=== PATIENT | male | born 1965 | race Caucasian/White ===

== ENCOUNTER → 2018-06-20 09:50 | Outpatient (CLI) | payer OTHER, SELFPAY ==
[2018-06-20 14:49] LABS: Absolute Lymphocyte Count 2.46 X10^3/ul (0.83-4.51); Absolute Neutrophil Count 6.2 X10^3/uL (2.0-7.7); Basophil# 0.04 X10^3/uL; Basophil% 0.4 % (0-1); Eosinophil# 0.34 X10^3/uL; Eosinophils% 3.5 % (0-5); Hematocrit 46.6 % (40-54); Hemoglobin 15.5 g/dl (13.0-16.5); Lymphocyte # 2.46 X10^3/ul (4.0); Lymphocyte % 25.2 % (19-41); Mean Corp Hgb Conc 33.3 g/gl (32-36); Mean Corpuscular Hgb 27.8 pg (27.0-32.0); Mean Corpuscular Volume 83.5 fL (80-94); Mean Platelet Vol. 9.6 fl (6.2-12.0); Monocyte# 0.58 X10^3/uL; Monocyte% 5.9 % (0-10); Neutrophil # 6.22 X10^3/uL (2.7-7.7); Neutrophil % 63.6 % (47-70); POSITIVE COUNT NO; POSITIVE DIFFERENTIAL NO; POSITIVE MORPHOLOGY NO; Platelet Count 194 K/mm3 (150-450); RBC Distribution Width CV 12.6 % (11.6-14.6); RBC Distribution Width SD 38.1 fl (35.1-43.9); Red Blood Count 5.58 M/mm3 (4.6-6.2); White Blood Count 9.8 K/mm3 (4.4-11.0)
[2018-06-20 15:31] LABS: ALB/GLOB Ratio 1.2 RATIO (0.9-2.4); AST(SGOT) 37 U/L (15-37); Alanine Aminotransfer ALT/SGPT 62 U/L (16-61); Albumin, Serum 4.3 g/dL (3.2-5.0); Alkaline Phosphatase 88 U/L (45-117); Anion Gap 8 (5-15); BUN 18 mg/dL (7-18); BUN/Creat Ratio 19.4 RATIO (10-20); Chloride 101 mmol/L (98-107); Cholesterol 140 mg/dL (200); Creatinine, Serum 0.93 mg/dL (0.70-1.30); EST Glomerular Filtration Rate 90 mL/min (>60); Est Glom Filt Rate - Afr Amer 109 mL/min (>60); Globulin 3.7 g/dL (2.2-4.2); Glucose 253 mg/dL (74-106); High Density Lipoprotein 31 mg/dL; Potassium 4.7 mmol/L (3.5-5.1); Sodium Level 135 mmol/L (136-145); Triglycerides 477 mg/dL
== END ==
PROVIDERS: Referring Provider Nurse Practitioner; Visit Provider Nurse Practitioner
DX: E78.5 Hyperlipidemia, unspecified (principal); Z12.5 Encounter for screening for malignant neoplasm of prostate
CPT/HCPCS: 80053; 80061; 84153; 85025; G0103

== ENCOUNTER → 2018-10-03 17:49 | Outpatient (REF) | payer OTHER, SELFPAY ==
[2018-09-28 13:38] VITALS: BMI 32.5
[2018-10-03 18:19] LABS: Cholesterol 89 mg/dL (200); High Density Lipoprotein 37 mg/dL; Triglycerides 118 mg/dL; Very Low Density Lipoprotein 24 mg/dL (5-40)
== END ==
LOC: LAB 17:49
PROVIDERS: Visit Provider Nurse Practitioner
DX: E11.65 Type 2 diabetes mellitus with hyperglycemia (principal)
CPT/HCPCS: 80061

== ENCOUNTER → 2019-01-09 | Outpatient (CLI) | payer OTHER, SELFPAY ==
[2019-01-09 12:39] VITALS: BMI 32.5
[2019-01-09 19:51] LABS: Cholesterol 117 mg/dL (200); High Density Lipoprotein 45 mg/dL; Triglycerides 169 mg/dL; Very Low Density Lipoprotein 34 mg/dL (5-40)
== END | disposition home or self-care (01) ==
PROVIDERS: Referring Provider Nurse Practitioner; Visit Provider Nurse Practitioner
DX: E78.5 Hyperlipidemia, unspecified (principal)
CPT/HCPCS: 80061

== ENCOUNTER → 2019-06-26 16:17 | Outpatient (CLI) | payer OTHER, SELFPAY ==
[2019-06-26 11:03] VITALS: BMI 32.6
[2019-06-26 16:35] LABS: Absolute Lymphocyte Count 2.54 X10^3/uL (0.83-4.51); Absolute Neutrophil Count 6.7 X10^3/uL (2.0-7.7); Basophil# 0.08 X10^3/uL; Basophil% 0.8 % (0-1); Eosinophil# 0.33 X10^3/uL; Eosinophils% 3.1 % (0-5); Hematocrit 49.4 % (40-54); Hemoglobin 16.5 g/dL (13.0-16.5); Lymphocyte # 2.54 X10^3/ul (4.0); Lymphocyte % 24.2 % (19-41); Mean Corp Hgb Conc 33.4 g/dL (32-36); Mean Corpuscular Hgb 28.4 pg (27.0-32.0); Mean Platelet Vol. 9.7 fl (6.2-12.0); Monocyte# 0.67 X10^3/uL; Monocyte% 6.4 % (0-10); NRBC Flagged by Analyzer 0 % (0-5); Neutrophil % 63.8 % (47-70); Platelet Count 230 K/mm3 (150-450); RBC Distribution Width CV 12.6 % (11.6-14.6); RBC Distribution Width SD 38.5 fl (35.1-43.9); Red Blood Count 5.81 M/mm3 (4.6-6.2); White Blood Count 10.5 K/mm3 (4.4-11.0)
[2019-06-26 17:01] LABS: ALB/GLOB Ratio 1.5 RATIO (0.9-2.4); AST(SGOT) 43 U/L (15-37); Alanine Aminotransfer ALT/SGPT 76 U/L (16-61); Albumin, Serum 4.5 g/dL (3.2-5.0); Alkaline Phosphatase 78 U/L (45-117); Anion Gap 8 (5-15); BUN 20 mg/dL (7-18); BUN/Creat Ratio 21.8 RATIO (10-20); Calcium,Total 9.1 mg/dL (8.5-10.1); Chloride 105 mmol/L (98-107); Cholesterol 99 mg/dL (200); Creatinine, Serum 0.92 mg/dL (0.70-1.30); EST Glomerular Filtration Rate 91 mL/min (>60); Est Glom Filt Rate - Afr Amer 110 mL/min (>60); Globulin 3.1 g/dL (2.2-4.2); Glucose 173 mg/dL (74-106); High Density Lipoprotein 35 mg/dL; Magnesium 2.1 mg/dL (1.6-2.6); PSA,Total - Annual Screen 0.45 ng/mL (0.00-4.00); Potassium 4.7 mmol/L (3.5-5.1); Protein, Total 7.6 g/dL (6.4-8.2); Sodium Level 137 mmol/L (136-145); Triglycerides 221 mg/dL; Very Low Density Lipoprotein 44 mg/dL (5-40)
== END ==
PROVIDERS: Visit Provider Nurse Practitioner
DX: I10 Essential (primary) hypertension (principal); R35.0 Frequency of micturition; R25.2 Cramp and spasm; E11.65 Type 2 diabetes mellitus with hyperglycemia
CPT/HCPCS: 80053; 80061; 83735; 84153; 85025; G0103

== ENCOUNTER → 2020-07-03 | Outpatient (CLI) | payer OTHER, SELFPAY ==
[2020-07-03 14:52] VITALS: BMI 31.1
[2020-07-03 22:47] LABS: Absolute Lymphocyte Count 2.34 X10^3/uL (0.83-4.51); Absolute Neutrophil Count 6.8 X10^3/uL (2.0-7.7); Basophil% 0.9 % (0-1); Eosinophils% 4.6 % (0-5); Hematocrit 50.5 % (40-54); Hemoglobin 16.7 g/dL (13.0-16.5); Lymphocyte # 2.34 X10^3/ul (4.0); Lymphocyte % 21.7 % (19-41); Mean Corp Hgb Conc 33.1 g/dL (32-36); Mean Corpuscular Hgb 27.6 pg (27.0-32.0); Mean Corpuscular Volume 83.3 fL (80-94); Mean Platelet Vol. 10.2 fl (6.2-12.0); Monocyte# 0.81 X10^3/uL; Monocyte% 7.5 % (0-10); NRBC Flagged by Analyzer 0 % (0-5); Neutrophil # 6.83 X10^3/uL (2.7-7.7); Neutrophil % 63.6 % (47-70); Platelet Count 225 K/mm3 (150-450); RBC Distribution Width CV 12.5 % (11.6-14.6); RBC Distribution Width SD 37.7 fl (35.1-43.9); Red Blood Count 6.06 M/mm3 (4.6-6.2); White Blood Count 10.8 K/mm3 (4.4-11.0)
[2020-07-03 23:07] LABS: ALB/GLOB Ratio 1.2 RATIO (0.9-2.4); AST(SGOT) 33 U/L (15-37); Alanine Aminotransfer ALT/SGPT 64 U/L (16-61); Albumin, Serum 4.5 g/dL (3.2-5.0); Alkaline Phosphatase 105 U/L (45-117); Anion Gap 9 (5-15); BUN 19 mg/dL (7-18); Calcium,Total 9.7 mg/dL (8.5-10.1); Chloride 101 mmol/L (98-107); Cholesterol 131 mg/dL (200); Creatinine, Serum 0.95 mg/dL (0.70-1.30); EST Glomerular Filtration Rate 87 mL/min (>60); Est Glom Filt Rate - Afr Amer 105 mL/min (>60); Globulin 3.8 g/dL (2.2-4.2); Glucose 156 mg/dL (74-106); High Density Lipoprotein 38 mg/dL; PSA,Total - Annual Screen 0.56 ng/mL (0.00-4.00); Potassium 4.8 mmol/L (3.5-5.1); Protein, Total 8.3 g/dL (6.4-8.2); Sodium Level 136 mmol/L (136-145); Triglycerides 302 mg/dL; Very Low Density Lipoprotein 60 mg/dL (5-40)
[2020-07-03 23:15] LABS: Hemoglobin A1c 11.1 % (3.8-5.6)
== END | disposition home or self-care (01) ==
PROVIDERS: Referring Provider Nurse Practitioner; Visit Provider Nurse Practitioner
DX: I10 Essential (primary) hypertension (principal); E78.5 Hyperlipidemia, unspecified; R35.0 Frequency of micturition; E11.65 Type 2 diabetes mellitus with hyperglycemia
CPT/HCPCS: 80053; 80061; 83036; 84153; 85025; G0103

== ENCOUNTER → 2021-06-22 | Outpatient (CLI) | payer OTHER, SELFPAY ==
[2021-06-22 21:32] LABS: Absolute Lymphocyte Count 1.69 X10^3/uL (0.83-4.51); Absolute Neutrophil Count 11.5 X10^3/uL (2.0-7.7); Basophil# 0.12 X10^3/uL; Basophil% 0.8 % (0-1); Eosinophil# 0.17 X10^3/uL; Eosinophils% 1.2 % (0-5); Hematocrit 48.1 % (40-54); Hemoglobin 16.1 g/dL (13.0-16.5); Lymphocyte # 1.69 X10^3/ul (0.83-4.51); Lymphocyte % 11.5 % (19-41); Mean Corp Hgb Conc 33.5 g/dL (32-36); Mean Corpuscular Hgb 28.2 pg (27.0-32.0); Mean Corpuscular Volume 84.2 fL (80-94); Mean Platelet Vol. 9.9 fl (6.2-12.0); Monocyte# 0.84 X10^3/uL; Monocyte% 5.7 % (0-10); NRBC Flagged by Analyzer 0 % (0-5); Neutrophil # 11.52 X10^3/uL (2.7-7.7); Neutrophil % 78.6 % (47-70); Platelet Count 232 K/mm3 (150-450); Red Blood Count 5.71 M/mm3 (4.6-6.2); White Blood Count 14.7 K/mm3 (4.4-11.0)
[2021-06-22 21:45] LABS: ALB/GLOB Ratio 1.3 RATIO (0.9-2.4); AST(SGOT) 42 U/L (15-37); Alanine Aminotransfer ALT/SGPT 80 U/L (16-61); Albumin, Serum 4.5 g/dL (3.2-5.0); Alkaline Phosphatase 88 U/L (45-117); Anion Gap 10 (5-15); BUN 26 mg/dL (7-18); BUN/Creat Ratio 22.4 RATIO (10-20); Calcium,Total 9.7 mg/dL (8.5-10.1); Chloride 101 mmol/L (98-107); Cholesterol 126 mg/dL (200); Creatinine, Serum 1.16 mg/dL (0.70-1.30); EST Glomerular Filtration Rate 69 mL/min (>60); Est Glom Filt Rate - Afr Amer 83 mL/min (>60); Globulin 3.5 g/dL (2.2-4.2); Glucose 259 mg/dL (74-106); High Density Lipoprotein 39 mg/dL; Potassium 4.3 mmol/L (3.5-5.1); Sodium Level 134 mmol/L (136-145); Triglycerides 294 mg/dL; Very Low Density Lipoprotein 59 mg/dL (5-40)
[2021-06-22 21:53] LABS: Hemoglobin A1c 10.6 % (3.8-5.6)
== END | disposition home or self-care (01) ==
PROVIDERS: Referring Provider Nurse Practitioner; Visit Provider Nurse Practitioner
DX: E11.65 Type 2 diabetes mellitus with hyperglycemia (principal); I10 Essential (primary) hypertension; E78.5 Hyperlipidemia, unspecified
CPT/HCPCS: 80053; 80061; 83036; 85025

== ENCOUNTER → 2022-01-07 | Outpatient (CLI) | payer OTHER, SELFPAY ==
[2022-01-07 23:37] LABS: ALB/GLOB Ratio 1.1 RATIO (0.9-2.4); AST(SGOT) 28 U/L (15-37); Alanine Aminotransfer ALT/SGPT 57 U/L (16-61); Albumin, Serum 3.7 g/dL (3.2-5.0); Alkaline Phosphatase 90 U/L (45-117); Anion Gap 7 (5-15); BUN 23 mg/dL (7-18); BUN/Creat Ratio 21.7 RATIO (10-20); Calcium,Total 8.7 mg/dL (8.5-10.1); Chloride 104 mmol/L (98-107); Creatinine, Serum 1.06 mg/dL (0.70-1.30); EST Glomerular Filtration Rate 76 mL/min (>60); Est Glom Filt Rate - Afr Amer 92 mL/min (>60); Globulin 3.4 g/dL (2.2-4.2); Glucose 363 mg/dL (74-106); Protein, Total 7.1 g/dL (6.4-8.2); Sodium Level 136 mmol/L (136-145)
[2022-01-07 23:47] LABS: Hemoglobin A1c 11.5 % (3.8-5.6)
== END | disposition home or self-care (01) ==
PROVIDERS: Visit Provider Nurse Practitioner
DX: E11.65 Type 2 diabetes mellitus with hyperglycemia (principal); E08.621 Diabetes mellitus due to underlying condition with foot ulcer; L97.519 Non-pressure chronic ulcer of other part of right foot with unspecified severity
CPT/HCPCS: 80053; 83036

== ENCOUNTER → 2022-01-10 | Outpatient (CLI) | payer OTHER, SELFPAY ==
[2022-01-10 21:18] LABS: Lyme Ab Screen Interpretation REF LAB
[2022-01-12 20:40] LABS: Lyme Scn Total Ab w/Rflx Negative (Negative)
== END | disposition home or self-care (01) ==
PROVIDERS: Visit Provider Nurse Practitioner
DX: L03.115 Cellulitis of right lower limb (principal); E08.621 Diabetes mellitus due to underlying condition with foot ulcer; L97.519 Non-pressure chronic ulcer of other part of right foot with unspecified severity
CPT/HCPCS: 86618; 87070; 87077; 87186; 87205

== ENCOUNTER → 2022-06-27 | Outpatient (CLI) | payer OTHER, SELFPAY ==
[2022-06-27 21:36] LABS: Absolute Lymphocyte Count 1.56 X10^3/uL (0.83-4.51); Absolute Neutrophil Count 3.5 X10^3/uL (2.0-7.7); Basophil# 0.05 X10^3/uL; Basophil% 0.8 % (0-1); Eosinophil# 0.23 X10^3/uL; Eosinophils% 3.8 % (0-5); Hematocrit 46.2 % (40-54); Hemoglobin 15.7 g/dL (13.0-16.5); Lymphocyte # 1.56 X10^3/ul (0.83-4.51); Lymphocyte % 25.6 % (19-41); Mean Corpuscular Hgb 28.3 pg (27.0-32.0); Mean Corpuscular Volume 83.2 fL (80-94); Mean Platelet Vol. 9.9 fl (6.2-12.0); Monocyte# 0.63 X10^3/uL; Monocyte% 10.3 % (0-10); NRBC Flagged by Analyzer 0 % (0-5); Neutrophil # 3.51 X10^3/uL (2.7-7.7); Neutrophil % 57.5 % (47-70); Platelet Count 203 K/mm3 (150-450); RBC Distribution Width CV 12.8 % (11.6-14.6); Red Blood Count 5.55 M/mm3 (4.6-6.2); White Blood Count 6.1 K/mm3 (4.4-11.0)
[2022-06-27 22:02] LABS: ALB/GLOB Ratio 1.2 RATIO (0.9-2.4); AST(SGOT) 39 U/L (15-37); Alanine Aminotransfer ALT/SGPT 91 U/L (16-61); Albumin, Serum 4.2 g/dL (3.2-5.0); Alkaline Phosphatase 92 U/L (45-117); Anion Gap 5 (5-15); BUN 17 mg/dL (7-18); BUN/Creat Ratio 19.4 RATIO (10-20); Calcium,Total 9.7 mg/dL (8.5-10.1); Chloride 100 mmol/L (98-107); Cholesterol 121 mg/dL (200); Creatinine, Serum 0.88 mg/dL (0.70-1.30); EST Glomerular Filtration Rate 95 mL/min (>60); Est Glom Filt Rate - Afr Amer 115 mL/min (>60); Globulin 3.6 g/dL (2.2-4.2); Glucose 316 mg/dL (74-106); High Density Lipoprotein 39 mg/dL; PSA,Total - Annual Screen 0.43 ng/mL (0.00-4.00); Potassium 4.3 mmol/L (3.5-5.1); Protein, Total 7.8 g/dL (6.4-8.2); Sodium Level 133 mmol/L (136-145); Triglycerides 365 mg/dL; Very Low Density Lipoprotein 73 mg/dL (5-40)
[2022-06-27 22:11] LABS: Hemoglobin A1c 11.8 % (3.8-5.6)
== END | disposition home or self-care (01) ==
PROVIDERS: Visit Provider Nurse Practitioner
DX: I10 Essential (primary) hypertension (principal); E11.65 Type 2 diabetes mellitus with hyperglycemia; R94.8 Abnormal results of function studies of other organs and systems
CPT/HCPCS: 80053; 80061; 83036; 84153; 85025; G0103

== ENCOUNTER → 2023-07-23 | Outpatient (CLI) | payer OTHER, SELFPAY ==
[2023-07-23 23:18] LABS: Absolute Lymphocyte Count 2.71 X10^3/uL (0.83-4.51); Absolute Neutrophil Count 5.9 X10^3/uL (2.0-7.7); Basophil# 0.08 X10^3/uL; Basophil% 0.8 % (0-1); Eosinophil# 0.37 X10^3/uL; Eosinophils% 3.8 % (0-5); Hematocrit 50.2 % (40-54); Hemoglobin 16.9 g/dL (13.0-16.5); Lymphocyte # 2.71 X10^3/ul (0.83-4.51); Lymphocyte % 27.5 % (19-41); Mean Corp Hgb Conc 33.7 g/dL (32-36); Mean Corpuscular Hgb 28.5 pg (27.0-32.0); Mean Corpuscular Volume 84.5 fL (80-94); Mean Platelet Vol. 9.9 fl (6.2-12.0); Monocyte# 0.71 X10^3/uL; Monocyte% 7.2 % (0-10); NRBC Flagged by Analyzer 0 % (0-5); Neutrophil # 5.85 X10^3/uL (2.7-7.7); Neutrophil % 59.3 % (47-70); Platelet Count 245 K/mm3 (150-450); RBC Distribution Width CV 12.4 % (11.6-14.6); RBC Distribution Width SD 37.4 fl (35.1-43.9); Red Blood Count 5.94 M/mm3 (4.6-6.2); White Blood Count 9.9 K/mm3 (4.4-11.0)
[2023-07-23 23:40] LABS: ALB/GLOB Ratio 1.3 RATIO (0.9-2.4); AST(SGOT) 37 U/L (15-37); Alanine Aminotransfer ALT/SGPT 82 U/L (16-61); Albumin, Serum 4.5 g/dL (3.2-5.0); Alkaline Phosphatase 90 U/L (45-117); Anion Gap 7 (5-15); BUN 14 mg/dL (7-18); BUN/Creat Ratio 18.9 RATIO (10-20); Calcium,Total 9.9 mg/dL (8.5-10.1); Chloride 107 mmol/L (98-107); Cholesterol 130 mg/dL (200); Creatinine, Serum 0.74 mg/dL (0.70-1.30); EST Glomerular Filtration Rate 115 mL/min (>60); Est Glom Filt Rate - Afr Amer 139 mL/min (>60); Globulin 3.5 g/dL (2.2-4.2); Glucose 180 mg/dL (74-106); High Density Lipoprotein 46 mg/dL; Potassium 3.9 mmol/L (3.5-5.1); Sodium Level 137 mmol/L (136-145); Triglycerides 224 mg/dL; Very Low Density Lipoprotein 45 mg/dL (5-40)
== END | disposition home or self-care (01) ==
PROVIDERS: PCP Nurse Practitioner; Visit Provider Nurse Practitioner
DX: E78.5 Hyperlipidemia, unspecified (principal); E11.65 Type 2 diabetes mellitus with hyperglycemia; I10 Essential (primary) hypertension
CPT/HCPCS: 80053; 80061; 84153; 85025; G0103

== ENCOUNTER → 2024-07-27 | Outpatient (CLI) | payer BC, SELFPAY ==
[2024-07-27 22:35] LABS: Absolute Lymphocyte Count 2.78 X10^3/uL (0.83-4.51); Eosinophil# 0.26 X10^3/uL; Eosinophils% 2.6 % (0-5); Hemoglobin 15.5 g/dL (13.0-16.5); Lymphocyte # 2.78 X10^3/ul (0.83-4.51); Lymphocyte % 27.7 % (19-41); Mean Corp Hgb Conc 33.7 g/dL (32-36); Mean Corpuscular Hgb 28.2 pg (27.0-32.0); Mean Corpuscular Volume 83.8 fL (80-94); Mean Platelet Vol. 10.3 fl (6.2-12.0); Monocyte# 0.77 X10^3/uL; Monocyte% 7.7 % (0-10); NRBC Flagged by Analyzer 0 % (0-5); Neutrophil # 5.96 X10^3/uL (2.7-7.7); Neutrophil % 59.2 % (47-70); Platelet Count 238 K/mm3 (150-450); RBC Distribution Width CV 12.3 % (11.6-14.6); RBC Distribution Width SD 37.3 fl (35.1-43.9); Red Blood Count 5.49 M/mm3 (4.6-6.2); White Blood Count 10.1 K/mm3 (4.4-11.0)
[2024-07-27 22:49] LABS: ALB/GLOB Ratio 1.2 RATIO (0.9-2.4); AST(SGOT) 23 U/L (15-37); Alanine Aminotransfer ALT/SGPT 40 U/L (16-61); Albumin, Serum 4.1 g/dL (3.2-5.0); Alkaline Phosphatase 84 U/L (45-117); Anion Gap 8 (5-15); BUN 23 mg/dL (7-18); BUN/Creat Ratio 31.8 RATIO (10-20); Calcium,Total 9.6 mg/dL (8.5-10.1); Chloride 102 mmol/L (98-107); Cholesterol 129 mg/dL (200); Creatinine, Serum 0.72 mg/dL (0.70-1.30); EST Glomerular Filtration Rate 117 mL/min (>60); Est Glom Filt Rate - Afr Amer 142 mL/min (>60); Globulin 3.4 g/dL (2.2-4.2); Glucose 195 mg/dL (74-106); High Density Lipoprotein 37 mg/dL; Magnesium 2.1 mg/dL (1.6-2.6); PSA,Total - Annual Screen 0.36 ng/mL (0.00-4.00); Potassium 4.3 mmol/L (3.5-5.1); Protein, Total 7.5 g/dL (6.4-8.2); Sodium Level 137 mmol/L (136-145); Triglycerides 461 mg/dL
[2024-07-27 23:37] LABS: Hemoglobin A1c 12.7 % (3.8-5.6)
== END | disposition home or self-care (01) ==
PROVIDERS: PCP Nurse Practitioner; Visit Provider Nurse Practitioner
DX: E11.65 Type 2 diabetes mellitus with hyperglycemia (principal); I10 Essential (primary) hypertension; E78.5 Hyperlipidemia, unspecified; F41.9 Anxiety disorder, unspecified; N40.0 Benign prostatic hyperplasia without lower urinary tract symptoms

== ENCOUNTER → 2025-05-24 | Outpatient (CLI) | payer BC, SELFPAY ==
[2025-05-24 22:37] LABS: Hematocrit 46.2 % (40-54); Hemoglobin 15.8 g/dL (13.0-16.5); Immature Granulocytes Count 0.180 X10^3/uL (0.0-0.0); Mean Corp Hgb Conc 34.2 g/dL (32-36); Mean Corpuscular Volume 83.7 fL (80-94); Mean Platelet Vol. 10.1 fl (6.2-12.0); NRBC Flagged by Analyzer 0 % (0-5); Platelet Count 281 K/mm3 (150-450); RBC Distribution Width CV 12.1 % (11.6-14.6); RBC Distribution Width SD 36.6 fl (35.1-43.9); Red Blood Count 5.52 M/mm3 (4.6-6.2); White Blood Count 10.4 K/mm3 (4.4-11.0)
[2025-05-24 23:01] LABS: AST(SGOT) 44 U/L (<=37); Alanine Aminotransfer ALT/SGPT 84 U/L (<=46); Albumin, Serum 4.7 g/dL (3.4-4.8); Alkaline Phosphatase 84 U/L (40-129); Anion Gap 14 (5-15); BUN 29 mg/dL (4-19); BUN/Creat Ratio 29.8 RATIO (10-20); Calcium,Total 9.9 mg/dL (7.6-11.0); Carbon Dioxide 23.5 mmol/L (21.0-32.0); Chloride 97 mmol/L (98-108); Cholesterol 115 mg/dL (<=200); Globulin 2.8 g/dL (2.2-4.2); Glucose 243 mg/dL (70-99); Low Density Lipoprotein Calc. 47 mg/dL; PSA,Total- Diagnostic 0.33 ng/mL (0.00-4.00); Potassium 4.0 mmol/L (3.3-5.1); Triglycerides 169 mg/dL; Troponin T High Sensitivity 23 ng/L (<=22); Very Low Density Lipoprotein 34 mg/dL (5-40); cholesterol:hdl ratio screen 2.89
[2025-05-26 07:08] LABS: CRP, High Sensitivity < 0.15 mg/L (0.00-3.00)
== END | disposition home or self-care (01) ==
LOC: LABSPEC 22:18
PROVIDERS: PCP Nurse Practitioner; Visit Provider Nurse Practitioner
DX: I25.10 Atherosclerotic heart disease of native coronary artery without angina pectoris (principal); E11.65 Type 2 diabetes mellitus with hyperglycemia; I10 Essential (primary) hypertension; R53.1 Weakness
CPT/HCPCS: 80053; 80061; 84153; 84484; 85025; 86141

== ENCOUNTER 2025-05-25 09:17 | Emergency (ER) | payer BC, SELFPAY ==
[2025-05-25 09:18] VITALS: BP 138/86; PULSE 78; RESP 16; TEMP 37.2; O2SAT 98; BMI 24.0
--- NOTE | 2025-05-25 10:04 | EKG12_ITS ---
Test Reason : Blood Pressure : */* mmHG Vent. Rate : 84 BPM Atrial Rate : 84 BPM P-R Int : 184 ms QRS Dur : 116 ms QT Int : 388 ms P-R-T Axes : 58 78 69 degrees QTcB Int : 458 ms Normal sinus rhythm Normal ECG Confirmed by СВЕТЛАНА MCNAMARA, CAMDEN ([id number]), offline editor VIVIANA HOBBS ([id number]) on 05/30/2025 8:23:23 AM Referred By: Confirmed By: CAMDEN SOTOMAYOR MD
--- NOTE | 2025-05-25 10:09 | ED.VIS.CHEST ---
HPI History of Present Illness Chief Complaint: Chest Pain Narrative Narrative: Patient is a 60-year-old male with a past medical history hypertension, hyperlipidemia, diverticulitis, type 2 diabetes, anxiety who presents to the emergency department with a chief complaint of abnormal blood work obtained in the outpatient setting. Patient states that he had routine blood work obtained in the outpatient setting and notes that the blood work was sent here as usual and notes that his physician got a call this morning notified that his troponin was abnormal therefore he was sent here. Patient states that he has not had any chest pain no shortness of breath and has no complaints at this point in time. Patient did note that he is a active individual on a regular basis and states that he is not developed chest pain or shortness of breath with exertion notes that he has not had a stress test. [facility] Medical History CVD (cardiovascular disease) Anxiety Diabetes type 2, uncontrolled thumb laceration on table saw tendon cut 2007 varicosities bad L hip Hypertension Hyperlipidemia Internal bleeding hemorrhoids colonoscopy by Dr Dale 2009 Diverticulitis High triglycerides Home Medications Medication Instructions Recorded Last Taken Type lancets (Accu-Chek Fastclix Lancet #100 ea 07/23/23 Unknown Rx Drum) rosuvastatin 20 mg tablet (Crestor) 20 mg PO DAILY #90 tabs 07/27/24 Unknown Rx lancing device with lancets kit #1 ea 08/09/24 Unknown Rx (Accu-Chek FastClix Lancing Device kit) blood sugar diagnostic (Accu-Chek #100 ea 05/24/25 Unknown Rx SmartView Test Strips) empagliflozin 25 mg-metformin ER 1 tab PO DAILY #30 ea 05/24/25 Unknown Rx 1,000 mg tablet,extended release 24hr (Synjardy XR) ezetimibe 10 mg tablet 10 mg PO DAILY #90 tabs 05/24/25 Unknown Rx semaglutide 1 mg/dose (4 mg/3 mL) 1 mg (0.75 mL) subcut QWEEK 30 05/24/25 Unknown Rx subcutaneous pen injector (Ozempic) days #3.75 mL sertraline 50 mg tablet 50 mg PO QDAY #90 tabs 05/24/25 Unknown Rx Allergy/AdvReac Type Severity Reaction Status Date / Time amoxicillin (From Augmentin) Allergy Severe Swelling Verified 05/25/25 09:18 clavulanic acid (From Allergy Severe Swelling Verified 05/25/25 09:18 Augmentin) atorvastatin (From Lipitor) AdvReac Intermediate did not Verified 05/25/25 09:18 work Family History Other CVA (cerebral vascular accident) Diabetes Diverticulitis Heart disease Surgical History History of left hip replacement History of tonsillectomy Social History Smoking Status: Never smoker second hand exposure: No alcohol intake: current substance use type: does not use ROS ROS ED ROS Narrative Constitutional: Denies any fevers, chills, headaches Eyes: Denies change in vision double vision blurry vision Cardiovascular: Denies chest pain or palpitations Respiratory: Denies coughing wheezing shortness of breath Abdomen: Denies abdominal pain nausea vomit diarrhea : Denies urinary symptoms Neurological: Denies any numbness, weakness, tingling Musculoskeletal: Denies back pain Skin: Denies any rashes or lesions EXAM Physical Exam Narrative Exam Narrative: General: Patient is lying in bed rest comfortably did not appear to be in acute distress Head: Atraumatic, normocephalic Eyes: PERRL bilaterally, EOMI bilateral, no conjunctival injection noted Neck: Soft, supple, trachea midline Cardiovascular: Regular rate and rhythm Respiratory: Clear to auscultation bilaterally Abdomen: No tenderness to palpation Extremities: +5/5 strength noted in the bilateral lower extremities Neurological: Patient follow commands knew that he was at [facility] years 2024 Skin: Warm, dry, intact no rashes or lesions noted Const Vital Signs: 05/25/25 09:18 05/25/25 10:04 05/25/25 10:17 Temperature 98.9 F Temperature Source Oral Pulse Rate 78 87 Respiratory Rate 16 12 Blood Pressure 138/86 H 111/78 Blood Pressure Mean 103 89 Pulse Ox 98 97 Oxygen Delivery Method Room Air Room Air Room Air MDM MDM MDM Narrative Medical decision making narrative: Patient is a 60-year-old male who presents to the emergency department with a chief complaint of abnormal elevated troponins in the outpatient setting. On the differential diagnose includes but not limited to ACS, pneumonia. Once workup is obtained reviewed he will be reevaluated. Patient's CBC was reviewed and showed a white blood count of 10, hemoglobin 15.9, platelet count of 228. Patient sodium is 135, potassium normal 4.3, creatinine normal at 0.68. Patient glucose elevated 202 anion gap normal at 15. Patient troponin was 21 EKG reviewed showed sinus rhythm rate of 84 bpm with VA interval 184. Patient chest x-ray reviewed above 7 by radiology showed minimal increased markings at the bases suggestive of mild linear atelectasis. On reevaluation the patient he is feeling well and would like to go home at this point time. I did advise him since he has not had a stress test yet he should obtain 1 in the outpatient setting. He is advised to follow-up with In the out patient setting and return with worsening symptoms or other concerns. Once again the patient had no chest pain 1 these labs were drawn. Lab Data Labs: Laboratory Results - last 24 hr 05/25/25 09:40 WBC 10.0 RBC 5.52 Hgb 15.9 Hct 47.2 MCV 85.5 MCH 28.8 MCHC 33.7 RDW Std Deviation 38.2 RDW Coeff of Misty 12.3 Plt Count 228 MPV 9.5 Immature Gran % (Auto) 1.700 H Neut % (Auto) 59.2 Lymph % (Auto) 28.2 Giles % (Auto) 6.9 Eos % (Auto) 2.9 Baso % (Auto) 1.1 H Absolute Neuts (auto) 5.9 Absolute Lymphs (auto) 2.82 Nucleated RBC % 0 Sodium 135 Potassium 4.3 Chloride 101 Carbon Dioxide 20.2 L Anion Gap 15 BUN 21 H Creatinine 0.68 L Estim Creat Clear Calc 121.50 Est GFR (MDRD) Non-Af 106 BUN/Creatinine Ratio 30.6 H Glucose 202 H Calcium 9.7 Troponin T High Sens 21 D Radiography Diagnostic Testing: Clinical Impression(s) from Imaging Studies Chest X-Ray 05/25/25 10:15 IMPRESSION: Minimal increased markings at the lung bases suggestive of mild linear atelectasis. Reading Location: [place] [id number] Discharge Plan Triage Chief Complaint: Chest Pain ED Provider: Hemal Tucker Dx/Rx/DC Orders Clinical Impression: Hypertension, Diabetes type 2, uncontrolled, Encounter for medical screening examination Prescriptions: No Action (DME) lancets [Accu-Chek Fastclix Lancet Drum] Misc See Rx Instructions .ROUTE .MEDSUPPLY Qty: 100 12RF Rx Instructions: test sugar 2-3 x a day as needed rosuvastatin [Crestor] 20 mg tablet 20 mg PO DAILY Qty: 90 3RF (DME) lancing device with lancets [Accu-Chek FastClix Lancing Dev] Kit See Dose Instructions .ROUTE .MEDSUPPLY Qty: 1 12RF Rx Instructions: As directed Synjardy XR 25-1,000 mg tablet, IR - ER, biphasic 24hr 1 tab PO DAILY Qty: 30 12RF (DME) Accu-Chek SmartView Test Strip Strip See Dose Instructions .ROUTE .MEDSUPPLY Qty: 100 12RF Rx Instructions: bid testing and prn ezetimibe 10 mg tablet 10 mg PO DAILY Qty: 90 3RF Ozempic 1 mg/dose (4 mg/3 mL) pen injector 1 mg subcut QWEEK 30 Days Qty: 3.75 5RF sertraline 50 mg tablet 50 mg PO QDAY Qty: 90 3RF Primary Care Provider: Berenice Pittman NP Referrals: Berenice Pittman NP, [facility] [Primary Care Provider, Family Practice] Activity Restrictions/Additional Instructions: The test that was abnormal on your blood work yesterday is normal today your EKG was normal your chest x-ray is normal. Follow-up with your doctor in the outpatient setting and return with worsening symptoms or any other concerns Print Language: Azeri Disposition Disposition: Home, Self Care
--- NOTE | 2025-05-25 10:15 | RAD_ITS ---
PROCEDURE: CHEST 1 VIEW (PORTABLE) 05/25/2025 REASON FOR EXAM: CHEST PAIN TECHNIQUE: Frontal view of the chest. COMPARISON: None FINDINGS: Hardware: EKG electrodes are seen. Heart: The heart size is normal. Lungs: Minimal increased markings at the lung bases suggestive of atelectasis. Bones: The bones are unremarkable. RAD/Chest 1 View (Portable) IMPRESSION: Minimal increased markings at the lung bases suggestive of mild linear atelecta sis. [facility]
[2025-05-25 10:17] VITALS: BP 111/78; PULSE 87; RESP 12; O2SAT 97
[2025-05-25 10:17] LABS: Hematocrit 47.2 % (40-54); Hemoglobin 15.9 g/dL (13.0-16.5); Immature Granulocytes Count 0.170 X10^3/uL (0.0-0.0); Mean Corp Hgb Conc 33.7 g/dL (32-36); Mean Corpuscular Volume 85.5 fL (80-94); Mean Platelet Vol. 9.5 fl (6.2-12.0); NRBC Flagged by Analyzer 0 % (0-5); Platelet Count 228 K/mm3 (150-450); RBC Distribution Width CV 12.3 % (11.6-14.6); RBC Distribution Width SD 38.2 fl (35.1-43.9); Red Blood Count 5.52 M/mm3 (4.6-6.2); White Blood Count 10.0 K/mm3 (4.4-11.0)
[2025-05-25 10:36] LABS: Troponin T High Sensitivity 21 ng/L (<=22)
[2025-05-25 10:38] LABS: Anion Gap 15 (5-15); BUN 21 mg/dL (4-19); BUN/Creat Ratio 30.6 RATIO (10-20); Calcium,Total 9.7 mg/dL (7.6-11.0); Carbon Dioxide 20.2 mmol/L (21.0-32.0); Chloride 101 mmol/L (98-108); Estimated Creatinine Clearance 121.50 ml/min (50-250); Glucose 202 mg/dL (70-99); Potassium 4.3 mmol/L (3.3-5.1)
[2025-05-25 11:54] VITALS: BP 104/80; PULSE 105; RESP 18; TEMP 36.7; O2SAT 98
== END 2025-05-25 11:57 | disposition home or self-care (01) ==
PROVIDERS: Emergency Provider Emergency Medicine; PCP Nurse Practitioner; Visit Provider Emergency Medicine
DX: R07.9 Chest pain, unspecified (principal); E11.9 Type 2 diabetes mellitus without complications; I10 Essential (primary) hypertension; Z13.9 Encounter for screening, unspecified; F41.9 Anxiety disorder, unspecified; E78.5 Hyperlipidemia, unspecified; Z79.899 Other long term (current) drug therapy; Z79.84 Long term (current) use of oral hypoglycemic drugs; Z79.85 Long-term (current) use of injectable non-insulin antidiabetic drugs; Z96.642 Presence of left artificial hip joint
CPT/HCPCS: 71045; 80048; 84484; 85025; 93005; 99284; A4216

== ENCOUNTER → 2025-06-30 | Outpatient (CLI) | payer BC, SELFPAY ==
--- OUTSIDE RECORDS SUMMARY | 2025-06-30 21:20 | XMS RPT_ITS | CCD ---
Author Organization [facility] Care Team Providers Care Finish Mender Name Role Phone Zain POPPED [employer]N OVEN ATTENDANT, Berenice Attending Unavailable Zain POPPED [employer] OVEN ATTENDANT, Berenice Primary Care Unavailable Zain TANG, Berenice Attending Unavailable Zain POPPED [employer] OV[employer] ATTENDANT, Berenice Primary Care Unavailable Hemal Tucker Attending Unavailable Zain POPPED [employer]EN ATTENDANT, Berenice Primary Care Unavailable Allergies Allergy Classification Reported Allergen(s) Allergy Type Date of Onset Reaction(s) Facility (4 sources) Amoxicillin Drug Allergy 06-19-2018 Swelling [facility] (4 sources) atorvastatin Drug Allergy 06-19-2018 did not work [facility] (4 sources) Clavulanate Drug Allergy 06-19-2018 [facility] (1 source) Amoxicillin Drug Allergy 05-25-2025 [facility] (1 source) atorvastatin Drug Allergy 05-25-2025 [facility] (1 source) Clavulanate Drug Allergy 05-25-2025 [facility] Medications Current Medications Medication Drug Class(es) Dates Sig (Normalized) Sig (Original) 24 hr empagliflozin 25 mg / metFORMIN hydrochloride 1000 mg extended release oral tablet (14 sources) Biguanide, Sodium-Glucose Cotransporter 2 Inhibitor Start: 02-29-2020 End: 07-23-2023 take 1 tablet by mouth once daily Empagliflozin-Metf ormin (Synjardy Xr) 25-1,000 mg tablet, IR - ER, biphasic 24hr Active 1 TABLET PO DAILY July 23, 2023 7:50pm ezetimibe 10 mg oral tablet (20 sources) Dietary Cholesterol Absorption Inhibitor Start: 06-19-2018 End: 07-23-2023 take 10 mg by mouth once daily Ezetimibe Active 10 MG PO DAILY July 23, 2023 7:51pm rosuvastatin calcium 20 mg oral tablet (20 sources) HMG-CoA Reductase Inhibitor Start: 06-19-2018 End: 07-23-2023 take 1 tablet by mouth once daily Rosuvastatin (Crestor) 20 mg tablet Active 20 MG PO DAILY July 23, 2023 7:51pm sertraline 50 mg oral tablet (13 sources) Serotonin Reuptake Inhibitor Start: 02-09-2021 End: 07-23-2023 take 50 mg by mouth once daily Sertraline Active 50 MG PO daily July 23, 2023 7:51pm Completed/Discontinued Medications Medication Drug Class(es) Dates Sig (Normalized) Sig (Original) azithromycin 250 mg oral tablet (2 sources) Macrolide Antimicrobial Start: 04-25-2022 End: 04-30-2022 Azithromycin Discontinued 250 MG PO daily 6 April 24, 2022 11:00pm April 29, 2022 11:03pm 2 po qd for 1 day then 1 po qd for 4 days with food or after eating 24 hr canagliflozin 150 mg / metFORMIN hydrochloride 1000 mg extended release oral tablet (12 sources) Biguanide, Sodium-Glucose Cotransporter 2 Inhibitor Start: 06-26-2019 End: 02-29-2020 take 150-1000 mg by mouth every twenty-four hours Canagliflozin-Metf ormin (Invokamet Xr) 150-1,000 mg tablet, IR - ER, biphasic 24hr Discontinued 2 TABLET PO DAILY 60 June 26, 2019 11:14am February 29, 2020 11:57am Start: 06-19-2018 End: 06-26-2019 take 2 tablets by mouth once daily canagliflozin 150 mg-metformin ER 1,000 mg tablet,extend release 24 hr Discontinued 2 TABLET PO DAILY 60 June 27, 2018 10:11am June 26, 2019 11:14am cephalexin 500 mg oral capsule (4 sources) Cephalosporin Antibacterial Start: 02-09-2021 End: 02-19-2021 take 500 mg by mouth twice daily Cephalexin Discontinued 500 MG PO TWICE A DAY 02 05February 08, 2021 11:00pm February 18, 2021 11:01pm clindamycin 300 mg oral capsule (3 sources) Lincosamide Antibacterial Start: 01-15-2022 End: 06-27-2022 take 300 mg by mouth three times daily Clindamycin Hcl Discontinued 300 MG PO THREE TIMES A DAY January 14, 2022 11:00pm Homar 15th, 2022 6:03pm 0.5 ml dulaglutide 3 mg/ml auto-injector (4 sources) GLP-1 Receptor Agonist Start: 07-11-2018 End: 08-03-2018 Dulaglutide (Trulicity) 1.5 mg/0.5 mL pen injector Discontinued 1.5 MG SC EVERY WEEK 2 July 11, 2018 12:00am August 03, 2018 2:43pm 0.85 ml exenatide 2.35 mg/ml auto-injector (20 sources) GLP-1 Receptor Agonist Start: 08-03-2018 End: 06-26-2023 Exenatide Microspheres (Bydureon Bcise) 2 mg/0.85 mL auto-injector Discontinued 2 MG SC Q7D 3.4 August 03, 2018 4:48pm June 26, 2019 11:14am Start: 07-11-2018 End: 07-14-2018 Exenatide Microspheres (Bydu reon Bcise) 2 mg/0.85 mL auto-injector Discontinued 2 MG SC Q7D 3.4 July 11, 2018 10:09am July 14, 2018 12:48pm fluconazole 100 mg oral tablet (4 sources) Azole Antifungal Start: 01-07-2022 End: 04-25-2022 take 100 mg by mouth once daily Fluconazole Discontinued 100 MG PO daily January 06, 2022 11:00pm April 25, 2022 6:11pm lisinopril 10 mg oral tablet (16 sources) Angiotensin Converting Enzyme Inhibitor Start: 06-19-2018 End: 04-25-2022 take 10 mg by mouth once daily Lisinopril Discontinued 10 MG PO DAILY July 03, 2020 3:05pm April 25, 2022 6:08pm On Hold: Ordered metroNIDAZOLE 250 mg oral tablet (3 sources) Nitroimidazole Antimicrobial Start: 01-11-2022 End: 01-21-2022 take 250 mg by mouth three times daily Metronidazole Discontinued 250 MG PO THREE TIMES A DAY 12 05January 10, 2022 11:00pm January 20, 2022 11:03pm sulfamethoxazole 800 mg / trimethoprim 160 mg oral tablet (5 sources) Dihydrofolate Reductase Inhibitor Antibacterial, Sulfonamide Antimicrobial Start: 02-19-2023 End: 03-01-2023 take 1 tablet by mouth twice daily Sulfamethoxazole-T rimethoprim Discontinued 1 TABLET PO TWICE A DAY 02 05February 18, 2023 11:00pm February 28, 2023 11:10pm Start: 2022 End: 01-20-2022 take 1 tablet by mouth twice daily Sulfamethoxazole-Trimethoprim Discontinu ed 1 TABLET PO TWICE A DAY 02 05January 09, 2022 11:00pm January 19, 2022 11:03pm Problems Active Problems Problem Classification Problem Date Documented Date Episodic/Chronic Anxiety disorders (4 sources) Anxiety; Translations: [Anxiety disorder, unspecified] 05-11-2021 Chronic Anxiety disorders (4 sources) Difficulty controlling anger; Translations: [Irritability and anger] 02-09-2021 Episodic Chronic obstructive pulmonary disease and bronchiectasis (2 sources) Bronchitis; Translations: [Bronchitis, not specified as acute or chronic] 04-25-2022 Episodic Complications of surgical procedures or medical care (1 source) Injection site infection; Translations: [Infection following other infusion, transfusion and therapeutic injection, initial encounter] 02-19-2023 Episodic Coronary atherosclerosis and other heart disease (1 source) Atherosclerotic heart disease of [place] coronary artery without angina pectoris; Translations: [Atherosclerotic heart disease of [place] coronary artery without angina pectoris] Onset: 05-25-2025 Chronic Diabetes mellitus with complications (9 sources) Type II diabetes mellitus uncontrolled; Translations: [Uncontrolled type 2 diabetes mellitus] Onset: 08-18-2024 06-26-2019 Chronic Disorders of lipid metabolism (4 sources) Hyperlipidemia; Translations: [Hyperlipidemia, unspecified] 06-27-2018 Chronic Essential hypertension (4 sources) Hypertensive disorder; Translations: [Essential (primary) hypertension] 06-26-2019 Chronic Other nervous system disorders (4 sources) Peripheral nerve disease ; Translations: [Polyneuropathy, unspecified] 01-07-2022 Chronic Other skin disorders (4 sources) Ingrowing nail of toe of left foot; Translations: [Ingrowing nail] 02-09-2021 Episodic Other upper respiratory infections (2 sources) Sinusitis; Translations: [Chronic sinusitis, unspecified] 04-25-2022 Chronic Otitis media and related conditions (2 sources) Acute right otitis media; Translations: [Otitis media, unspecified, right ear] 04-25-2022 Episodic Skin and subcutaneous tissue infections (5 sources) Cellulitis of lower leg; Translations: [Cellulitis of right lower limb] 2022 Episodic Past or Other Problems Problem Classification Problem Date Documented Da te Episodic/Chronic Unclassified (2 sources) bad L hip 02-11-2022 Unclassified (2 sources) colonoscopy by Dr Dale 200902-11-2022 Unclassified (2 sources) thumb laceration on table saw tendon cut 200702-11-2022 Unclassified (2 sources) varicosities 02-11-2022 Results Test Name Value Interpretation Reference Range Facility CRP, High Sensitivity [id number] on 05-26-2025 CRP, HIGH SENS < 0.15 Normal 0.00-3.00 [facility] Comment on above: Result Comment: Rela tive Risk for Future Cardiovascular Event Low <1.00 Average 1.00 - 3.00 High >3.00 Performed at: [address] [id number] Global Compensation Manager: Jabier Ashford PhD, Phone: [phone] Performed By: #### L 3100.7870 #### [facility] [address] [place], [place], [id number] Basic Metabolic Profile (BMP )on 05-25-2025 BUN/CRE 30.6 RATIO High 10-20 [facility] Comment on above: Performed By: #### L 500.4050, L501.9985, L500.4100, L100.0100, L501.5200, L501.9910 #### [facility] [address] [place], [place], [id number] (475) Calcium [Mass/Vol] 9.7 mg/dL Normal 7.6-11.0 [facility] Comment on above: Performed By: #### L 500.4050, L501.9985, L500.4100, L100.0100, L501.5200, L501.9910 #### [facility] [address] [place], [address] Chloride [Moles/Vol] 101 mmol/L Normal 98-108 [facility] Comment on above: Performed By: #### L 500.4050, L501.9985, L500.4100, L100.0100, L501.5200, L501.9910 #### [facility] [address] [place], [address] CO2 [Moles/Vol] 20.2 mmol/L Low 21.0-32.0 [facility] Comment on above: Performed By: #### L 500.4050, L501.9985, L500.4100, L100.0100, L501.5200, L501.9910 #### [facility] [address] [place], [address] Creatinine [Mass/Vol] 0.68 mg/dL Low 0.70-1.20 [facility] Comment on above: Performed By: #### L 500.4050, L501.9985, L500.4100, L100.0100, L501.5200, L501.9910 #### [facility] [address] [place], [address] ECRCL 121.50 ml/min Normal 50-250 [facility] Comment on above: Performed By: #### L 500.4050, L501.9985, L500.4100, L100.0100, L501.5200, L501.9910 #### [facility] [address] [place], [address] GAP 15 Normal 5-15 [facility] Comment on above: Performed By: #### L 500.4050, L501.9985, L500.4100, L100.0100, L501.5200, L501.9910 #### [facility] [address] [place], [address] GFR/1.73 sq M.predicted among non-blacks MDRD (S/P/Bld) [Vol rate/Area] 106 mL/min/{1.73_m2} Normal >60 [facility] Comment on above: Result Comment: mL/m in/1.73m2 CKD-EPI Creatinine Equation (2020) Performed By: #### L 500.4050, L501.9985, L500.4100, L100.0100, L501.5200, L501.9910 #### [facility] [address] [place], [address] Glucose [Mass/Vol] 202 mg/dL High 70-99 [facility] Comment on above: Performed By: #### L 500.4050, L501.9985, L500.4100, L100.0100, L501.5200, L501.9910 #### [facility] [address] [place], [address] Potassium [Moles/Vol] 4.3 mmol/L Normal 3.3-5.1 [facility] Comment on above: Result Comment: Hemo lysis present, Results??could be affected. ?? Performed By: #### L 500.4050, L501.9985, L500.4100, L100.0100, L501.5200, L501.9910 #### [facility] [address] [place], [address] Sodium [Moles/Vol] 135 mmol/L Normal 133-145 [facility] Comment on above: Performed By: #### L 500.4050, L501.9985, L500.4100, L100.0100, L501.5200, L501.9910 #### [facility] [address] [place], [address] Urea nitrogen [Mass/Vol] 21 mg/dL High 4-19 [facility] Comment on above: Performed By: #### L 500.4050, L501.9985, L500.4100, L100.0100, L501.5200, L501.9910 #### [facility] [address] [place], [address] CBC W/Diff, Automatedon 11- Absolute Lymph 2.82 X10 3/uL Normal 0.83-4.51 [facility] Comment on above: Performed By: #### L 500.4050, L501.9985, L500.4100, L100.0100, L501.5200, L501.9910 #### [facility] [address] [place], [address] Absolute Neut 5.9 X10 3/uL Normal 2.0-7.7 [facility] Comment on above: Performed By: #### L 500.4050, L501.9985, L500.4100, L100.0100, L501.5200, L501.9910 #### [facility] [address] [place], [address] Basophils/100 WBC (Bld) 1.1 % High 0-1 [facility] Comment on above: Performed By: #### L 500.4050, L501.9985, L500.4100, L100.0100, L501.5200, L501.9910 #### [facility] [address] [place], [address] Eosinophils/100 WBC (Bld) 2.9 % Normal 0-5 [facility] Comment on above: Performed By: #### L 500.4050, L501.9985, L500.4100, L100.0100, L501.5200, L501.9910 #### [facility] [address] [place], [address] Erythrocyte distribution width (RBC) [Ratio] 12.3 % Normal 11.6-14.6 [facility] Comment on above: Performed By: #### L 500.4050, L501.9985, L500.4100, L100.0100, L501.5200, L501.9910 #### [facility] [address] [place], [address] Hematocrit (Bld) [Volume fraction] 47.2 % Normal 40-54 [facility] Comment on above: Performed By: #### L 500.4050, L501.9985, L500.4100, L100.0100, L501.5200, L501.9910 #### [facility] [address] [place], [address] Hemoglobin (Bld) [Mass/Vol] 15.9 g/dL Normal 13.0-16.5 [facility] Comment on above: Performed By: #### L 500.4050, L501.9985, L500.4100, L100.0100, L501.5200, L501.9910 #### [facility] [address] [place], [address] IG% 1.700 High 0.0-0.9 [facility] Comment on above: Result Comment: IG% - Immature Granulocytes (promyelocytes, myelocytes and metamyelocytes) > 1% indicates that a LEFT SHIFT is Present. Performed By: #### L 500.4050, L501.9985, L500.4100, L100.0100, L501.5200, L501.9910 #### [facility] [address] [place], [address] Lymphocytes/100 WBC (Bld) 28.2 % Normal 19-41 [facility] Comment on above: Performed By: #### L 500.4050, L501.9985, L500.4100, L100.0100, L501.5200, L501.9910 #### [facility] [address] [place], [address] MCH (RBC) [Entitic mass] 28.8 pg Normal 27.0-32.0 [facility] Comment on above: Performed By: #### L 500.4050, L501.9985, L500.4100, L100.0100, L501.5200, L501.9910 #### [facility] [address] [place], [address] MCHC (RBC) [Mass/Vol] 33.7 g/dL Normal 32-36 [facility] Comment on above: Performed By: #### L 500.4050, L501.9985, L500.4100, L100.0100, L501.5200, L501.9910 #### [facility] [address] [place], [address] MCV (RBC) [Entitic vol] 85.5 fL Normal 80-94 [facility] Comment on above: Performed By: #### L 500.4050, L501.9985, L500.4100, L100.0100, L501.5200, L501.9910 #### [facility] [address] [place], [address] Monocytes/100 WBC (Bld) 6.9 % Normal 0-10 [facility] Comment on above: Performed By: #### L 500.4050, L501.9985, L500.4100, L100.0100, L501.5200, L501.9910 #### [facility] [address] [place], [address] Neutrophils/100 WBC (Bld) 59.2 % Normal 47-70 [facility] Comment on above: Performed By: #### L 500.4050, L501.9985, L500.4100, L100.0100, L501.5200, L501.9910 #### [facility] [address] [place], [address] Nucleated RBC (Bld) [#/Vol] 0 10*3/uL Normal 0-5 [facility] Comment on above: Performed By: #### L 500.4050, L501.9985, L500.4100, L100.0100, L501.5200, L501.9910 #### [facility] [address] [place], [address] Platelet mean volume (Bld) [Entitic vol] 9.5 fL Normal 6.2-12.0 [facility] Comment on above: Performed By: #### L 500.4050, L501.9985, L500.4100, L100.0100, L501.5200, L501.9910 #### [facility] [address] [place], [address] Platelets (Bld) [#/Vol] 228 10*3/uL Normal 150-450 [facility] Comment on above: Performed By: #### L 500.4050, L501.9985, L500.4100, L100.0100, L501.5200, L501.9910 #### [facility] [address] [place], [address] RBC (Bld) [#/Vol] 5.52 10*6/uL Normal 4.6-6.2 [facility] Comment on above: Performed By: #### L 500.4050, L501.9985, L500.4100, L100.0100, L501.5200, L501.9910 #### [facility] [address] [place], [address] RDW SD 38.2 fl Normal 35.1-43.9 [facility] Comment on above: Performed By: #### L 500.4050, L501.9985, L500.4100, L100.0100, L501.5200, L501.9910 #### [facility] [address] [place], [address] WBC (Bld) [#/Vol] 10.0 10*3/uL Normal 4.4-11.0 [facility] Comment on above: Performed By: #### L 500.4050, L501.9985, L500.4100, L100.0100, L501.5200, L501.9910 #### [facility] [address] [place], [address] Chest 1 View (Portable)on Chest 1 View (Portable) [facility] Imaging Services [address] [address] Chest 1 View (Portable) MR#: [id number] Acct: [id number] Name: EMILY GONZALEZ R Rep #: [id number] : 1965 M 60 From: Rogerio charles MD PCP: LYNETTE Corado Status: REG ER Study: Chest 1 View (Portable) Date of Exam: 05/25/25 Exam# [id number] Ordering Dr: Hemal Tucker DO PROCEDURE: CHEST 1 VIEW (PORTABLE) 05/25/2025 REASON FOR EXAM: CHEST PAIN TECHNIQUE: Frontal view of the chest. COMPARISON: None FINDINGS: Hardware: EKG electrodes are seen. Heart: The heart size is normal. Lungs: Minimal increased markings at the lung bases suggestive of atelectasis. Bones: The bones are unremarkable. RAD/Chest 1 View (Portable) IMPRESSION: Minimal increased markings at the lung bases suggestive of mild linear atelectasis. Reading Location: [place] [address] CC: POPPED CORN OVEN ATTENDANT-C Berenice Pittman; Dr. Hemal Tucker DO Winder Contort Operator: Signed Normal [facility] Emergency Department Summary on 05-25-2025 Emergency Department Summary [facility] Medical Records Department [address] [place] [address] Emergency Department Summary 05/25/25 MR#: [id number] Acct: [id number] Name: EMILY GONZALEZ R Rep #: [id number] : 1965 60 From: Hemal Tucker DO PCP: LYNETTE Corado Status:REG ER Location: ED HPI History of Present Illness Chief Complaint: Chest Pain Narrative Narrative: Patient is a 60-year-old male with a past medical history hypertension, hyperlipidemia, diverticulitis, type 2 diabetes, anxiety who presents to the emergency department with a chief complaint of abnormal blood work obtained in the outpatient setting. Patient states that he had routine blood work obtained in the outpatient setting and notes that the blood work was sent here as usual and notes that his physician got a call this morning notified that his troponin was abnormal therefore he was sent here. Patient states that he has not had any chest pain no shortness of breath and has no complaints at this point in time. Patient did note that he is a active individual on a regular basis and states that he is not developed chest pain or shortness of breath with exertion notes that he has not had a stress test. [facility] Medical History CVD (cardiovascular disease) Anxiety Diabetes type 2, uncontrolled thumb laceration on table saw tendon cut 2007 varicosities bad L hip Hypertension Hyperlipidemia Internal bleeding hemorrhoids colonoscopy by Dr Dale 2009 Diverticulitis High triglycerides Home Medications ???Medication ???Instructions ???Recorded ???Last Taken ???Type lancets (Accu-Chek Fastclix Lancet #100 ea 07/23/23 Unknown Rx Drum) rosuvastatin 20 mg tablet (Crestor) 20 mg PO DAILY #90 tabs 5 Unknown Rx lancing device with lancets kit #1 ea 08/09/24 Unknown Rx (Accu-Chek FastClix Lancing Device kit) blood sugar diagnostic (Accu-Chek #100 ea 05/24/25 Unknown Rx SmartView Test Strips) empagliflozin 25 mg-metformin ER 1 tab PO DAILY #30 ea 05/24/25 Unk nown Rx 1,000 mg tablet,extended release 24hr (Synjardy XR) ezetimibe 10 mg tablet 10 mg PO DAILY #90 tabs 05/24/25 U nknown Rx semaglutide 1 mg/dose (4 mg/3 mL) 1 mg (0.75 mL) subcut QWEEK 30 Unknown Rx subcutaneous pen injector (Ozempic) days #3.75 mL sertraline 50 mg tablet 50 mg PO QDAY #90 tabs 05/24/25 Un known Rx Allergy/AdvReac Type Severity Reaction Status Date / Time amoxicillin (From Augmentin) Allergy Severe Swelling Verified 05/25/25 09:18 clavulanic acid (From Allergy Severe Swelling Verified 05/25/25 09:18 Augmentin) atorvastatin (From Lipitor) AdvReac Intermediate did not Verified 05/25/25 09:18 work Family History Other CVA (cerebral vascular accident) Diabetes Diverticulitis Heart disease Surgical History History of left hip replacement History of tonsillectomy Social History Smoking Status: Never smoker second hand exposure: No alcohol intake: current substance use type: does not use ROS ROS ED ROS Narrative Constitutional: Denies any fevers, chills, headaches Eyes: Denies change in vision double vision blurry vision Cardiovascular: Denies chest pain or palpitations Respiratory: Denies coughing wheezing shortness of breath Abdomen: Denies abdominal pain nausea vomit diarrhea : Denies urinary symptoms Neurological: Denies any numbness, weakness, tingling Musculoskeletal: Denies back pain Skin: Denies any rashes or lesions EXAM Physical Exam Narrative Exam Narrative: General: Patient is lying in bed rest comfortably did not appear to be in acute distress Head: Atraumatic, normocephalic Eyes: PERRL bilaterally, EOMI bilateral, no conjunctival injection noted Neck: Soft, supple, trachea midline Cardiovascular: Regular rate and rhythm Respiratory: Clear to auscultation bilaterally Abdomen: No tenderness to palpation Extremities: +5/5 strength noted in the bilateral lower extremities Neurological: Patient follow commands knew that he was at [facility] years 2024 Skin: Warm, dry, intact no rashes or lesions noted Const Vital Signs: 05/25/25 09:18 05/25/25 10:04 05/25/25 10:17 Temperature 98.9 F Temperature Source Oral Pulse Rate 78 87 Respiratory Rate 16 12 Blood Pressure 138/86 H 111/78 Blood Pressure Mean 103 89 Pulse Ox 98 97 Oxygen Delivery Method Room Air Room Air Room Air MDM MDM MDM Narrative Medical decision making narrative: Patient is a 60-year-old male who presents to the emergency department with a chief complaint of abnormal elevated troponins in (more content not included)... Normal [facility] L501.4021on 05-25-2025 Trop T High Sen 21 ng/L Normal <=22 [facility] Comment on above: Performed By: #### L 500.4050, L501.9985, L500.4100, L100.0100, L501.5200, L501.9910 #### [facility] [address] [place], [address] Troponin T HS 2 HRon 025 Trop T High Sen Normal <=22 [facility] Comment on above: Result Comment: Phil velásquez via OM: Ordered Performed By: #### L 499.0042 #### [facility] [address] [place], [address] Troponin T HS 4 HRon 025 Trop T High Sen Normal <=22 [facility] Comment on above: Result Comment: Phil velásquez via OM: Ordered Performed By: #### L 500.4050, L501.9985, L500.4100, L100.0100, L501.5200, L501.9910 #### [facility] [address] [place], [address] CBC W/Diff, Automatedon 05-14 Absolute Lymph 2.98 X10 3/uL Normal 0.83-4.51 [facility] Comment on above: Performed By: #### L 500.4050, L501.9985, L500.4100, L100.0100, L501.5200, L501.9910 #### [facility] [address] [place], [address] Absolute Neut 6.2 X10 3/uL Normal 2.0-7.7 [facility] Comment on above: Performed By: #### L 500.4050, L501.9985, L500.4100, L100.0100, L501.5200, L501.9910 #### [facility] [address] [place], [address] Basophils/100 WBC (Bld) 0.9 % Normal 0-1 [facility] Comment on above: Performed By: #### L 500.4050, L501.9985, L500.4100, L100.0100, L501.5200, L501.9910 #### [facility] [address] [place], [address] Eosinophils/100 WBC (Bld) 2.3 % Normal 0-5 [facility] Comment on above: Performed By: #### L 500.4050, L501.9985, L500.4100, L100.0100, L501.5200, L501.9910 #### [facility] [address] [place], [address] Erythrocyte distribution width (RBC) [Ratio] 12.1 % Normal 11.6-14.6 [facility] Comment on above: Performed By: #### L 500.4050, L501.9985, L500.4100, L100.0100, L501.5200, L501.9910 #### [facility] [address] [place], [address] Hematocrit (Bld) [Volume fraction] 46.2 % Normal 40-54 [facility] Comment on above: Performed By: #### L 500.4050, L501.9985, L500.4100, L100.0100, L501.5200, L501.9910 #### [facility] [address] [place], [address] Hemoglobin (Bld) [Mass/Vol] 15.8 g/dL Normal 13.0-16.5 [facility] Comment on above: Performed By: #### L 500.4050, L501.9985, L500.4100, L100.0100, L501.5200, L501.9910 #### [facility] [address] [place], [address] IG% 1.700 High 0.0-0.9 [facility] Comment on above: Result Comment: IG% - Immature Granulocytes (promyelocytes, myelocytes and metamyelocytes) > 1% indicates that a LEFT SHIFT is Present. Performed By: #### L 500.4050, L501.9985, L500.4100, L100.0100, L501.5200, L501.9910 #### [facility] [address] [place], [address] Lymphocytes/100 WBC (Bld) 28.5 % Normal 19-41 [facility] Comment on above: Performed By: #### L 500.4050, L501.9985, L500.4100, L100.0100, L501.5200, L501.9910 #### [facility] [address] [facility] [place], [address] MCH (RBC) [Entitic mass] 28.6 pg Normal 27.0-32.0 [facility] Comment on above: Performed By: #### L 500.4050, L501.9985, L500.4100, L100.0100, L501.5200, L501.9910 #### [facility] [address] [place], [address] MCHC (RBC) [Mass/Vol] 34.2 g/dL Normal 32-36 [facility] Comment on above: Performed By: #### L 500.4050, L501.9985, L500.4100, L100.0100, L501.5200, L501.9910 #### [facility] [address] [facility] [place], [address] MCV (RBC) [Entitic vol] 83.7 fL Normal 80-94 [facility] Comment on above: Performed By: #### L 500.4050, L501.9985, L500.4100, L100.0100, L501.5200, L501.9910 #### [facility] [address] [place], [address] Monocytes/100 WBC (Bld) 7.2 % Normal 0-10 [facility] Comment on above: Performed By: #### L 500.4050, L501.9985, L500.4100, L100.0100, L501.5200, L501.9910 #### [facility] [address] [place], [address] Neutrophils/100 WBC (Bld) 59.4 % Normal 47-70 [facility] Comment on above: Performed By: #### L 500.4050, L501.9985, L500.4100, L100.0100, L501.5200, L501.9910 #### [facility] [address] [place], [address] Nucleated RBC (Bld) [#/Vol] 0 10*3/uL Normal 0-5 [facility] Comment on above: Performed By: #### L 500.4050, L501.9985, L500.4100, L100.0100, L501.5200, L501.9910 #### [facility] [address] [place], [address] Platelet mean volume (Bld) [Entitic vol] 10.1 fL Normal 6.2-12.0 [facility] Comment on above: Performed By: #### L 500.4050, L501.9985, L500.4100, L100.0100, L501.5200, L501.9910 #### [facility] [address] [place], [address] Platelets (Bld) [#/Vol] 281 10*3/uL Normal 150-450 [facility] Comment on above: Performed By: #### L 500.4050, L501.9985, L500.4100, L100.0100, L501.5200, L501.9910 #### [facility] [address] [place], [address] RBC (Bld) [#/Vol] 5.52 10*6/uL Normal 4.6-6.2 [facility] Comment on above: Performed By: #### L 500.4050, L501.9985, L500.4100, L100.0100, L501.5200, L501.9910 #### [facility] [address] [place], [address] RDW SD 36.6 fl Normal 35.1-43.9 [facility] Comment on above: Performed By: #### L 500.4050, L501.9985, L500.4100, L100.0100, L501.5200, L501.9910 #### [facility] [address] [place], [address] WBC (Bld) [#/Vol] 10.4 10*3/uL Normal 4.4-11.0 [facility] Comment on above: Performed By: #### L 500.4050, L501.9985, L500.4100, L100.0100, L501.5200, L501.9910 #### [facility] [address] [place], [address] Comprehensive Metabolic Prof [facility] 05-24-2025 Albumin [Mass/Vol] 4.7 g/dL Normal 3.4-4.8 [facility] Comment on above: Performed By: #### L 500.4050, L501.9985, L500.4100, L100.0100, L501.5200, L501.9910 #### [facility] [address] [place], [address] Albumin/Globulin [Mass ratio] 1.7 {ratio} Normal 0.9-2.4 [facility] Comment on above: Performed By: #### L 500.4050, L501.9985, L500.4100, L100.0100, L501.5200, L501.9910 #### [facility] [address] [place], [address] ALK PHOS 84 U/L Normal 40-129 [facility] Comment on above: Performed By: #### L 500.4050, L501.9985, L500.4100, L100.0100, L501.5200, L501.9910 #### [facility] [address] [place], [address] ALT [Catalytic activity/Vol] 84 U/L High <=46 [facility] Comment on above: Performed By: #### L 500.4050, L501.9985, L500.4100, L100.0100, L501.5200, L501.9910 #### [facility] [address] [place], [address] AST [Catalytic activity/Vol] 44 U/L High <=37 [facility] Comment on above: Performed By: #### L 500.4050, L501.9985, L500.4100, L100.0100, L501.5200, L501.9910 #### [facility] [address] [place], [address] Bilirubin [Mass/Vol] 0.58 mg/dL Normal 0.00-1.30 [facility] Comment on above: Performed By: #### L 500.4050, L501.9985, L500.4100, L100.0100, L501.5200, L501.9910 #### [facility] [address] [place], [address] BUN/CRE 29.8 RATIO High 10-20 [facility] Comment on above: Performed By: #### L 500.4050, L501.9985, L500.4100, L100.0100, L501.5200, L501.9910 #### [facility] [address] [place], [address] Calcium [Mass/Vol] 9.9 mg/dL Normal 7.6-11.0 [facility] Comment on above: Performed By: #### L 500.4050, L501.9985, L500.4100, L100.0100, L501.5200, L501.9910 #### [facility] [address] [place], [address] Chloride [Moles/Vol] 97 mmol/L Low 98-108 [facility] Comment on above: Performed By: #### L 500.4050, L501.9985, L500.4100, L100.0100, L501.5200, L501.9910 #### [facility] [address] [place], [address] CO2 [Moles/Vol] 23.5 mmol/L Normal 21.0-32.0 [facility] Comment on above: Performed By: #### L 500.4050, L501.9985, L500.4100, L100.0100, L501.5200, L501.9910 #### [facility] [address] [place], [address] Creatinine [Mass/Vol] 0.97 mg/dL Normal 0.70-1.20 [facility] Comment on above: Performed By: #### L 500.4050, L501.9985, L500.4100, L100.0100, L501.5200, L501.9910 #### [facility] [address] [place], [address] GAP 14 Normal 5-15 [facility] Comment on above: Performed By: #### L 500.4050, L501.9985, L500.4100, L100.0100, L501.5200, L501.9910 #### [facility] [address] [place], [address] GFR/1.73 sq M.predicted among non-blacks MDRD (S/P/Bld) [Vol rate/Area] 89 mL/min/{1.73_m2} Normal >60 [facility] Comment on above: Result Comment: mL/m in/1.73m2 CKD-EPI Creatinine Equation (2020) Performed By: #### L 500.4050, L501.9985, L500.4100, L100.0100, L501.5200, L501.9910 #### [facility] [address] [place], [address] Globulin (S) [Mass/Vol] 2.8 g/dL Normal 2.2-4.2 [facility] Comment on above: Performed By: #### L 500.4050, L501.9985, L500.4100, L100.0100, L501.5200, L501.9910 #### [facility] [address] [place], [address] Glucose [Mass/Vol] 243 mg/dL High 70-99 [facility] Comment on above: Performed By: #### L 500.4050, L501.9985, L500.4100, L100.0100, L501.5200, L501.9910 #### [facility] [address] [place], [address] Potassium [Moles/Vol] 4.0 mmol/L Normal 3.3-5.1 [facility] Comment on above: Performed By: #### L 500.4050, L501.9985, L500.4100, L100.0100, L501.5200, L501.9910 #### [facility] [address] [place], [address] Sodium [Moles/Vol] 135 mmol/L Normal 133-145 [facility] Comment on above: Performed By: #### L 500.4050, L501.9985, L500.4100, L100.0100, L501.5200, L501.9910 #### [facility] [address] [place], [address] T PROT 7.5 g/dL Normal 5.9-8.4 [facility] Comment on above: Performed By: #### L 500.4050, L501.9985, L500.4100, L100.0100, L501.5200, L501.9910 #### [facility] [address] [place], [address] Urea nitrogen [Mass/Vol] 29 mg/dL High 4-19 [facility] Comment on above: Performed By: #### L 500.4050, L501.9985, L500.4100, L100.0100, L501.5200, L501.9910 #### [facility] [address] [place], [address] L501.4021on 05-24-2025 Trop T High Sen 23 ng/L High <=22 [facility] Comment on above: Performed By: #### L 500.4050, L501.9985, L500.4100, L100.0100, L501.5200, L501.9910 #### [facility] [address] [place], [address] Lipid Profileon 05-24-2025 CHOL:HDL 2.89 Normal [facility] Comment on above: Performed By: #### L 500.4050, L501.9985, L500.4100, L100.0100, L501.5200, L501.9910 #### [facility] [address] [place], [address] Cholesterol [Mass/Vol] 115 mg/dL Normal <=200 [facility] Comment on above: Result Comment: Chol esterol level, Desirable <200 mg/dL Borderline high cholesterol 200-239 mg/dL High cholesterol >=240 mg/dL Recommendations of the NCEP Adult Treatment Panel for the following risk-cutoff thresholds for the [place] population. Performed By: #### L 500.4050, L501.9985, L500.4100, L100.0100, L501.5200, L501.9910 #### [facility] [address] [place], [address] Cholesterol in HDL [Mass/Vol] 40 mg/dL Normal [facility] Comment on above: Result Comment: Rosa onal Cholesterol Education Program (NCEP) guidelines: <40 mg/dL: Low HDL-cholesterol (major risk factor for CHD) >= 60 mg/dL: High HDL-cholesterol (negative risk factor for CHD) HDL-cholesterol is affected by a number of factors, e.g. smoking, exercise, hormones, sex and age. Performed By: #### L 500.4050, L501.9985, L500.4100, L100.0100, L501.5200, L501.9910 #### [facility] [address] [place], [address] Cholesterol in LDL [Mass/Vol] 47 mg/dL Normal [facility] Comment on above: Result Comment: Bord emtibe=927-705 mg/dL Higher Rxwe=285 mg/dL or greater Shafer Equation 2020 for LDL-C Performed By: #### L 500.4050, L501.9985, L500.4100, L100.0100, L501.5200, L501.9910 #### [facility] [address] [place], [address] Cholesterol in VLDL [Mass/Vol] 34 mg/dL Normal 5-40 [facility] Comment on above: Performed By: #### L 500.4050, L501.9985, L500.4100, L100.0100, L501.5200, L501.9910 #### [facility] [address] [place], [address] Triglyceride [Mass/Vol] 169 mg/dL Normal [facility] Comment on above: Result Comment: The drugs N-Acetylcysteine and Metamizole may falsely depress this assay. Normal range: <150 mg/dL Borderline High: 150-199 mg/dL High: 200-499 mg/dL Very High: >500 mg/dL Performed By: #### L 500.4050, L501.9985, L500.4100, L100.0100, L501.5200, L501.9910 #### [facility] [address] [place], [place], [id number] PSA,Total- Diagnosticon 05-14 PSA, DIAGNOSTIC 0.33 ng/mL Normal 0.00-4.00 [facility] Comment on above: Result Comment: This test was performed using the [employer] tPSA method. Measured values of a patient??sample can vary depending on the testing procedure used. PSA values determined on patient samples by different testing procedures cannot be used interchangeably. If there is a change in PSA assays while monitoring therapy, sequential testing should be performed to confirm baseline values. Performed By: #### L 500.4050, L501.9985, L500.4100, L100.0100, L501.5200, L501.9910 #### [facility] [address] [place], [place], [address] CBC W/Diff, Automatedon 07-14 Absolute Lymph 2.78 X10 3/uL Normal 0.83-4.51 [facility] Comment on above: Performed By: #### L 500.4050, L501.9985, L500.4100, L100.0100, L501.5200, L501.9910 #### [facility] [address] [place], [address] Absolute Neut 6.0 X10 3/uL Normal 2.0-7.7 [facility] Comment on above: Performed By: #### L 500.4050, L501.9985, L500.4100, L100.0100, L501.5200, L501.9910 #### [facility] [address] [place], [address] Basophils/100 WBC (Bld) 1.0 % Normal 0-1 [facility] Comment on above: Performed By: #### L 500.4050, L501.9985, L500.4100, L100.0100, L501.5200, L501.9910 #### [facility] [address] [place], [address] Eosinophils/100 WBC (Bld) 2.6 % Normal 0-5 [facility] Comment on above: Performed By: #### L 500.4050, L501.9985, L500.4100, L100.0100, L501.5200, L501.9910 #### [facility] [address] [place], [address] Erythrocyte distribution width (RBC) [Ratio] 12.3 % Normal 11.6-14.6 [facility] Comment on above: Performed By: #### L 500.4050, L501.9985, L500.4100, L100.0100, L501.5200, L501.9910 #### [facility] [address] [place], [address] Hematocrit (Bld) [Volume fraction] 46.0 % Normal 40-54 [facility] Comment on above: Performed By: #### L 500.4050, L501.9985, L500.4100, L100.0100, L501.5200, L501.9910 #### [facility] [address] [place], [address] Hemoglobin (Bld) [Mass/Vol] 15.5 g/dL Normal 13.0-16.5 [facility] Comment on above: Performed By: #### L 500.4050, L501.9985, L500.4100, L100.0100, L501.5200, L501.9910 #### [facility] [address] [place], [address] IG% 1.800 High 0.0-0.9 [facility] Comment on above: Result Comment: IG% - Immature Granulocytes (promyelocytes, myelocytes and metamyelocytes) > 1% indicates that a LEFT SHIFT is Present. Performed By: #### L 500.4050, L501.9985, L500.4100, L100.0100, L501.5200, L501.9910 #### [facility] [address] [place], [address] Lymphocytes/100 WBC (Bld) 27.7 % Normal 19-41 [facility] Comment on above: Performed By: #### L 500.4050, L501.9985, L500.4100, L100.0100, L501.5200, L501.9910 #### [facility] [address] [place], [address] MCH (RBC) [Entitic mass] 28.2 pg Normal 27.0-32.0 [facility] Comment on above: Performed By: #### L 500.4050, L501.9985, L500.4100, L100.0100, L501.5200, L501.9910 #### [facility] [address] [place], [address] MCHC (RBC) [Mass/Vol] 33.7 g/dL Normal 32-36 [facility] Comment on above: Performed By: #### L 500.4050, L501.9985, L500.4100, L100.0100, L501.5200, L501.9910 #### [facility] [address] [place], [address] MCV (RBC) [Entitic vol] 83.8 fL Normal 80-94 [facility] Comment on above: Performed By: #### L 500.4050, L501.9985, L500.4100, L100.0100, L501.5200, L501.9910 #### [facility] [address] [place], [address] Monocytes/100 WBC (Bld) 7.7 % Normal 0-10 [facility] Comment on above: Performed By: #### L 500.4050, L501.9985, L500.4100, L100.0100, L501.5200, L501.9910 #### [facility] [address] [place], [address] Neutrophils/100 WBC (Bld) 59.2 % Normal 47-70 [facility] Comment on above: Performed By: #### L 500.4050, L501.9985, L500.4100, L100.0100, L501.5200, L501.9910 #### [facility] [address] [place], [address] Nucleated RBC (Bld) [#/Vol] 0 10*3/uL Normal 0-5 [facility] Comment on above: Performed By: #### L 500.4050, L501.9985, L500.4100, L100.0100, L501.5200, L501.9910 #### [facility] [address] [place], [address] Platelet mean volume (Bld) [Entitic vol] 10.3 fL Normal 6.2-12.0 [facility] Comment on above: Performed By: #### L 500.4050, L501.9985, L500.4100, L100.0100, L501.5200, L501.9910 #### [facility] [address] [place], [address] Platelets (Bld) [#/Vol] 238 10*3/uL Normal 150-450 [facility] Comment on above: Performed By: #### L 500.4050, L501.9985, L500.4100, L100.0100, L501.5200, L501.9910 #### [facility] [address] [place], [address] RBC (Bld) [#/Vol] 5.49 10*6/uL Normal 4.6-6.2 [facility] Comment on above: Performed By: #### L 500.4050, L501.9985, L500.4100, L100.0100, L501.5200, L501.9910 #### [facility] [address] [place], [address] RDW SD 37.3 fl Normal 35.1-43.9 [facility] Comment on above: Performed By: #### L 500.4050, L501.9985, L500.4100, L100.0100, L501.5200, L501.9910 #### [facility] [address] [place], [address] WBC (Bld) [#/Vol] 10.1 10*3/uL Normal 4.4-11.0 [facility] Comment on above: Performed By: #### L 500.4050, L501.9985, L500.4100, L100.0100, L501.5200, L501.9910 #### [facility] [address] [place], [address] Comprehensive Metabolic Prof idon 07-27-2024 Albumin [Mass/Vol] 4.1 g/dL Normal 3.2-5.0 [facility] Comment on above: Performed By: #### L 500.4050, L501.9985, L500.4100, L100.0100, L501.5200, L501.9910 #### [facility] [address] [place], [address] Albumin/Globulin [Mass ratio] 1.2 {ratio} Normal 0.9-2.4 [facility] Comment on above: Performed By: #### L 500.4050, L501.9985, L500.4100, L100.0100, L501.5200, L501.9910 #### [facility] [address] [place], [address] ALK P 84 U/L Normal 45-117 [facility] Comment on above: Performed By: #### L 500.4050, L501.9985, L500.4100, L100.0100, L501.5200, L501.9910 #### [facility] [address] [place], [address] ALT [Catalytic activity/Vol] 40 U/L Normal 16-61 [facility] Comment on above: Performed By: #### L 500.4050, L501.9985, L500.4100, L100.0100, L501.5200, L501.9910 #### [facility] [address] [place], [address] AST [Catalytic activity/Vol] 23 U/L Normal 15-37 [facility] Comment on above: Performed By: #### L 500.4050, L501.9985, L500.4100, L100.0100, L501.5200, L501.9910 #### [facility] [address] [place], [address] Bilirubin [Mass/Vol] 0.40 mg/dL Normal 0.20-1.00 [facility] Comment on above: Result Comment: For patients on eltrombopag therapy, use of Dimension [place] TBIL is not recommended. Performed By: #### L 500.4050, L501.9985, L500.4100, L100.0100, L501.5200, L501.9910 #### [facility] [address] [place], [address] BUN/CRE 31.8 RATIO High 10-20 [facility] Comment on above: Performed By: #### L 500.4050, L501.9985, L500.4100, L100.0100, L501.5200, L501.9910 #### [facility] [address] [place], [address] CA,Total 9.6 mg/dL Normal 8.5-10.1 [facility] Comment on above: Performed By: #### L 500.4050, L501.9985, L500.4100, L100.0100, L501.5200, L501.9910 #### [facility] [address] [place], [address] Chloride [Moles/Vol] 102 mmol/L Normal 98-107 [facility] Comment on above: Performed By: #### L 500.4050, L501.9985, L500.4100, L100.0100, L501.5200, L501.9910 #### [facility] [address] [place], [address] CO2 [Moles/Vol] 27.0 mmol/L Normal 21.0-32.0 [facility] Comment on above: Performed By: #### L 500.4050, L501.9985, L500.4100, L100.0100, L501.5200, L501.9910 #### [facility] [address] [place], [address] Creatinine [Mass/Vol] 0.72 mg/dL Normal 0.70-1.30 [facility] Comment on above: Result Comment: The validity of the calculated GFR GFRAA in patients over 70 years has not been determined. Clinical correlation is essential. Performed By: #### L 500.4050, L501.9985, L500.4100, L100.0100, L501.5200, L501.9910 #### [facility] [address] [place], [address] EST GFR - AA 142 mL/min Normal >60 [facility] Comment on above: Result Comment: Afri can [place] GFR Calc Performed By: #### L 500.4050, L501.9985, L500.4100, L100.0100, L501.5200, L501.9910 #### [facility] [address] [place], [address] GAP 8 Normal 5-15 [facility] Comment on above: Performed By: #### L 500.4050, L501.9985, L500.4100, L100.0100, L501.5200, L501.9910 #### [facility] [address] [place], [address] GFR/1.73 sq M.predicted among non-blacks MDRD (S/P/Bld) [Vol rate/Area] 117 mL/min/{1.73_m2} Normal >60 [facility] Comment on above: Result Comment: Non- GFR Calc Performed By: #### L 500.4050, L501.9985, L500.4100, L100.0100, L501.5200, L501.9910 #### [facility] [address] [place], [address] Globulin (S) [Mass/Vol] 3.4 g/dL Normal 2.2-4.2 [facility] Comment on above: Performed By: #### L 500.4050, L501.9985, L500.4100, L100.0100, L501.5200, L501.9910 #### [facility] [address] [place], [address] Glucose [Mass/Vol] 195 mg/dL High 74-106 [facility] Comment on above: Result Comment: Fast ing Glucose result greater than or equal to 126 mg/dL suggests DIABETES MELLITUS per A.D.A. criteria. Performed By: #### L 500.4050, L501.9985, L500.4100, L100.0100, L501.5200, L501.9910 #### [facility] [address] [place], [address] Potassium [Moles/Vol] 4.3 mmol/L Normal 3.5-5.1 [facility] Comment on above: Performed By: #### L 500.4050, L501.9985, L500.4100, L100.0100, L501.5200, L501.9910 #### [facility] [address] [place], [address] Sodium [Moles/Vol] 137 mmol/L Normal 136-145 [facility] Comment on above: Performed By: #### L 500.4050, L501.9985, L500.4100, L100.0100, L501.5200, L501.9910 #### [facility] [address] [place], [address] T PROT 7.5 g/dL Normal 6.4-8.2 [facility] Comment on above: Performed By: #### L 500.4050, L501.9985, L500.4100, L100.0100, L501.5200, L501.9910 #### [facility] [address] [place], [address] Urea nitrogen [Mass/Vol] 23 mg/dL High 7-18 [facility] Comment on above: Performed By: #### L 500.4050, L501.9985, L500.4100, L100.0100, L501.5200, L501.9910 #### [facility] [address] [place], [address] Hemoglobin A1con 07-27-2024 HbA1c (Bld) [Mass fraction] 12.7 % High 3.8-5.6 [facility] Comment on above: Result Comment: Norm al < 5.7 % Prediabetic 5.7 - 6.4 % Diabetic >or= 6.5 % Please note range changes. Performed By: #### L 500.4050, L501.9985, L500.4100, L100.0100, L501.5200, L501.9910 #### [facility] [address] [place], [address] Lipid Profileon 07-27-2024 Cholesterol [Mass/Vol] 129 mg/dL Normal 200 [facility] Comment on above: Result Comment: <200 mg/dL Desirable 200-240 mg/dL Borderline >240 mg/dL High Risk Performed By: #### L 500.4050, L501.9985, L500.4100, L100.0100, L501.5200, L501.9910 #### [facility] [address] [place], [address] Cholesterol in HDL [Mass/Vol] 37 mg/dL Low [facility] Comment on above: Result Comment: The drugs N-Acetylcysteine and Metamizole may falsely depress this assay. Reference Range HDL <40 mg/dL Low HDL Cholesterol HDL >or= 60 mg/dL High HDL Cholesterol Performed By: #### L 500.4050, L501.9985, L500.4100, L100.0100, L501.5200, L501.9910 #### [facility] [address] [place], [address] LDL TNP Normal 0-130 [facility] Comment on above: Performed By: #### L 500.4050, L501.9985, L500.4100, L100.0100, L501.5200, L501.9910 #### [facility] [address] [place], [address] Triglyceride [Mass/Vol] 461 mg/dL High [facility] Comment on above: Result Comment: The drugs N-Acetylcysteine and Metamizole may falsely depress this assay. TRIGLYCERIDE IS GREATER THAN 400 mg/dL. LDL RESULT IS INVALID AND WILL NOT BE REPORTED. Serum Triglycerides Reference Interval Normal <150 mg/dL Borderline high 150 - 199 mg/dL High 200 - 499 mg/dL Very High > or = 500 mg/dL Performed By: #### L 500.4050, L501.9985, L500.4100, L100.0100, L501.5200, L501.9910 #### [facility] [address] [place], [address] VLDL TNP Normal 5-40 [facility] Comment on above: Performed By: #### L 500.4050, [id number], L500.4100, L100.0100, L501.5200, L501.9910 #### [facility] [address] [place], [address] Magnesiumon 07-27-2024 Magnesium [Mass/Vol] 2.1 mg/dL Normal 1.6-2.6 [facility] Comment on above: Performed By: #### L 500.4050, [id number], L500.4100, L100.0100, L501.5200, L501.9910 #### [facility] [address] [place], [address] PSA,Total - Annual Screenon 07-27-2024 PSA,TOT SCREEN 0.36 ng/mL Normal 0.00-4.00 [facility] Comment on above: Result Comment: This test was performed using the TPSA assay method for the [employer] chemistry system. Values obtained with different assay methods cannot be used interchangably. When changing PSA assays in the course of monitoring a patient, additional sequential testing should be carried out to confirm baseline values. Performed By: #### L 500.4050, L501.9985, L500.4100, L100.0100, L501.5200, L501.9910 #### [facility] [address] [place], [address] Absolute lymphocyte countOrd ered By: Berenice Pittman on 07-23-2023 Lymphocytes Auto (Unsp spec) [#/Vol] 2.71 10*3/uL 0.83-4.51 [facility] Basophil percentageOrdered B y: Berenice Pittman on 07-23-2023 Basophils/100 WBC (Bld) 0.8 % 0-1 [facility] Bilirubin [Mass/Vol] 0.60 mg/dL 0.20-1.00 [facility] Comment on above: For patients on eltr ombopag therapy, use of Dimension [place] TBIL is not recommended. Chloride [Moles/Vol] 107 mmol/L 98-107 [facility] Cholesterol [Mass/Vol] 130 mg/dL <200 [facility] Comment on above: <200 mg/dL Desirable 200-240 mg/dL Borderline >240 mg/dL High Risk Eosinophils/100 WBC (Bld) 3.8 % 0-5 [facility] Glucose [Mass/Vol] 180 mg/dL 74-106 [facility] Comment on above: Fasting Glucose resu lt greater than or equal to 126 mg/dL suggests DIABETES MELLITUS per A.D.A. criteria. Neutrophils (Bld) [#/Vol] 5.9 10*3/uL 2.0-7.7 [facility] Neutrophils/100 WBC (Bld) 59.3 % 47-70 [facility] Potassium [Moles/Vol] 3.9 mmol/L 3.5-5.1 [facility] Protein [Mass/Vol] 8.0 g/dL 6.4-8.2 [facility] Sodium [Moles/Vol] 137 mmol/L 136-145 [facility] Triglyceride [Mass/Vol] 224 mg/dL <199 [facility] Comment on above: The drugs N-Acetylcy steine and Metamizole may falsely depress this assay.Serum Triglycerides Reference Interval Normal <150 mg/dL Borderline high 150 - 199 mg/dL High 200 - 499 mg/dL Very High > or = 500 mg/dL WBC (Bld) [#/Vol] 9.9 10*3/uL 4.4-11.0 [facility] Blood erythrocytes count (nu mber/volume)Ordered By: Berenice Pittman on 07-23-2023 RBC (Bld) [#/Vol] 5.94 10*6/uL 4.6-6.2 [facility] Blood hemoglobin measurement (mass/volume)Ordered By: Berenice Pittman on 07-23-2023 Hemoglobin (Bld) [Mass/Vol] 16.9 g/dL 13.0-16.5 [facility] Blood lymphocytes/100 leukoc ytesOrdered By: Berenice Pittman on 07-23-2023 Lymphocytes/100 WBC (Bld) 27.5 % 19-41 [facility] Blood monocytes/100 leukocyt esOrdered By: Berenice Pittman on 07-23-2023 Monocytes/100 WBC (Bld) 7.2 % 0-10 [facility] Blood platelet mean volumeOr dered By: Berenice Pittman on 07-23-2023 Platelet mean volume (Bld) [Entitic vol] 9.9 fL 6.2-12.0 [facility] Determination of erythrocyte mean corpuscular volume (MCV)Ordered By: Berenice Pittman on 07-23-2023 MCV (RBC) [Entitic vol] 84.5 fL 80-94 [facility] Hematocrit Auto (Bld) [Volum e fraction]Ordered By: Berenice Pittman on 07-23-2023 Hematocrit (Bld) [Volume fraction] 50.2 % 40-54 [facility] - Chemistry and C hemistry - challengeOrdered By: Berenice Pittman on 07-23-2023 ALP [Catalytic activity/Vol] 90 U/L 45-117 [facility] ALT [Catalytic activity/Vol] 82 U/L 16-61 [facility] CO2 [Moles/Vol] 23.0 mmol/L 21.0-32.0 [facility] Globulin (S) [Mass/Vol] 3.5 g/dL 2.2-4.2 [facility] Urea nitrogen/Creatinine [Mass ratio] 18.9 mg/mg 10-20 [facility] - Hematology and Cell countsOrdered By: Berenice Pittman on 07-23-2023 Erythrocyte distribution width (RBC) [Entitic vol] 37.4 fL 35.1-43.9 [facility] Erythrocyte distribution width (RBC) [Ratio] 12.4 % 11.6-14.6 [facility] Immature granulocytes/100 WBC (Bld) 1.400 % 0.0-0.9 [facility] Comment on above: IG% - Immature Granu locytes (promyelocytes, myelocytes and metamyelocytes) > 1% indicates that a LEFT SHIFT is Present. MCH (RBC) [Entitic mass] 28.5 pg 27.0-32.0 [facility] Nucleated RBC/100 WBC (Bld) [Ratio] 0 % 0-5 [facility] - Hematology and Cell countson 07-23-2023 HbA1c (Bld) [Mass fraction] 12.2 % 4.2-6.3 [facility] MCHC Auto (RBC) [Mass/Vol]Or dered By: Berenice Pittman on 07-23-2023 MCHC (RBC) [Mass/Vol] 33.7 g/dL 32-36 [facility] No Panel InformationOrdered By: Berenice Pittman on 07-23-2023 Estimated GFR (MDRD) Amer 139 mL/min >60 [facility] Comment on above: GFR Calc Estimated GFR (MDRD) Non-Af Amer 115 mL/min >60 [facility] Comment on above: Non- GFR Calc Prostate Specific Antigen Screen 0.40 ng/mL 0.00-4.00 [facility] Comment on above: This test was perfor med using the TPSA assay method for the[facility] chemistry system. Values obtained with differentassay methods cannot be used interchangably.When changing PSA assays in the course of monitoring apatient, additional sequential testing should be carriedout to confirm baseline values. Platelets bldOrdered By: Geovanny Pittman on 07-23-2023 Platelets (Bld) [#/Vol] 245 10*3/uL 150-450 [facility] Serum or plasma albumin lee urement (mass/volume)Ordered By: Berenice Pittman on 07-23-2023 Albumin [Mass/Vol] 4.5 g/dL 3.2-5.0 [facility] Serum or plasma albumin/glob ulin mass ratioOrdered By: Berenice Pittman on 07-23-2023 Albumin/Globulin [Mass ratio] 1.3 {ratio} 0.9-2.4 [facility] Serum or plasma calcium lee urement (mass/volume)Ordered By: Berenice Pittman on 07-23-2023 Calcium [Mass/Vol] 9.9 mg/dL 8.5-10.1 [facility] Serum or plasma cholesterol in HDL measurement (mass/volume)Ordered By: Berenice Pittman on 07-23-2023 Cholesterol in HDL [Mass/Vol] 46 mg/dL >40 [facility] Comment on above: The drugs N-Acetylcy steine and Metamizole may falsely depress this assay. Reference Range HDL <40 mg/dL Low HDL Cholesterol HDL >or= 60 mg/dL High HDL Cholesterol Serum or plasma cholesterol in VLDL measurement (mass/volume)Ordered By: Berenice Pitmtan on 07-23-2023 Cholesterol in VLDL [Mass/Vol] 45 mg/dL 5-40 [facility] Serum or plasma creatinine m easurement (mass/volume)Ordered By: Berenice Pittman on 07-23-2023 Creatinine [Mass/Vol] 0.74 mg/dL 0.70-1.30 [facility] Comment on above: The validity of the calculated GFR & GFRAA in patients over 70 years has not been determined. Clinical correlation is essential. Serum or plasma low density lipoprotein (LDL) cholesterol measurement (mass/volume)Ordered By: Berenice Pittman on 07-23-2023 Cholesterol in LDL [Mass/Vol] 39 mg/dL 0-130 [facility] Serum or plasma urea nitroge n measurement (mass/volume)Ordered By: Berenice Pittman on 07-23-2023 Urea nitrogen [Mass/Vol] 14 mg/dL 7-18 [facility] Thin prep Papanicolaou smear with manual screeningOrdered By: Berenice Pittman on 07-23-2023 Thin prep Papanicolaou smear with manual screening 37 U/L 1537 [facility] Thin prep Papanicolaou smear with manual screening 7 - [facility] Absolute lymphocyte counton 06-27-2022 Lymphocytes Auto (Unsp spec) [#/Vol] 1.56 10*3/uL 0.83-4.51 [facility] Work Phone: Basophil percentageon 2021 Basophils/100 WBC (Bld) 0.8 % 0-1 [facility] Work Phone: Bilirubin [Mass/Vol] 0.60 mg/dL 0.20-1.00 [facility] Work Phone: Comment on above: For patients on eltr ombopag therapy, use of Dim[employer] [place] TBIL is not recommended. Chloride [Moles/Vol] 100 mmol/L 98-107 [facility] Work Phone: Cholesterol [Mass/Vol] 121 mg/dL <200 [facility] Work Phone: Comment on above: <200 mg/dL Desirable 200-240 mg/dL Borderline >240 mg/dL High Risk Eosinophils/100 WBC (Bld) 3.8 % 0-5 [facility] Work Phone: Glucose [Mass/Vol] 316 mg/dL 74-106 [facility] Work Phone: Comment on above: Glucose result great er than or equal to 200 mg/dLsuggests DIABETES MELLITUS per A.D.A. criteria. Neutrophils (Bld) [#/Vol] 3.5 10*3/uL 2.0-7.7 [facility] Work Phone: Neutrophils/100 WBC (Bld) 57.5 % 47-70 [facility] Work Phone: Potassium [Moles/Vol] 4.3 mmol/L 3.5-5.1 [facility] Work Phone: Protein [Mass/Vol] 7.8 g/dL 6.4-8.2 [facility] Work Phone: Sodium [Moles/Vol] 133 mmol/L 136-145 [facility] Work Phone: Triglyceride [Mass/Vol] 365 mg/dL <199 [facility] Work Phone: Comment on above: The drugs N-Acetylcy steine and Metamizole may falsely depress this assay.Serum Triglycerides Reference Interval Normal <150 mg/dL Borderline high 150 - 199 mg/dL High 200 - 499 mg/dL Very High > or = 500 mg/dL WBC (Bld) [#/Vol] 6.1 10*3/uL 4.4-11.0 [facility] Work Phone: Blood erythrocytes count (nu mber/volume)on 06-27-2022 RBC (Bld) [#/Vol] 5.55 10*6/uL 4.6-6.2 [facility] Work Phone: Blood hemoglobin measurement (mass/volume)on 06-27-2022 Hemoglobin (Bld) [Mass/Vol] 15.7 g/dL 13.0-16.5 [facility] Work Phone: Blood lymphocytes/100 leukoc yteson 06-27-2022 Lymphocytes/100 WBC (Bld) 25.6 % 19-41 [facility] Work Phone: Blood monocytes/100 leukocyt eson 06-27-2022 Monocytes/100 WBC (Bld) 10.3 % 0-10 [facility] Work Phone: Blood platelet mean volumeon 06-27-2022 Platelet mean volume (Bld) [Entitic vol] 9.9 fL 6.2-12.0 [facility] Work Phone: Determination of erythrocyte mean corpuscular volume (MCV)on 06-27-2022 MCV (RBC) [Entitic vol] 83.2 fL 80-94 [facility] Work Phone: Hematocrit Auto (Bld) [Volum e fraction]on 06-27-2022 Hematocrit (Bld) [Volume fraction] 46.2 % 40-54 [facility] Work Phone: Laboratory - Chemistry and C hemistry - challengeon 06-27-2022 ALP [Catalytic activity/Vol] 92 U/L 45-117 [facility] Work Phone: ALT [Catalytic activity/Vol] 91 U/L 16-61 [facility] Work Phone: CO2 [Moles/Vol] 28.0 mmol/L 21.0-32.0 [facility] Work Phone: Globulin (S) [Mass/Vol] 3.6 g/dL 2.2-4.2 [facility] Work Phone: Urea nitrogen/Creatinine [Mass ratio] 19.4 mg/mg 10-20 [facility] Work Phone: Laboratory - Hematology and Cell countson 06-27-2022 Erythrocyte distribution width (RBC) [Entitic vol] 39.0 fL 35.1-43.9 [facility] Work Phone: Erythrocyte distribution width (RBC) [Ratio] 12.8 % 11.6-14.6 [facility] Work Phone: Immature granulocytes/100 WBC (Bld) 2.000 % 0.0-0.9 [facility] Work Phone: Comment on above: IG% - Immature Granu locytes (promyelocytes, myelocytes and metamyelocytes) > 1% indicates that a LEFT SHIFT is Present. MCH (RBC) [Entitic mass] 28.3 pg 27.0-32.0 [facility] Work Phone: Nucleated RBC/100 WBC (Bld) [Ratio] 0 % 0-5 [facility] Work Phone: MCHC Auto (RBC) [Mass/Vol]on 06-27-2022 MCHC (RBC) [Mass/Vol] 34.0 g/dL 32-36 [facility] Work Phone: No Panel Informationon 06-27 Estimated GFR (MDRD) Amer 115 mL/min >60 [facility] Work Phone: Comment on above: GFR Calc Estimated GFR (MDRD) Non-Af Amer 95 mL/min >60 [facility] Work Phone: Comment on above: Non- GFR Calc Prostate Specific Antigen Screen 0.43 ng/mL 0.00-4.00 [facility] Work Phone: Comment on above: This test was perfor med using the TPSA assay method for the[employer] chemistry system. Values obtained with differentassay methods cannot be used interchangably.When changing PSA assays in the course of monitoring apatient, additional sequential testing should be carriedout to confirm baseline values. Platelets bldon 06-27-2022 Platelets (Bld) [#/Vol] 203 10*3/uL 150-450 [facility] Work Phone: Serum or plasma albumin lee urement (mass/volume)on 06-27-2022 Albumin [Mass/Vol] 4.2 g/dL 3.2-5.0 [facility] Work Phone: Serum or plasma albumin/glob ulin mass ratioon 06-27-2022 Albumin/Globulin [Mass ratio] 1.2 {ratio} 0.9-2.4 [facility] Work Phone: Serum or plasma calcium lee urement (mass/volume)on 06-27-2022 Calcium [Mass/Vol] 9.7 mg/dL 8.5-10.1 [facility] Work Phone: Serum or plasma cholesterol in HDL measurement (mass/volume)on 06-27-2022 Cholesterol in HDL [Mass/Vol] 39 mg/dL >40 [facility] Work Phone: Comment on above: The drugs N-Acetylcy steine and Metamizole may falsely depress this assay. Reference Range HDL <40 mg/dL Low HDL Cholesterol HDL >or= 60 mg/dL High HDL Cholesterol Serum or plasma cholesterol in VLDL measurement (mass/volume)on 06-27-2022 Cholesterol in VLDL [Mass/Vol] 73 mg/dL 5-40 [facility] Work Phone: Serum or plasma creatinine m easurement (mass/volume)on 06-27-2022 Creatinine [Mass/Vol] 0.88 mg/dL 0.70-1.30 [facility] Work Phone: Comment on above: The validity of the calculated GFR & GFRAA in patients over 70 years has not been determined. Clinical correlation is essential. Serum or plasma low density lipoprotein (LDL) cholesterol measurement (mass/volume)on 06-27-2022 Cholesterol in LDL [Mass/Vol] 9 mg/dL 0-130 [facility] Work Phone: Serum or plasma urea nitroge n measurement (mass/volume)on 06-27-2022 Urea nitrogen [Mass/Vol] 17 mg/dL 7-18 [facility] Work Phone: Thin prep Papanicolaou smear with manual screeningon 06-27-2022 Thin prep Papanicolaou smear with manual screening 39 U/L 15-37 [facility] Work Phone: Thin prep Papanicolaou smear with manual screening 11 15-15 [facility] Work Phone: Whole blood hemoglobin A1c/t otal hemoglobin ratio (mass fraction)on 06-27-2022 HbA1c (Bld) [Mass fraction] 11.8 % 3.8-5.6 [facility] Work Phone: Comment on above: Normal < 5.7 % Predi abetic 5.7 - 6.4 % Diabetic >or= 6.5 % Please note range changes. Interpretation of Borrelia b urgdorferi antibody assayon 2022 B. burgdorferi Ab (S) [Interp] REF LAB [facility] Work Phone: Thin prep Papanicolaou smear with manual screeningon 2022 Thin prep Papanicolaou smear with manual screening Negative Negative [facility] Work Phone: Comment on above: Lyme Antibody Negati veNo laboratory evidence of infection with B. burgdorferi(Lyme disease). Negative results may occur in patientsrecently infected (greater than or equal to 14 days) withB. burgdorferi. If recent infection is suspected, repeattesting on a new sample collected in 7 to 14 days isrecommended.Performed at: [address] [id number] Director: Jabier Ashford PhD, Phone: [phone] Basophil percentageon 2021 Bilirubin [Mass/Vol] 0.40 mg/dL 0.20-1.00 [facility] Work Phone: Comment on above: For patients on eltr ombopag therapy, use of Dim[place] TBIL is not recommended. Chloride [Moles/Vol] 104 mmol/L 98-107 [facility] Work Phone: Glucose [Mass/Vol] 363 mg/dL 74-106 [facility] Work Phone: Comment on above: Glucose result great er than or equal to 200 mg/dLsuggests DIABETES MELLITUS per A.D.A. criteria. Potassium [Moles/Vol] 4.0 mmol/L 3.5-5.1 [facility] Work Phone: Protein [Mass/Vol] 7.1 g/dL 6.4-8.2 [facility] Work Phone: Sodium [Moles/Vol] 136 mmol/L 136-145 [facility] Work Phone: Laboratory - Chemistry and C hemistry - challengeon 01-07-2022 ALP [Catalytic activity/Vol] 90 U/L 45-117 [facility] Work Phone: ALT [Catalytic activity/Vol] 57 U/L 16-61 [facility] Work Phone: CO2 [Moles/Vol] 25.0 mmol/L 21.0-32.0 [facility] Work Phone: Globulin (S) [Mass/Vol] 3.4 g/dL 2.2-4.2 [facility] Work Phone: Urea nitrogen/Creatinine [Mass ratio] 21.7 mg/mg 10-20 [facility] Work Phone: No Panel Informationon 01-07 Estimated GFR (MDRD) Amer 92 mL/min >60 [facility] Work Phone: Comment on above: GFR Calc Estimated GFR (MDRD) Non-Af Amer 76 mL/min >60 [facility] Work Phone: Comment on above: Non- GFR Calc Serum or plasma albumin lee urement (mass/volume)on 01-07-2022 Albumin [Mass/Vol] 3.7 g/dL 3.2-5.0 [facility] Work Phone: Serum or plasma albumin/glob ulin mass ratioon 01-07-2022 Albumin/Globulin [Mass ratio] 1.1 {ratio} 0.9-2.4 [facility] Work Phone: Serum or plasma calcium lee urement (mass/volume)on 01-07-2022 Calcium [Mass/Vol] 8.7 mg/dL 8.5-10.1 [facility] Work Phone: Serum or plasma creatinine m easurement (mass/volume)on 01-07-2022 Creatinine [Mass/Vol] 1.06 mg/dL 0.70-1.30 [facility] Work Phone: Comment on above: The validity of the calculated GFR & GFRAA in patients over 70 years has not been determined. Clinical correlation is essential. Serum or plasma urea nitroge n measurement (mass/volume)on 01-07-2022 Urea nitrogen [Mass/Vol] 23 mg/dL 7-18 [facility] Work Phone: Thin prep Papanicolaou smear with manual screeningon 01-07-2022 Thin prep Papanicolaou smear with manual screening 28 U/L 15-37 [facility] Work Phone: Thin prep Papanicolaou smear with manual screening 7 5-15 [facility] Work Phone: Whole blood hemoglobin A1c/t otal hemoglobin ratio (mass fraction)on 01-07-2022 HbA1c (Bld) [Mass fraction] 11.5 % 3.8-5.6 [facility] Work Phone: Comment on above: Normal < 5.7 % Predi abetic 5.7 - 6.4 % Diabetic >or= 6.5 % Please note range changes. Bacteria identified Cx Nom ( Wound) Wound Culture Staphylococcus aureus [facility] Work Phone: Gram stain for investigation of transfusion reaction Microscopic observation Gram stain Nom (Unsp spec) [facility] Work Phone: Vital Signs Date Time Vital Sign Value Performing Clinician Faci lity 07-23-2023 19:46-0500 Body height 180.34 cm [facility] 07-23-2023 19:46-0500 Body mass index (BMI) [Ratio] 28.5 kg/m2 [facility] 07-23-2023 19:46-0500 Body temperature 97.5 [degF] [facility] 07-23-2023 19:46-0500 Body weight 92.98 kg [facility] 07-23-2023 19:46-0500 Diastolic blood pressure 70 mm[Hg] [facility] 07-23-2023 19:46-0500 Heart rate 88 /min [facility] 07-23-2023 19:46-0500 Respiratory rate 18 /min [facility] 07-23-2023 19:46-0500 SaO2% (BldA) [Mass fraction] 96 % [facility] 07-23-2023 19:46-0500 Systolic blood pressure 115 mm[Hg] [facility] 06-27-2022 18:01-0500 Body height 180.34 cm [facility] Work Phone: 06-27-2022 18:01-0500 Body mass index (BMI) [Ratio] 30.2 kg/m2 [facility] Work Phone: 06-27-2022 18:01-0500 Body temperature 97.5 [degF] [facility] Work Phone: 06-27-2022 18:01-0500 Body weight 98.42 kg [facility] Work Phone: 06-27-2022 18:01-0500 Diastolic blood pressure 70 mm[Hg] [facility] Work Phone: 06-27-2022 18:01-0500 Heart rate 92 /min [facility] Work Phone: 06-27-2022 18:01-0500 Respiratory rate 18 /min [facility] Work Phone: 06-27-2022 18:01-0500 SaO2% (BldA) [Mass fraction] 95 % [facility] Work Phone: 06-27-2022 18:01-0500 Systolic blood pressure 110 mm[Hg] [facility] Work Phone: 04-25-2022 19:07-0400 Body mass index (BMI) [Ratio] 30.2 kg/m2 [facility] Work Phone: 04-25-2022 19:07-0400 Body temperature 97.9 [degF] [facility] Work Phone: 04-25-2022 19:07-0400 Body weight 98.42 kg [facility] Work Phone: 04-25-2022 19:07-0400 Diastolic blood pressure 60 mm[Hg] [facility] Work Phone: 04-25-2022 19:07-0400 Heart rate 121 /min [facility] Work Phone: 04-25-2022 19:07-0400 Respiratory rate 18 /min [facility] Work Phone: 04-25-2022 19:07-0400 SaO2% (BldA) [Mass fraction] 96 % [facility] Work Phone: 04-25-2022 19:07-0400 Systolic blood pressure 118 mm[Hg] [facility] Work Phone: 2022 19:05-0400 Body height 180.34 cm [facility] Work Phone: 2022 19:05-0400 Body mass index (BMI) [Ratio] 30.8 kg/m2 [facility] Work Phone: 2022 19:05-0400 Body temperature 97.9 [degF] [facility] Work Phone: 2022 19:05-0400 Body weight 100.24 kg [facility] Work Phone: 2022 19:05-0400 Diastolic blood pressure 70 mm[Hg] [facility] Work Phone: 2022 19:05-0400 Heart rate 94 /min [facility] Work Phone: 2022 19:05-0400 Respiratory rate 18 /min [facility] Work Phone: 2022 19:05-0400 SaO2% (BldA) [Mass fraction] 95 % [facility] Work Phone: 2022 19:05-0400 Systolic blood pressure 122 mm[Hg] [facility] Work Phone: 01-07-2022 18:54-0400 Body mass index (BMI) [Ratio] 30.8 kg/m2 [facility] Work Phone: 01-07-2022 18:54-0400 Body temperature 97.9 [degF] [facility] Work Phone: 01-07-2022 18:54-0400 Body weight 100.24 kg [facility] Work Phone: 01-07-2022 18:54-0400 Diastolic blood pressure 70 mm[Hg] [facility] Work Phone: 01-07-2022 18:54-0400 Heart rate 94 /min [facility] Work Phone: 01-07-2022 18:54-0400 Respiratory rate 18 /min [facility] Work Phone: 01-07-2022 18:54-0400 SaO2% (BldA) [Mass fraction] 95 % [facility] Work Phone: 01-07-2022 18:54-0400 Systolic blood pressure 122 mm[Hg] [facility] Work Phone: Encounters Encounter Date Encounter Type Care Provider Facility Start: 05-25-2025 End: 05-25-2025 Emergency department patient visit Hemal Tucker Facility:[facility] Start: 05-24-2025 End: 05-24-2025 ambulatory Berenice Zain [employer] ATTENDANT Facility:[facility] Start: 07-27-2024 End: 07-27-2024 ambulatory Berenice Zain [employer] ATTENDANT Facility:[facility] Start: 07-23-2023 End: 07-23-2023 ambulatory [facility] Work Phone: Start: 07-23-2023 End: 07-23-2023 Patient encounter procedure [facility] Specimen Work Phone: Start: 06-27-2022 End: 06-27-2022 ambulatory [facility] Work Phone: Start: 06-27-2022 End: 06-27-2022 Patient encounter procedure [facility], Specimen Start: 2022 End: 2022 Patient encounter procedure [facility], Specimen Start: 01-07-2022 End: 01-07-2022 Patient encounter procedure [facility], Specimen Start: 06-22-2021 Patient encounter status [facility] Procedures Date Procedure Procedure Detail Performing Clinician Investigation of transfusion reaction Microbial culture, routine Plan of Treatment Date Care Activity Detail Author Start: 2022 Measurement of Borre mendoza burgdorferi antibody [facility] Work Phone: Start: 2022 [facility] Work Phone: Microscopic observat ion [Identifier] in Unspecified specimen by Gram stain Gram Stain [facility] Work Phone: Wound Culture Wound Culture [facility] Work Phone: Payers Date Payer Category Payer Self-pay [id number] 2024 Unknown [id number] Private Health Insurance [facility] [id number] Unknown [id number] Unknown [id number] Unknown [id number] Social History Date Type Detail Facility Start: 10-25-2020 End: 10-25-2020 Tobacco smoking status NHIS Unknown if ever smoked [facility] Start: 1965 Sex Assigned At Male W [facility] Medical Equipment Procedure Code Equipment Code Equipment Origin al Text Equipment Identifier Dates Blood Sugar Diagnostic (Accu-Chek Smartview Test Strip) strip Start: 12-17-2021 Lancets (Accu-Ch ek Fastclix Lancet Drum) [facility] Start: 12-23-2019 lancing device w ith lancets kit Start: 06-19-2018 Blood Sugar Diagnostic (Accu-Chek Smartview Test Strip) strip Start: 06-19-2018 End: 12-23-2019 Blood Sugar Diagnostic (Accu-Chek Smartview Test Strip) strip Start: 10-25-2020 End: 12-17-2021 Blood Sugar Diagnostic (Accu-Chek Smartview Test Strip) strip Start: 07-01-2018 End: 12-23-2019 Blood Sugar Diagnostic (Accu-Chek Smartview Test Strip) strip Start: 12-23-2019 End: 10-25-2020 Blood Sugar Diagnostic (Accu-Chek Smartview Test Strip) strip Start: 12-17-2021 Lancets (Accu-Ch ek Fastclix Lancet Drum) misc Start: 12-23-2019 lancing device w ith lancets kit Start: 06-19-2018 Blood Sugar Diagnostic (Accu-Chek Smartview Test Strip) strip Start: 06-19-2018 End: 12-23-2019 Blood Sugar Diagnostic (Accu-Chek Smartview Test Strip) strip Start: 10-25-2020 End: 12-17-2021 Blood Sugar Diagnostic (Accu-Chek Smartview Test Strip) strip Start: 07-01-2018 End: 12-23-2019 Blood Sugar Diagnostic (Accu-Chek Smartview Test Strip) strip Start: 12-23-2019 End: 10-25-2020 Blood Sugar Diagnostic (Accu-Chek Smartview Test Strip) strip Start: 12-17-2021 Lancets (Accu-Ch ek Fastclix Lancet Drum) misc Start: 12-23-2019 lancing device w [facility] lancets kit Start: 06-19-2018 Blood Sugar Diagnostic (Accu-Chek Smartview Test Strip) strip Start: 06-19-2018 End: 12-23-2019 Blood Sugar Diagnostic (Accu-Chek Smartview Test Strip) strip Start: 10-25-2020 End: 12-17-2021 Blood Sugar Diagnostic (Accu-Chek Smartview Test Strip) strip Start: 07-01-2018 End: 12-23-2019 Blood Sugar Diagnostic (Accu-Chek Smartview Test Strip) strip Start: 12-23-2019 End: 10-25-2020 Blood Sugar Diagnostic (Accu-Chek Smartview Test Strip) strip Start: 07-23-2023 Lancets (Accu-Ch ek Fastclix Lancet Drum) misc Start: 07-23-2023 lancing device w [facility] lancets kit Start: 06-19-2018 Blood Sugar Diagnostic (Accu-Chek Smartview Test Strip) strip Start: 06-19-2018 End: 12-23-2019 Blood Sugar Diagnostic (Accu-Chek Smartview Test Strip) strip Start: 10-25-2020 End: 12-17-2021 Blood Sugar Diagnostic (Accu-Chek Smartview Test Strip) strip Start: 07-01-2018 End: 12-23-2019 Blood Sugar Diagnostic (Accu-Chek Smartview Test Strip) strip Start: 12-23-2019 End: 10-25-2020 Blood Sugar Diagnostic (Accu-Chek Smartview Test Strip) strip Start: 12-17-2021 End: 07-23-2023 Lancets (Accu-Ch ek Fastclix Lancet Drum) [facility] Start: 12-23-2019 End: 07-23-2023 Evaluation note Note Date & Type Note Facility Evaluation note Diagnosis Onset Date [id number] acute Peripheral neuropathy acute Cellulitis of right lower leg acute [id number] acute [facility] Work Phone: Evaluation note Note Date & Type Note Facility Evaluation note Diagnosis Onset Date Bronchitis acute Right acute otitis media acu te Sinusitis acute Diabetes type 2, uncontrolled acute Hypertension chronic [facility] Work Phone: Evaluation note Note Date & Type Note Facility Evaluation note Diagnosis Onset Date Anxiety acute Diabetes type 2, uncontrolled acute Hyperlipidemia LDL goal <130 acute [facility] Work Phone: Chief Complaint and Reason for Visit Chief Complaint I&D R) infected 2nd toe Cellulitis/Wound care W/R leg Reason for Visit [id number] Peripheral neuropathy Cellulitis of right lower leg [id number] Chief Complaint Sinus cough X4 days medication refills/Labs Reason for Visit Bronchitis Right acute otitis media Sinusitis Diabetes type 2, uncontrolled Hypertension Chief Complaint medication refills/l abs Reason for Visit Anxiety Diabetes type 2, uncontrolled Hyperlipidemia LDL goal <130 Family History No Family History Records Found Relationship Condition Age at Onset Recorded Date/T leidy Not Specified Diabetes mellitus Unknown Diverticulitis Unknown Cardiac disease Unknown Cerebrovascular accident (CVA) Unknown Summary Purpose Advance Directives No Advanced Directives Records Found Additional Source Comments Goals (unrecognized section and content) Goals may be documented in a n alternate sectionGoals may be documented in an alternate sectionGoals may be documented in an alternate sectionGoals may be documented in an alternate section Care Teams (unrecognized sec tion and content) Team Status: Active Member Role Status Dates Berenice Pittman [employer] ATTENDANT, [employer] ATTENDANT-C Primary Care Provider Active Team Status: Inactive Member Role Status Dates Berenice Pittman NP, KITTY-C Attending Provider, Referring Provider Active Team Status: Inactive Member Role Status Dates Berenice Pittman [employer] ATTENDANT, [employer] ATTENDANT-C Primary Care Provider, Attend ing Provider Active (unrecognized sect ion and content) No Status Records Found INFORMATION SOURCE (unrecogn ized section and content) DATE CREATED AUTHOR 05/26/2025 [facility] FOR RECORDS PERTAINING TO PATIENTS WHO ARE OR HAVE BEEN ENROLLED IN A CHEMICAL DEPENDENCY/SUBSTANCEABUSE PROGRAM, SOME INFORMATION MAY BE OMITTED. This clinical summary was aggregated from multiple sources. Caution should be exercised in using it in the provision of clinical care. This summary normalizes information from multiple sources, and as a consequence, information in this document may materially change the coding, format and clinical context of patient data. In addition, data may be omitted in some cases. CLINICAL DECISIONS SHOULD BE BASED ON THE PRIMARY CLINICAL RECORDS. [facility] [employer], [facility]. provides no warranty or guarantee of the accuracy or completeness of information in this document.
[2025-06-30 22:14] LABS: Cholesterol 224 mg/dL (<=200); Low Density Lipoprotein Calc. 106 mg/dL; PSA,Total- Diagnostic 0.40 ng/mL (0.00-4.00); Triglycerides 459 mg/dL; Very Low Density Lipoprotein 92 mg/dL (5-40); cholesterol:hdl ratio screen 5.73
== END | disposition home or self-care (01) ==
PROVIDERS: PCP Nurse Practitioner; Referring Provider Nurse Practitioner; Visit Provider Nurse Practitioner
DX: E78.5 Hyperlipidemia, unspecified (principal); E11.65 Type 2 diabetes mellitus with hyperglycemia
CPT/HCPCS: 80061; 83036; 84153

== ENCOUNTER → 2025-07-06 | Outpatient (CLI) | payer BC, SELFPAY ==
--- OUTSIDE RECORDS SUMMARY | 2025-07-06 14:50 | XMS RPT_ITS | CCD ---
Author Organization [facility] ion Partnership [facility] Care Team Providers Care Security Dispatcher Name Role Phone Zain PHILOSOPHY LECTURER, Berenice Attending Unavailable Zain PHILOSOPHY LECTURER, Berenice Primary Care Unavailable Zain TANG, Berenice Attending Unavailable Zain PHILOSOPHY LECTURER, Berenice Primary Care Unavailable Hemal Tucker Attending Unavailable Zain PHILOSOPHY LECTURER, Berenice Primary Care Unavailable Allergies Allergy Classification Reported Allergen(s) Allergy Type Date of Onset Reaction(s) Facility (4 sources) Amoxicillin Drug Allergy 06-19-2018 Swelling [facility] (4 sources) atorvastatin Drug Allergy 06-19-2018 did not work [facility] (4 sources) Clavulanate Drug Allergy 06-19-2018 [facility] (1 source) Amoxicillin Drug Allergy 05-25-2025 [facility] Repository (1 source) atorvastatin Drug Allergy 05-25-2025 [facility] Repository (1 source) Clavulanate Drug Allergy 05-25-2025 [facility] Repository Medications Current Medications Medication Drug [...] disease (1 source) Atherosclerotic heart disease of [place] coronary artery without angina pectoris; Translations: [Atherosclerotic heart disease of [place] coronary artery without angina pectoris] Onset: 05-25-2025 [...] Interpretation Reference Range Facility CRP, High Sensitivity [id number] on 05-26-2025 CRP, HIGH SENS < 0.15 Normal 0.00-3.00 [facility] Comment on above: Result Comment: Rela tive Risk for Future Cardiovascular Event Low <1.00 Average 1.00 - 3.00 High >3.00 Performed at: [address] [id number] Tongue Presser: Jabier Ashford PhD, Phone: [phone] Performed By: #### L 3100.7870 #### [facility] [address] [place], [place], [id number] Basic Metabolic Profile (BMP )on 05-25-2025 BUN/CRE 30.6 RATIO High 10-20 [facility] Comment on above: Performed By: #### L 500.4050, L501.9985, L500.4100, L100.0100, L501.5200, L501.9910 #### [facility] [address] [place], [place], [id number] (456) Calcium [Mass/Vol] 9.7 mg/dL Normal 7.6-11.0 [facility] Comment on above: Performed By: #### L 500.4050, L501.9985, L500.4100, L100.0100, L501.5200, L501.9910 #### [facility] [address] [place], [address] Chloride [Moles/Vol] 101 mmol/L Normal 98-108 [facility] Comment on above: Performed By: #### L 500.4050, L501.9985, L500.4100, L100.0100, L501.5200, L501.9910 #### [facility] [address] [place], [address] CO2 [Moles/Vol] 20.2 mmol/L Low 21.0-32.0 [facility] Comment on above: Performed By: #### L 500.4050, L501.9985, L500.4100, L100.0100, L501.5200, L501.9910 #### [facility] [address] [place], [address] Creatinine [Mass/Vol] 0.68 mg/dL Low 0.70-1.20 [facility] Comment on above: Performed By: #### L 500.4050, L501.9985, L500.4100, L100.0100, L501.5200, L501.9910 #### [facility] [address] [place], [address] ECRCL 121.50 ml/min Normal 50-250 [facility] Comment on above: Performed By: #### L 500.4050, L501.9985, L500.4100, L100.0100, L501.5200, L501.9910 #### [facility] [address] [place], [address] GAP 15 Normal 5-15 [facility] Comment on above: Performed By: #### L 500.4050, L501.9985, L500.4100, L100.0100, L501.5200, L501.9910 #### [facility] [address] [place], [address] GFR/1.73 sq M.predicted among non-blacks MDRD (S/P/Bld) [Vol rate/Area] 106 mL/min/{1.73_m2} Normal >60 [facility] Comment on above: Result Comment: mL/m in/1.73m2 CKD-EPI Creatinine Equation (2020) Performed By: #### L 500.4050, L501.9985, L500.4100, L100.0100, L501.5200, L501.9910 #### [facility] [address] [place], [address] Glucose [Mass/Vol] 202 mg/dL High 70-99 [facility] Comment on above: Performed By: #### L 500.4050, L501.9985, L500.4100, L100.0100, L501.5200, L501.9910 #### [facility] [address] [place], [address] Potassium [Moles/Vol] 4.3 mmol/L Normal 3.3-5.1 [facility] Comment on above: Result Comment: Hemo lysis present, Results??could be affected. ?? Performed By: #### L 500.4050, L501.9985, L500.4100, L100.0100, L501.5200, L501.9910 #### [facility] [address] [place], [address] Sodium [Moles/Vol] 135 mmol/L Normal 133-145 [facility] Comment on above: Performed By: #### L 500.4050, L501.9985, L500.4100, L100.0100, L501.5200, L501.9910 #### [facility] [address] [place], [address] Urea nitrogen [Mass/Vol] 21 mg/dL High 4-19 [facility] Comment on above: Performed By: #### L 500.4050, L501.9985, L500.4100, L100.0100, L501.5200, L501.9910 #### [facility] [address] [place], [address] CBC W/Diff, Automatedon 11- Absolute Lymph 2.82 X10 3/uL Normal 0.83-4.51 [facility] Comment on above: Performed By: #### L 500.4050, L501.9985, L500.4100, L100.0100, L501.5200, L501.9910 #### [facility] [address] [place], [address] Absolute Neut 5.9 X10 3/uL Normal 2.0-7.7 [facility] Comment on above: Performed By: #### L 500.4050, L501.9985, L500.4100, L100.0100, L501.5200, L501.9910 #### [facility] [address] [place], [address] Basophils/100 WBC (Bld) 1.1 % High 0-1 [facility] Comment on above: Performed By: #### L 500.4050, L501.9985, L500.4100, L100.0100, L501.5200, L501.9910 #### [facility] [address] [place], [address] Eosinophils/100 WBC (Bld) 2.9 % Normal 0-5 [facility] Comment on above: Performed By: #### L 500.4050, L501.9985, L500.4100, L100.0100, L501.5200, L501.9910 #### [facility] [address] [place], [address] Erythrocyte distribution width (RBC) [Ratio] 12.3 % Normal 11.6-14.6 [facility] Comment on above: Performed By: #### L 500.4050, L501.9985, L500.4100, L100.0100, L501.5200, L501.9910 #### [facility] [address] [place], [address] Hematocrit (Bld) [Volume fraction] 47.2 % Normal 40-54 [facility] Comment on above: Performed By: #### L 500.4050, L501.9985, L500.4100, L100.0100, L501.5200, L501.9910 #### [facility] [address] [place], [address] Hemoglobin (Bld) [Mass/Vol] 15.9 g/dL Normal 13.0-16.5 [facility] Comment on above: Performed By: #### L 500.4050, L501.9985, L500.4100, L100.0100, L501.5200, L501.9910 #### [facility] [address] [place], [address] IG% 1.700 High 0.0-0.9 [facility] Comment on above: Result Comment: IG% - Immature Granulocytes (promyelocytes, myelocytes and metamyelocytes) > 1% indicates that a LEFT SHIFT is Present. Performed By: #### L 500.4050, L501.9985, L500.4100, L100.0100, L501.5200, L501.9910 #### [facility] [address] [place], [address] Lymphocytes/100 WBC (Bld) 28.2 % Normal 19-41 [facility] Comment on above: Performed By: #### L 500.4050, L501.9985, L500.4100, L100.0100, L501.5200, L501.9910 #### [facility] [address] [place], [address] MCH (RBC) [Entitic mass] 28.8 pg Normal 27.0-32.0 [facility] Comment on above: Performed By: #### L 500.4050, L501.9985, L500.4100, L100.0100, L501.5200, L501.9910 #### [facility] [address] [place], [address] MCHC (RBC) [Mass/Vol] 33.7 g/dL Normal 32-36 [facility] Comment on above: Performed By: #### L 500.4050, L501.9985, L500.4100, L100.0100, L501.5200, L501.9910 #### [facility] [address] [place], [address] MCV (RBC) [Entitic vol] 85.5 fL Normal 80-94 [facility] Comment on above: Performed By: #### L 500.4050, L501.9985, L500.4100, L100.0100, L501.5200, L501.9910 #### [facility] [address] [place], [address] Monocytes/100 WBC (Bld) 6.9 % Normal 0-10 [facility] Comment on above: Performed By: #### L 500.4050, L501.9985, L500.4100, L100.0100, L501.5200, L501.9910 #### [facility] [address] [place], [address] Neutrophils/100 WBC (Bld) 59.2 % Normal 47-70 [facility] Comment on above: Performed By: #### L 500.4050, L501.9985, L500.4100, L100.0100, L501.5200, L501.9910 #### [facility] [address] [place], [address] Nucleated RBC (Bld) [#/Vol] 0 10*3/uL Normal 0-5 [facility] Comment on above: Performed By: #### L 500.4050, L501.9985, L500.4100, L100.0100, L501.5200, L501.9910 #### [facility] [address] [place], [address] Platelet mean volume (Bld) [Entitic vol] 9.5 fL Normal 6.2-12.0 [facility] Comment on above: Performed By: #### L 500.4050, L501.9985, L500.4100, L100.0100, L501.5200, L501.9910 #### [facility] [address] [place], [address] Platelets (Bld) [#/Vol] 228 10*3/uL Normal 150-450 [facility] Comment on above: Performed By: #### L 500.4050, L501.9985, L500.4100, L100.0100, L501.5200, L501.9910 #### [facility] [address] [place], [address] RBC (Bld) [#/Vol] 5.52 10*6/uL Normal 4.6-6.2 [facility] Comment on above: Performed By: #### L 500.4050, L501.9985, L500.4100, L100.0100, L501.5200, L501.9910 #### [facility] [address] [place], [address] RDW SD 38.2 fl Normal 35.1-43.9 [facility] Comment on above: Performed By: #### L 500.4050, L501.9985, L500.4100, L100.0100, L501.5200, L501.9910 #### [facility] [address] [place], [address] WBC (Bld) [#/Vol] 10.0 10*3/uL Normal 4.4-11.0 [facility] Comment on above: Performed By: #### L 500.4050, L501.9985, L500.4100, L100.0100, L501.5200, L501.9910 #### [facility] [address] [place], [address] Chest 1 View (Portable)on Chest 1 View (Portable) [facility] Imaging Services [address] [address] Chest 1 View (Portable) MR#: [id number] Acct: [id number] Name: EMILY GONZALEZ R Rep #: [id number] : 1965 M 60 From: Rogerio charles MD PCP: LYNETTE Corado Status: REG ER Study: Chest 1 View (Portable) Date of Exam: 05/25/25 Exam# [id number] Ordering Dr: Hemal Tucker DO PROCEDURE: CHEST [...] suggestive of mild linear atelectasis. Reading Location: [place] [address] CC: PHILOSOPHY LECTURER-C Berenice Pittman; Dr. Hemal Tucker DO Meter/Relay Technician: Signed Normal [facility] Emergency Department Summary on 05-25-2025 Emergency Department Summary [facility] Medical Records Department [address] [place] [address] Emergency Department Summary 05/25/25 MR#: [id number] Acct: [id number] Name: EMILY GONZALEZ R Rep #: [id number] : 1965 60 From: Hemal Tucker DO [...] he has not had a stress test. [facility] Medical History CVD (cardiovascular disease) Anxiety Diabetes [...] follow commands knew that he was at [facility] years 2024 Skin: Warm, dry, intact no [...] troponins in (more content not included)... Normal [facility] L501.4021on 05-25-2025 Trop T High Sen 21 ng/L Normal <=22 [facility] Comment on above: Performed By: #### L 500.4050, L501.9985, L500.4100, L100.0100, L501.5200, L501.9910 #### [facility] [address] [place], [address] Troponin T HS 2 HRon 025 Trop T High Sen Normal <=22 [facility] Comment on above: Result Comment: Phil velásquez via OM: Ordered Performed By: #### L 499.0042 #### [facility] [address] [place], [address] Troponin T HS 4 HRon 025 Trop T High Sen Normal <=22 [facility] Comment on above: Result Comment: Phil velásquez via OM: Ordered Performed By: #### L 500.4050, L501.9985, L500.4100, L100.0100, L501.5200, L501.9910 #### [facility] [address] [place], [address] CBC W/Diff, Automatedon 05-14 Absolute Lymph 2.98 X10 3/uL Normal 0.83-4.51 [facility] Comment on above: Performed By: #### L 500.4050, L501.9985, L500.4100, L100.0100, L501.5200, L501.9910 #### [facility] [address] [place], [address] Absolute Neut 6.2 X10 3/uL Normal 2.0-7.7 [facility] Comment on above: Performed By: #### L 500.4050, L501.9985, L500.4100, L100.0100, L501.5200, L501.9910 #### [facility] [address] [place], [address] Basophils/100 WBC (Bld) 0.9 % Normal 0-1 [facility] Comment on above: Performed By: #### L 500.4050, L501.9985, L500.4100, L100.0100, L501.5200, L501.9910 #### [facility] [address] [place], [address] Eosinophils/100 WBC (Bld) 2.3 % Normal 0-5 [facility] Comment on above: Performed By: #### L 500.4050, L501.9985, L500.4100, L100.0100, L501.5200, L501.9910 #### [facility] [address] [place], [address] Erythrocyte distribution width (RBC) [Ratio] 12.1 % Normal 11.6-14.6 [facility] Comment on above: Performed By: #### L 500.4050, L501.9985, L500.4100, L100.0100, L501.5200, L501.9910 #### [facility] [address] [place], [address] Hematocrit (Bld) [Volume fraction] 46.2 % Normal 40-54 [facility] Comment on above: Performed By: #### L 500.4050, L501.9985, L500.4100, L100.0100, L501.5200, L501.9910 #### [facility] [address] [place], [address] Hemoglobin (Bld) [Mass/Vol] 15.8 g/dL Normal 13.0-16.5 [facility] Comment on above: Performed By: #### L 500.4050, L501.9985, L500.4100, L100.0100, L501.5200, L501.9910 #### [facility] [address] [place], [address] IG% 1.700 High 0.0-0.9 [facility] Comment on above: Result Comment: IG% - Immature Granulocytes (promyelocytes, myelocytes and metamyelocytes) > 1% indicates that a LEFT SHIFT is Present. Performed By: #### L 500.4050, L501.9985, L500.4100, L100.0100, L501.5200, L501.9910 #### [facility] [address] [place], [address] Lymphocytes/100 WBC (Bld) 28.5 % Normal 19-41 [facility] Comment on above: Performed By: #### L 500.4050, L501.9985, L500.4100, L100.0100, L501.5200, L501.9910 #### [facility] [address] [facility] [place], [address] MCH (RBC) [Entitic mass] 28.6 pg Normal 27.0-32.0 [facility] Comment on above: Performed By: #### L 500.4050, L501.9985, L500.4100, L100.0100, L501.5200, L501.9910 #### [facility] [address] [place], [address] MCHC (RBC) [Mass/Vol] 34.2 g/dL Normal 32-36 [facility] Comment on above: Performed By: #### L 500.4050, L501.9985, L500.4100, L100.0100, L501.5200, L501.9910 #### [facility] [address] [place], [address] MCV (RBC) [Entitic vol] 83.7 fL Normal 80-94 [facility] Comment on above: Performed By: #### L 500.4050, L501.9985, L500.4100, L100.0100, L501.5200, L501.9910 #### [facility] [address] [place], [address] Monocytes/100 WBC (Bld) 7.2 % Normal 0-10 [facility] Comment on above: Performed By: #### L 500.4050, L501.9985, L500.4100, L100.0100, L501.5200, L501.9910 #### [facility] [address] [place], [address] Neutrophils/100 WBC (Bld) 59.4 % Normal 47-70 [facility] Comment on above: Performed By: #### L 500.4050, L501.9985, L500.4100, L100.0100, L501.5200, L501.9910 #### [facility] [address] [place], [address] Nucleated RBC (Bld) [#/Vol] 0 10*3/uL Normal 0-5 [facility] Comment on above: Performed By: #### L 500.4050, L501.9985, L500.4100, L100.0100, L501.5200, L501.9910 #### [facility] [address] [place], [address] Platelet mean volume (Bld) [Entitic vol] 10.1 fL Normal 6.2-12.0 [facility] Comment on above: Performed By: #### L 500.4050, L501.9985, L500.4100, L100.0100, L501.5200, L501.9910 #### [facility] [address] [place], [address] Platelets (Bld) [#/Vol] 281 10*3/uL Normal 150-450 [facility] Comment on above: Performed By: #### L 500.4050, L501.9985, L500.4100, L100.0100, L501.5200, L501.9910 #### [facility] [address] [place], [address] RBC (Bld) [#/Vol] 5.52 10*6/uL Normal 4.6-6.2 [facility] Comment on above: Performed By: #### L 500.4050, L501.9985, L500.4100, L100.0100, L501.5200, L501.9910 #### [facility] [address] [place], [address] RDW SD 36.6 fl Normal 35.1-43.9 [facility] Comment on above: Performed By: #### L 500.4050, L501.9985, L500.4100, L100.0100, L501.5200, L501.9910 #### [facility] [address] [place], [address] WBC (Bld) [#/Vol] 10.4 10*3/uL Normal 4.4-11.0 [facility] Comment on above: Performed By: #### L 500.4050, L501.9985, L500.4100, L100.0100, L501.5200, L501.9910 #### [facility] [address] [place], [address] Comprehensive Metabolic Prof [facility] 05-24-2025 Albumin [Mass/Vol] 4.7 g/dL Normal 3.4-4.8 [facility] Comment on above: Performed By: #### L 500.4050, L501.9985, L500.4100, L100.0100, L501.5200, L501.9910 #### [facility] [address] [place], [address] Albumin/Globulin [Mass ratio] 1.7 {ratio} Normal 0.9-2.4 [facility] Comment on above: Performed By: #### L 500.4050, L501.9985, L500.4100, L100.0100, L501.5200, L501.9910 #### [facility] [address] [place], [address] ALK PHOS 84 U/L Normal 40-129 [facility] Comment on above: Performed By: #### L 500.4050, L501.9985, L500.4100, L100.0100, L501.5200, L501.9910 #### [facility] [address] [place], [address] ALT [Catalytic activity/Vol] 84 U/L High <=46 [facility] Comment on above: Performed By: #### L 500.4050, L501.9985, L500.4100, L100.0100, L501.5200, L501.9910 #### [facility] [address] [place], [address] AST [Catalytic activity/Vol] 44 U/L High <=37 [facility] Comment on above: Performed By: #### L 500.4050, L501.9985, L500.4100, L100.0100, L501.5200, L501.9910 #### [facility] [address] [place], [address] Bilirubin [Mass/Vol] 0.58 mg/dL Normal 0.00-1.30 [facility] Comment on above: Performed By: #### L 500.4050, L501.9985, L500.4100, L100.0100, L501.5200, L501.9910 #### [facility] [address] [place], [address] BUN/CRE 29.8 RATIO High 10-20 [facility] Comment on above: Performed By: #### L 500.4050, L501.9985, L500.4100, L100.0100, L501.5200, L501.9910 #### [facility] [address] [place], [address] Calcium [Mass/Vol] 9.9 mg/dL Normal 7.6-11.0 [facility] Comment on above: Performed By: #### L 500.4050, L501.9985, L500.4100, L100.0100, L501.5200, L501.9910 #### [facility] [address] [place], [address] Chloride [Moles/Vol] 97 mmol/L Low 98-108 [facility] Comment on above: Performed By: #### L 500.4050, L501.9985, L500.4100, L100.0100, L501.5200, L501.9910 #### [facility] [address] [place], [address] CO2 [Moles/Vol] 23.5 mmol/L Normal 21.0-32.0 [facility] Comment on above: Performed By: #### L 500.4050, L501.9985, L500.4100, L100.0100, L501.5200, L501.9910 #### [facility] [address] [place], [address] Creatinine [Mass/Vol] 0.97 mg/dL Normal 0.70-1.20 [facility] Comment on above: Performed By: #### L 500.4050, L501.9985, L500.4100, L100.0100, L501.5200, L501.9910 #### [facility] [address] [place], [address] GAP 14 Normal 5-15 [facility] Comment on above: Performed By: #### L 500.4050, L501.9985, L500.4100, L100.0100, L501.5200, L501.9910 #### [facility] [address] [place], [address] GFR/1.73 sq M.predicted among non-blacks MDRD (S/P/Bld) [Vol rate/Area] 89 mL/min/{1.73_m2} Normal >60 [facility] Comment on above: Result Comment: mL/m in/1.73m2 CKD-EPI Creatinine Equation (2020) Performed By: #### L 500.4050, L501.9985, L500.4100, L100.0100, L501.5200, L501.9910 #### [facility] [address] [place], [address] Globulin (S) [Mass/Vol] 2.8 g/dL Normal 2.2-4.2 [facility] Comment on above: Performed By: #### L 500.4050, L501.9985, L500.4100, L100.0100, L501.5200, L501.9910 #### [facility] [address] [place], [address] Glucose [Mass/Vol] 243 mg/dL High 70-99 [facility] Comment on above: Performed By: #### L 500.4050, L501.9985, L500.4100, L100.0100, L501.5200, L501.9910 #### [facility] [address] [place], [address] Potassium [Moles/Vol] 4.0 mmol/L Normal 3.3-5.1 [facility] Comment on above: Performed By: #### L 500.4050, L501.9985, L500.4100, L100.0100, L501.5200, L501.9910 #### [facility] [address] [place], [address] Sodium [Moles/Vol] 135 mmol/L Normal 133-145 [facility] Comment on above: Performed By: #### L 500.4050, L501.9985, L500.4100, L100.0100, L501.5200, L501.9910 #### [facility] [address] [place], [address] T PROT 7.5 g/dL Normal 5.9-8.4 [facility] Comment on above: Performed By: #### L 500.4050, L501.9985, L500.4100, L100.0100, L501.5200, L501.9910 #### [facility] [address] [place], [address] Urea nitrogen [Mass/Vol] 29 mg/dL High 4-19 [facility] Comment on above: Performed By: #### L 500.4050, L501.9985, L500.4100, L100.0100, L501.5200, L501.9910 #### [facility] [address] [place], [address] L501.4021on 05-24-2025 Trop T High Sen 23 ng/L High <=22 [facility] Comment on above: Performed By: #### L 500.4050, L501.9985, L500.4100, L100.0100, L501.5200, L501.9910 #### [facility] [address] [place], [address] Lipid Profileon 05-24-2025 CHOL:HDL 2.89 Normal [facility] Comment on above: Performed By: #### L 500.4050, L501.9985, L500.4100, L100.0100, L501.5200, L501.9910 #### [facility] [address] [place], [address] Cholesterol [Mass/Vol] 115 mg/dL Normal <=200 [facility] Comment on above: Result Comment: Chol esterol level, Desirable <200 mg/dL Borderline high cholesterol 200-239 mg/dL High cholesterol >=240 mg/dL Recommendations of the NCEP Adult Treatment Panel for the following risk-cutoff thresholds for the [place] population. Performed By: #### L 500.4050, L501.9985, L500.4100, L100.0100, L501.5200, L501.9910 #### [facility] [address] [place], [address] Cholesterol in HDL [Mass/Vol] 40 mg/dL Normal [facility] Comment on above: Result Comment: Rosa onal Cholesterol Education Program (NCEP) guidelines: <40 mg/dL: Low HDL-cholesterol (major risk factor for CHD) >= 60 mg/dL: High HDL-cholesterol (negative risk factor for CHD) HDL-cholesterol is affected by a number of factors, e.g. smoking, exercise, hormones, sex and age. Performed By: #### L 500.4050, L501.9985, L500.4100, L100.0100, L501.5200, L501.9910 #### [facility] [address] [place], [address] Cholesterol in LDL [Mass/Vol] 47 mg/dL Normal [facility] Comment on above: Result Comment: Bord mbjqwy=555-678 mg/dL Higher Zylf=523 mg/dL or greater Shafer Equation 2020 for LDL-C Performed By: #### L 500.4050, L501.9985, L500.4100, L100.0100, L501.5200, L501.9910 #### [facility] [address] [place], [address] Cholesterol in VLDL [Mass/Vol] 34 mg/dL Normal 5-40 [facility] Comment on above: Performed By: #### L 500.4050, L501.9985, L500.4100, L100.0100, L501.5200, L501.9910 #### [facility] [address] [place], [address] Triglyceride [Mass/Vol] 169 mg/dL Normal [facility] Comment on above: Result Comment: The drugs N-Acetylcysteine and Metamizole may falsely depress this assay. Normal range: <150 mg/dL Borderline High: 150-199 mg/dL High: 200-499 mg/dL Very High: >500 mg/dL Performed By: #### L 500.4050, L501.9985, L500.4100, L100.0100, L501.5200, L501.9910 #### [facility] [address] [place], [place], [id number] PSA,Total- Diagnosticon 05-14 PSA, DIAGNOSTIC 0.33 ng/mL Normal 0.00-4.00 [facility] Comment on above: Result Comment: This [...] 500.4050, L501.9985, L500.4100, L100.0100, L501.5200, L501.9910 #### [facility] [address] [place], [place], [id number] CBC W/Diff, Automatedon 07-14 Absolute Lymph 2.78 X10 3/uL Normal 0.83-4.51 [facility] Comment on above: Performed By: #### L 500.4050, [id number], L500.4100, L100.0100, L501.5200, L501.9910 #### [facility] [address] [place], [address] Absolute Neut 6.0 X10 3/uL Normal 2.0-7.7 [facility] Comment on above: Performed By: #### L 500.4050, L501.9985, L500.4100, L100.0100, L501.5200, L501.9910 #### [facility] [address] [place], [address] Basophils/100 WBC (Bld) 1.0 % Normal 0-1 [facility] Comment on above: Performed By: #### L 500.4050, [id number], L500.4100, L100.0100, L501.5200, L501.9910 #### [facility] [address] [place], [address] Eosinophils/100 WBC (Bld) 2.6 % Normal 0-5 [facility] Comment on above: Performed By: #### L 500.4050, L501.9985, L500.4100, L100.0100, L501.5200, L501.9910 #### [facility] [address] [place], [address] Erythrocyte distribution width (RBC) [Ratio] 12.3 % Normal 11.6-14.6 [facility] Comment on above: Performed By: #### L 500.4050, L501.9985, L500.4100, L100.0100, L501.5200, L501.9910 #### [facility] [address] [place], [address] Hematocrit (Bld) [Volume fraction] 46.0 % Normal 40-54 [facility] Comment on above: Performed By: #### L 500.4050, L501.9985, L500.4100, L100.0100, L501.5200, L501.9910 #### [facility] [address] [place], [address] Hemoglobin (Bld) [Mass/Vol] 15.5 g/dL Normal 13.0-16.5 [facility] Comment on above: Performed By: #### L 500.4050, L501.9985, L500.4100, L100.0100, L501.5200, L501.9910 #### [facility] [address] [place], [address] IG% 1.800 High 0.0-0.9 [facility] Comment on above: Result Comment: IG% - Immature Granulocytes (promyelocytes, myelocytes and metamyelocytes) > 1% indicates that a LEFT SHIFT is Present. Performed By: #### L 500.4050, L501.9985, L500.4100, L100.0100, L501.5200, L501.9910 #### [facility] [address] [place], [address] Lymphocytes/100 WBC (Bld) 27.7 % Normal 19-41 [facility] Comment on above: Performed By: #### L 500.4050, [id number], L500.4100, L100.0100, L501.5200, L501.9910 #### [facility] [address] [place], [address] MCH (RBC) [Entitic mass] 28.2 pg Normal 27.0-32.0 [facility] Comment on above: Performed By: #### L 500.4050, L501.9985, L500.4100, L100.0100, L501.5200, L501.9910 #### [facility] [address] [place], [address] MCHC (RBC) [Mass/Vol] 33.7 g/dL Normal 32-36 [facility] Comment on above: Performed By: #### L 500.4050, L501.9985, L500.4100, L100.0100, L501.5200, L501.9910 #### [facility] [address] [place], [address] MCV (RBC) [Entitic vol] 83.8 fL Normal 80-94 [facility] Comment on above: Performed By: #### L 500.4050, [id number], L500.4100, L100.0100, L501.5200, L501.9910 #### [facility] [address] [place], [address] Monocytes/100 WBC (Bld) 7.7 % Normal 0-10 [facility] Comment on above: Performed By: #### L 500.4050, [id number], L500.4100, L100.0100, L501.5200, L501.9910 #### [facility] [address] [place], [address] Neutrophils/100 WBC (Bld) 59.2 % Normal 47-70 [facility] Comment on above: Performed By: #### L 500.4050, L501.9985, L500.4100, L100.0100, L501.5200, L501.9910 #### [facility] [address] [place], [address] Nucleated RBC (Bld) [#/Vol] 0 10*3/uL Normal 0-5 [facility] Comment on above: Performed By: #### L 500.4050, L501.9985, L500.4100, L100.0100, L501.5200, L501.9910 #### [facility] [address] [place], [address] Platelet mean volume (Bld) [Entitic vol] 10.3 fL Normal 6.2-12.0 [facility] Comment on above: Performed By: #### L 500.4050, L501.9985, L500.4100, L100.0100, L501.5200, L501.9910 #### [facility] [address] [place], [address] Platelets (Bld) [#/Vol] 238 10*3/uL Normal 150-450 [facility] Comment on above: Performed By: #### L 500.4050, L501.9985, L500.4100, L100.0100, L501.5200, L501.9910 #### [facility] [address] [place], [address] RBC (Bld) [#/Vol] 5.49 10*6/uL Normal 4.6-6.2 [facility] Comment on above: Performed By: #### L 500.4050, [id number], L500.4100, L100.0100, L501.5200, L501.9910 #### [facility] [address] [place], [address] RDW SD 37.3 fl Normal 35.1-43.9 [facility] Comment on above: Performed By: #### L 500.4050, L501.9985, L500.4100, L100.0100, L501.5200, L501.9910 #### [facility] [address] [place], [address] WBC (Bld) [#/Vol] 10.1 10*3/uL Normal 4.4-11.0 [facility] Comment on above: Performed By: #### L 500.4050, L501.9985, L500.4100, L100.0100, L501.5200, L501.9910 #### [facility] [address] [place], [address] Comprehensive Metabolic Prof flon 07-27-2024 Albumin [Mass/Vol] 4.1 g/dL Normal 3.2-5.0 [facility] Comment on above: Performed By: #### L 500.4050, L501.9985, L500.4100, L100.0100, L501.5200, L501.9910 #### [facility] [address] [place], [address] Albumin/Globulin [Mass ratio] 1.2 {ratio} Normal 0.9-2.4 [facility] Comment on above: Performed By: #### L 500.4050, L501.9985, L500.4100, L100.0100, L501.5200, L501.9910 #### [facility] [address] [place], [address] ALK P 84 U/L Normal 45-117 [facility] Comment on above: Performed By: #### L 500.4050, L501.9985, L500.4100, L100.0100, L501.5200, L501.9910 #### [facility] [address] [place], [address] ALT [Catalytic activity/Vol] 40 U/L Normal 16-61 [facility] Comment on above: Performed By: #### L 500.4050, L501.9985, L500.4100, L100.0100, L501.5200, L501.9910 #### [facility] [address] [place], [address] AST [Catalytic activity/Vol] 23 U/L Normal 15-37 [facility] Comment on above: Performed By: #### L 500.4050, L501.9985, L500.4100, L100.0100, L501.5200, L501.9910 #### [facility] [address] [place], [address] Bilirubin [Mass/Vol] 0.40 mg/dL Normal 0.20-1.00 [facility] Comment on above: Result Comment: For patients on eltrombopag therapy, use of Dimension [place] TBIL is not recommended. Performed By: #### L 500.4050, L501.9985, L500.4100, L100.0100, L501.5200, L501.9910 #### [facility] [address] [place], [address] BUN/CRE 31.8 RATIO High 10-20 [facility] Comment on above: Performed By: #### L 500.4050, L501.9985, L500.4100, L100.0100, L501.5200, L501.9910 #### [facility] [address] [place], [address] CA,Total 9.6 mg/dL Normal 8.5-10.1 [facility] Comment on above: Performed By: #### L 500.4050, L501.9985, L500.4100, L100.0100, L501.5200, L501.9910 #### [facility] [address] [place], [address] Chloride [Moles/Vol] 102 mmol/L Normal 98-107 [facility] Comment on above: Performed By: #### L 500.4050, L501.9985, L500.4100, L100.0100, L501.5200, L501.9910 #### [facility] [address] [place], [address] CO2 [Moles/Vol] 27.0 mmol/L Normal 21.0-32.0 [facility] Comment on above: Performed By: #### L 500.4050, L501.9985, L500.4100, L100.0100, L501.5200, L501.9910 #### [facility] [address] [place], [address] Creatinine [Mass/Vol] 0.72 mg/dL Normal 0.70-1.30 [facility] Comment on above: Result Comment: The validity of the calculated GFR GFRAA in patients over 70 years has not been determined. Clinical correlation is essential. Performed By: #### L 500.4050, L501.9985, L500.4100, L100.0100, L501.5200, L501.9910 #### [facility] [address] [place], [address] EST GFR - AA 142 mL/min Normal >60 [facility] Comment on above: Result Comment: Afri can [place] GFR Calc Performed By: #### L 500.4050, L501.9985, L500.4100, L100.0100, L501.5200, L501.9910 #### [facility] [address] [place], [address] GAP 8 Normal 5-15 [facility] Comment on above: Performed By: #### L 500.4050, L501.9985, L500.4100, L100.0100, L501.5200, L501.9910 #### [facility] [address] [place], [address] GFR/1.73 sq M.predicted among non-blacks MDRD (S/P/Bld) [Vol rate/Area] 117 mL/min/{1.73_m2} Normal >60 [facility] Comment on above: Result Comment: Non- GFR Calc Performed By: #### L 500.4050, L501.9985, L500.4100, L100.0100, L501.5200, L501.9910 #### [facility] [address] [place], [address] Globulin (S) [Mass/Vol] 3.4 g/dL Normal 2.2-4.2 [facility] Comment on above: Performed By: #### L 500.4050, L501.9985, L500.4100, L100.0100, L501.5200, L501.9910 #### [facility] [address] [place], [address] Glucose [Mass/Vol] 195 mg/dL High 74-106 [facility] Comment on above: Result Comment: Fast ing Glucose result greater than or equal to 126 mg/dL suggests DIABETES MELLITUS per A.D.A. criteria. Performed By: #### L 500.4050, L501.9985, L500.4100, L100.0100, L501.5200, L501.9910 #### [facility] [address] [place], [address] Potassium [Moles/Vol] 4.3 mmol/L Normal 3.5-5.1 [facility] Comment on above: Performed By: #### L 500.4050, L501.9985, L500.4100, L100.0100, L501.5200, L501.9910 #### [facility] [address] [place], [address] Sodium [Moles/Vol] 137 mmol/L Normal 136-145 [facility] Comment on above: Performed By: #### L 500.4050, L501.9985, L500.4100, L100.0100, L501.5200, L501.9910 #### [facility] [address] [place], [address] T PROT 7.5 g/dL Normal 6.4-8.2 [facility] Comment on above: Performed By: #### L 500.4050, L501.9985, L500.4100, L100.0100, L501.5200, L501.9910 #### [facility] [address] [place], [address] Urea nitrogen [Mass/Vol] 23 mg/dL High 7-18 [facility] Comment on above: Performed By: #### L 500.4050, L501.9985, L500.4100, L100.0100, L501.5200, L501.9910 #### [facility] [address] [place], [address] Hemoglobin A1con 07-27-2024 HbA1c (Bld) [Mass fraction] 12.7 % High 3.8-5.6 [facility] Comment on above: Result Comment: Norm al < 5.7 % Prediabetic 5.7 - 6.4 % Diabetic >or= 6.5 % Please note range changes. Performed By: #### L 500.4050, L501.9985, L500.4100, L100.0100, L501.5200, L501.9910 #### [facility] [address] [place], [address] Lipid Profileon 07-27-2024 Cholesterol [Mass/Vol] 129 mg/dL Normal 200 [facility] Comment on above: Result Comment: <200 mg/dL Desirable 200-240 mg/dL Borderline >240 mg/dL High Risk Performed By: #### L 500.4050, L501.9985, L500.4100, L100.0100, L501.5200, L501.9910 #### [facility] [address] [place], [address] Cholesterol in HDL [Mass/Vol] 37 mg/dL Low [facility] Comment on above: Result Comment: The drugs N-Acetylcysteine and Metamizole may falsely depress this assay. Reference Range HDL <40 mg/dL Low HDL Cholesterol HDL >or= 60 mg/dL High HDL Cholesterol Performed By: #### L 500.4050, L501.9985, L500.4100, L100.0100, L501.5200, L501.9910 #### [facility] [address] [place], [address] LDL TNP Normal 0-130 [facility] Comment on above: Performed By: #### L 500.4050, L501.9985, L500.4100, L100.0100, L501.5200, L501.9910 #### [facility] [address] [place], [address] Triglyceride [Mass/Vol] 461 mg/dL High [facility] Comment on above: Result Comment: The [...] 500.4050, L501.9985, L500.4100, L100.0100, L501.5200, L501.9910 #### [facility] [address] [place], [address] VLDL TNP Normal 5-40 [facility] Comment on above: Performed By: #### L 500.4050, L501.9985, L500.4100, L100.0100, L501.5200, L501.9910 #### [facility] [address] [place], [address] Magnesiumon 07-27-2024 Magnesium [Mass/Vol] 2.1 mg/dL Normal 1.6-2.6 [facility] Comment on above: Performed By: #### L 500.4050, L501.9985, L500.4100, L100.0100, L501.5200, L501.9910 #### [facility] [address] [place], [address] PSA,Total - Annual Screenon 07-27-2024 PSA,TOT SCREEN 0.36 ng/mL Normal 0.00-4.00 [facility] Comment on above: Result Comment: This test was performed using the TPSA assay method for the [employer] chemistry system. Values obtained with different assay methods cannot be used interchangably. When changing PSA assays in the course of monitoring a patient, additional sequential testing should be carried out to confirm baseline values. Performed By: #### L 500.4050, L501.9985, L500.4100, L100.0100, L501.5200, L501.9910 #### [facility] [address] [place], [address] Absolute lymphocyte countOrd ered By: Berenice Pittman on 07-23-2023 Lymphocytes Auto (Unsp spec) [#/Vol] 2.71 10*3/uL 0.83-4.51 [facility] Basophil percentageOrdered B y: Berenice Pittman on 07-23-2023 Basophils/100 WBC (Bld) 0.8 % 0-1 [facility] Bilirubin [Mass/Vol] 0.60 mg/dL 0.20-1.00 [facility] Comment on above: For patients on eltr ombopag therapy, use of Dimension [place] TBIL is not recommended. Chloride [Moles/Vol] 107 mmol/L 98-107 [facility] Cholesterol [Mass/Vol] 130 mg/dL <200 [facility] Comment on above: <200 mg/dL Desirable 200-240 mg/dL Borderline >240 mg/dL High Risk Eosinophils/100 WBC (Bld) 3.8 % 0-5 [facility] Glucose [Mass/Vol] 180 mg/dL 74-106 [facility] Comment on above: Fasting Glucose resu lt greater than or equal to 126 mg/dL suggests DIABETES MELLITUS per A.D.A. criteria. Neutrophils (Bld) [#/Vol] 5.9 10*3/uL 2.0-7.7 [facility] Neutrophils/100 WBC (Bld) 59.3 % 47-70 [facility] Potassium [Moles/Vol] 3.9 mmol/L 3.5-5.1 [facility] Protein [Mass/Vol] 8.0 g/dL 6.4-8.2 [facility] Sodium [Moles/Vol] 137 mmol/L 136-145 [facility] Triglyceride [Mass/Vol] 224 mg/dL <199 [facility] Comment on above: The drugs N-Acetylcy steine and Metamizole may falsely depress this assay.Serum Triglycerides Reference Interval Normal <150 mg/dL Borderline high 150 - 199 mg/dL High 200 - 499 mg/dL Very High > or = 500 mg/dL WBC (Bld) [#/Vol] 9.9 10*3/uL 4.4-11.0 [facility] Blood erythrocytes count (nu mber/volume)Ordered By: Berenice Pittman on 07-23-2023 RBC (Bld) [#/Vol] 5.94 10*6/uL 4.6-6.2 [facility] Blood hemoglobin measurement (mass/volume)Ordered By: Berenice Pittman on 07-23-2023 Hemoglobin (Bld) [Mass/Vol] 16.9 g/dL 13.0-16.5 [facility] Blood lymphocytes/100 leukoc ytesOrdered By: Berenice Pittman on 07-23-2023 Lymphocytes/100 WBC (Bld) 27.5 % 19-41 [facility] Blood monocytes/100 leukocyt esOrdered By: Berenice Pittman on 07-23-2023 Monocytes/100 WBC (Bld) 7.2 % 0-10 [facility] Blood platelet mean volumeOr dered By: Berenice Pittman on 07-23-2023 Platelet mean volume (Bld) [Entitic vol] 9.9 fL 6.2-12.0 [facility] Determination of erythrocyte mean corpuscular volume (MCV)Ordered By: Berenice Pittman on 07-23-2023 MCV (RBC) [Entitic vol] 84.5 fL 80-94 [facility] Hematocrit Auto (Bld) [Volum e fraction]Ordered By: Berenice Pittman on 07-23-2023 Hematocrit (Bld) [Volume fraction] 50.2 % 40-54 [facility] - Chemistry and C hemistry - challengeOrdered By: Berenice Pittman on 07-23-2023 ALP [Catalytic activity/Vol] 90 U/L 45-117 [facility] ALT [Catalytic activity/Vol] 82 U/L 16-61 [facility] CO2 [Moles/Vol] 23.0 mmol/L 21.0-32.0 [facility] Globulin (S) [Mass/Vol] 3.5 g/dL 2.2-4.2 [facility] Urea nitrogen/Creatinine [Mass ratio] 18.9 mg/mg 10-20 [facility] - Hematology and Cell countsOrdered By: Berenice Pittman on 07-23-2023 Erythrocyte distribution width (RBC) [Entitic vol] 37.4 fL 35.1-43.9 [facility] Erythrocyte distribution width (RBC) [Ratio] 12.4 % 11.6-14.6 [facility] Immature granulocytes/100 WBC (Bld) 1.400 % 0.0-0.9 [facility] Comment on above: IG% - Immature Granu locytes (promyelocytes, myelocytes and metamyelocytes) > 1% indicates that a LEFT SHIFT is Present. MCH (RBC) [Entitic mass] 28.5 pg 27.0-32.0 [facility] Nucleated RBC/100 WBC (Bld) [Ratio] 0 % 0-5 [facility] - Hematology and Cell countson 07-23-2023 HbA1c (Bld) [Mass fraction] 12.2 % 4.2-6.3 [facility] MCHC Auto (RBC) [Mass/Vol]Or dered By: Berenice Pittman on 07-23-2023 MCHC (RBC) [Mass/Vol] 33.7 g/dL 32-36 [facility] No Panel InformationOrdered By: Berenice Pittman on 07-23-2023 Estimated GFR (MDRD) Amer 139 mL/min >60 [facility] Comment on above: GFR Calc Estimated GFR (MDRD) Non-Af Amer 115 mL/min >60 [facility] Comment on above: Non- GFR Calc Prostate Specific Antigen Screen 0.40 ng/mL 0.00-4.00 [facility] Comment on above: This test was perfor med using the TPSA assay method for the[facility] system. Values obtained with differentassay methods cannot be used interchangably.When changing PSA assays in the course of monitoring apatient, additional sequential testing should be carriedout to confirm baseline values. Platelets bldOrdered By: Geovanny Pittman on 07-23-2023 Platelets (Bld) [#/Vol] 245 10*3/uL 150-450 [facility] Serum or plasma albumin lee urement (mass/volume)Ordered By: Berenice Pittman on 07-23-2023 Albumin [Mass/Vol] 4.5 g/dL 3.2-5.0 [facility] Serum or plasma albumin/glob ulin mass ratioOrdered By: Berenice Pittman on 07-23-2023 Albumin/Globulin [Mass ratio] 1.3 {ratio} 0.9-2.4 [facility] Serum or plasma calcium lee urement (mass/volume)Ordered By: Berenice Pittman on 07-23-2023 Calcium [Mass/Vol] 9.9 mg/dL 8.5-10.1 [facility] Serum or plasma cholesterol in HDL measurement (mass/volume)Ordered By: Berenice Pittman on 07-23-2023 Cholesterol in HDL [Mass/Vol] 46 mg/dL >40 [facility] Comment on above: The drugs N-Acetylcy steine and Metamizole may falsely depress this assay. Reference Range HDL <40 mg/dL Low HDL Cholesterol HDL >or= 60 mg/dL High HDL Cholesterol Serum or plasma cholesterol in VLDL measurement (mass/volume)Ordered By: Berenice Pittman on 07-23-2023 Cholesterol in VLDL [Mass/Vol] 45 mg/dL 5-40 [facility] Serum or plasma creatinine m easurement (mass/volume)Ordered By: Berenice Pittman on 07-23-2023 Creatinine [Mass/Vol] 0.74 mg/dL 0.70-1.30 [facility] Comment on above: The validity of the calculated GFR & GFRAA in patients over 70 years has not been determined. Clinical correlation is essential. Serum or plasma low density lipoprotein (LDL) cholesterol measurement (mass/volume)Ordered By: Berenice Pittman on 07-23-2023 Cholesterol in LDL [Mass/Vol] 39 mg/dL 0-130 [facility] [facility] Serum or plasma urea nitroge n measurement (mass/volume)Ordered By: Berenice Pittman on 07-23-2023 Urea nitrogen [Mass/Vol] 14 mg/dL 7-18 [facility] Thin prep Papanicolaou smear with manual screeningOrdered By: Berenice Pittman on 07-23-2023 Thin prep Papanicolaou smear with manual screening 37 U/L 1537 [facility] Thin prep Papanicolaou smear with manual screening 7 - [facility] Absolute lymphocyte counton 06-27-2022 Lymphocytes Auto (Unsp spec) [#/Vol] 1.56 10*3/uL 0.83-4.51 [facility] Work Phone: Basophil percentageon 2021 Basophils/100 WBC (Bld) 0.8 % 0-1 [facility] Work Phone: Bilirubin [Mass/Vol] 0.60 mg/dL 0.20-1.00 [facility] Work Phone: Comment on above: For patients on eltr ombopag therapy, use of Dimension [place] TBIL is not recommended. Chloride [Moles/Vol] 100 mmol/L 98-107 [facility] Work Phone: Cholesterol [Mass/Vol] 121 mg/dL <200 [facility] Work Phone: Comment on above: <200 mg/dL Desirable 200-240 mg/dL Borderline >240 mg/dL High Risk Eosinophils/100 WBC (Bld) 3.8 % 0-5 [facility] Work Phone: Glucose [Mass/Vol] 316 mg/dL 74-106 [facility] Work Phone: Comment on above: Glucose result great er than or equal to 200 mg/dLsuggests DIABETES MELLITUS per A.D.A. criteria. Neutrophils (Bld) [#/Vol] 3.5 10*3/uL 2.0-7.7 [facility] Work Phone: Neutrophils/100 WBC (Bld) 57.5 % 47-70 [facility] Work Phone: Potassium [Moles/Vol] 4.3 mmol/L 3.5-5.1 [facility] Work Phone: Protein [Mass/Vol] 7.8 g/dL 6.4-8.2 [facility] Work Phone: Sodium [Moles/Vol] 133 mmol/L 136-145 [facility] Work Phone: Triglyceride [Mass/Vol] 365 mg/dL <199 [facility] Work Phone: Comment on above: The drugs N-Acetylcy steine and Metamizole may falsely depress this assay.Serum Triglycerides Reference Interval Normal <150 mg/dL Borderline high 150 - 199 mg/dL High 200 - 499 mg/dL Very High > or = 500 mg/dL WBC (Bld) [#/Vol] 6.1 10*3/uL 4.4-11.0 [facility] Work Phone: Blood erythrocytes count (nu mber/volume)on 06-27-2022 RBC (Bld) [#/Vol] 5.55 10*6/uL 4.6-6.2 [facility] Work Phone: Blood hemoglobin measurement (mass/volume)on 06-27-2022 Hemoglobin (Bld) [Mass/Vol] 15.7 g/dL 13.0-16.5 [facility] Work Phone: Blood lymphocytes/100 leukoc yteson 06-27-2022 Lymphocytes/100 WBC (Bld) 25.6 % 19-41 [facility] Work Phone: Blood monocytes/100 leukocyt eson 06-27-2022 Monocytes/100 WBC (Bld) 10.3 % 0-10 [facility] Work Phone: Blood platelet mean volumeon 06-27-2022 Platelet mean volume (Bld) [Entitic vol] 9.9 fL 6.2-12.0 [facility] Work Phone: Determination of erythrocyte mean corpuscular volume (MCV)on 06-27-2022 MCV (RBC) [Entitic vol] 83.2 fL 80-94 [facility] Work Phone: Hematocrit Auto (Bld) [Volum e fraction]on 06-27-2022 Hematocrit (Bld) [Volume fraction] 46.2 % 40-54 [facility] Work Phone: Laboratory - Chemistry and C hemistry - challengeon 06-27-2022 ALP [Catalytic activity/Vol] 92 U/L 45-117 [facility] Work Phone: ALT [Catalytic activity/Vol] 91 U/L 16-61 [facility] Work Phone: CO2 [Moles/Vol] 28.0 mmol/L 21.0-32.0 [facility] Work Phone: Globulin (S) [Mass/Vol] 3.6 g/dL 2.2-4.2 [facility] Work Phone: Urea nitrogen/Creatinine [Mass ratio] 19.4 mg/mg 10-20 [facility] Work Phone: Laboratory - Hematology and Cell countson 06-27-2022 Erythrocyte distribution width (RBC) [Entitic vol] 39.0 fL 35.1-43.9 [facility] Work Phone: Erythrocyte distribution width (RBC) [Ratio] 12.8 % 11.6-14.6 [facility] Work Phone: Immature granulocytes/100 WBC (Bld) 2.000 % 0.0-0.9 [facility] Work Phone: Comment on above: IG% - Immature Granu locytes (promyelocytes, myelocytes and metamyelocytes) > 1% indicates that a LEFT SHIFT is Present. MCH (RBC) [Entitic mass] 28.3 pg 27.0-32.0 [facility] Work Phone: Nucleated RBC/100 WBC (Bld) [Ratio] 0 % 0-5 [facility] Work Phone: MCHC Auto (RBC) [Mass/Vol]on 06-27-2022 MCHC (RBC) [Mass/Vol] 34.0 g/dL 32-36 [facility]: No Panel Informationon 06-27 Estimated GFR (MDRD) Amer 115 mL/min >60 [facility] Work Phone: Comment on above: GFR Calc Estimated GFR (MDRD) Non-Af Amer 95 mL/min >60 [facility] Work Phone: Comment on above: Non- GFR Calc Prostate Specific Antigen Screen 0.43 ng/mL 0.00-4.00 [facility] Work Phone: Comment on above: This test was perfor med using the TPSA assay method for the[employer] chemistry system. Values obtained with differentassay methods cannot be used interchangably.When changing PSA assays in the course of monitoring apatient, additional sequential testing should be carriedout to confirm baseline values. Platelets bldon 06-27-2022 Platelets (Bld) [#/Vol] 203 10*3/uL 150-450 [facility] Work Phone: Serum or plasma albumin lee urement (mass/volume)on 06-27-2022 Albumin [Mass/Vol] 4.2 g/dL 3.2-5.0 [facility] Work Phone: Serum or plasma albumin/glob ulin mass ratioon 06-27-2022 Albumin/Globulin [Mass ratio] 1.2 {ratio} 0.9-2.4 [facility] Work Phone: Serum or plasma calcium lee urement (mass/volume)on 06-27-2022 Calcium [Mass/Vol] 9.7 mg/dL 8.5-10.1 [facility] Work Phone: Serum or plasma cholesterol in HDL measurement (mass/volume)on 06-27-2022 Cholesterol in HDL [Mass/Vol] 39 mg/dL >40 [facility] Work Phone: Comment on above: The drugs N-Acetylcy steine and Metamizole may falsely depress this assay. Reference Range HDL <40 mg/dL Low HDL Cholesterol HDL >or= 60 mg/dL High HDL Cholesterol Serum or plasma cholesterol in VLDL measurement (mass/volume)on 06-27-2022 Cholesterol in VLDL [Mass/Vol] 73 mg/dL 5-40 [facility] Work Phone: Serum or plasma creatinine m easurement (mass/volume)on 06-27-2022 Creatinine [Mass/Vol] 0.88 mg/dL 0.70-1.30 [facility] Work Phone: Comment on above: The validity of the calculated GFR & GFRAA in patients over 70 years has not been determined. Clinical correlation is essential. Serum or plasma low density lipoprotein (LDL) cholesterol measurement (mass/volume)on 06-27-2022 Cholesterol in LDL [Mass/Vol] 9 mg/dL 0-130 [facility] Work Phone: Serum or plasma urea nitroge n measurement (mass/volume)on 06-27-2022 Urea nitrogen [Mass/Vol] 17 mg/dL 7-18 [facility] Work Phone: Thin prep Papanicolaou smear with manual screeningon 06-27-2022 Thin prep Papanicolaou smear with manual screening 39 U/L 15-37 [facility] Work Phone: Thin prep Papanicolaou smear with manual screening 11 15-15 [facility] Work Phone: Whole blood hemoglobin A1c/t otal hemoglobin ratio (mass fraction)on 06-27-2022 HbA1c (Bld) [Mass fraction] 11.8 % 3.8-5.6 [facility] Work Phone: Comment on above: Normal < 5.7 % Predi abetic 5.7 - 6.4 % Diabetic >or= 6.5 % Please note range changes. Interpretation of Borrelia b urgdorferi antibody assayon 2022 B. burgdorferi Ab (S) [Interp] REF LAB [facility] Work Phone: Thin prep Papanicolaou smear with manual screeningon 2022 Thin prep Papanicolaou smear with manual screening Negative Negative [facility] Work Phone: Comment on above: Lyme Antibody Negati veNo laboratory evidence of infection with B. burgdorferi(Lyme disease). Negative results may occur in patientsrecently infected (greater than or equal to 14 days) withB. burgdorferi. If recent infection is suspected, repeattesting on a new sample collected in 7 to 14 days isrecommended.Performed at: [address] [id number] Director: Jabier Ashford PhD, Phone: [phone] Basophil percentageon 2021 Bilirubin [Mass/Vol] 0.40 mg/dL 0.20-1.00 [facility] Work Phone: Comment on above: For patients on eltr ombopag therapy, use of Dimension [place] TBIL is not recommended. Chloride [Moles/Vol] 104 mmol/L 98-107 [facility] Work Phone: Glucose [Mass/Vol] 363 mg/dL 74-106 [facility] Work Phone: Comment on above: Glucose result great er than or equal to 200 mg/dLsuggests DIABETES MELLITUS per A.D.A. criteria. Potassium [Moles/Vol] 4.0 mmol/L 3.5-5.1 [facility] Work Phone: Protein [Mass/Vol] 7.1 g/dL 6.4-8.2 [facility] Work Phone: Sodium [Moles/Vol] 136 mmol/L 136-145 [facility] Work Phone: Laboratory - Chemistry and C hemistry - challengeon 01-07-2022 ALP [Catalytic activity/Vol] 90 U/L 45-117 [facility] Work Phone: ALT [Catalytic activity/Vol] 57 U/L 16-61 [facility] Work Phone: CO2 [Moles/Vol] 25.0 mmol/L 21.0-32.0 [facility] Work Phone: Globulin (S) [Mass/Vol] 3.4 g/dL 2.2-4.2 [facility] Work Phone: Urea nitrogen/Creatinine [Mass ratio] 21.7 mg/mg 10-20 [facility] Work Phone: No Panel Informationon 01-07 Estimated GFR (MDRD) Amer 92 mL/min >60 [facility] Work Phone: Comment on above: GFR Calc Estimated GFR (MDRD) Non-Af Amer 76 mL/min >60 [facility] Work Phone: Comment on above: Non- GFR Calc Serum or plasma albumin lee urement (mass/volume)on 01-07-2022 Albumin [Mass/Vol] 3.7 g/dL 3.2-5.0 [facility] Work Phone: Serum or plasma albumin/glob ulin mass ratioon 01-07-2022 Albumin/Globulin [Mass ratio] 1.1 {ratio} 0.9-2.4 [facility] Work Phone: Serum or plasma calcium lee urement (mass/volume)on 01-07-2022 Calcium [Mass/Vol] 8.7 mg/dL 8.5-10.1 [facility] Work Phone: Serum or plasma creatinine m easurement (mass/volume)on 01-07-2022 Creatinine [Mass/Vol] 1.06 mg/dL 0.70-1.30 [facility] Work Phone: Comment on above: The validity of the calculated GFR & GFRAA in patients over 70 years has not been determined. Clinical correlation is essential. Serum or plasma urea nitroge n measurement (mass/volume)on 01-07-2022 Urea nitrogen [Mass/Vol] 23 mg/dL 7-18 [facility] Work Phone: Thin prep Papanicolaou smear with manual screeningon 01-07-2022 Thin prep Papanicolaou smear with manual screening 28 U/L 15-37 [facility] Work Phone: Thin prep Papanicolaou smear with manual screening 7 5-15 [facility] Work Phone: Whole blood hemoglobin A1c/t otal hemoglobin ratio (mass fraction)on 01-07-2022 HbA1c (Bld) [Mass fraction] 11.5 % 3.8-5.6 [facility] Work Phone: Comment on above: Normal < 5.7 % Predi abetic 5.7 - 6.4 % Diabetic >or= 6.5 % Please note range changes. Bacteria identified Cx Nom ( Wound) Wound Culture Staphylococcus aureus [facility] Work Phone: Gram stain for investigation of transfusion reaction Microscopic observation Gram stain Nom (Unsp spec) [facility] Work Phone: Vital Signs Date Time Vital Sign Value Performing Clinician Faci lity 07-23-2023 19:46-0500 Body height 180.34 cm [facility] 07-23-2023 19:46-0500 Body mass index (BMI) [Ratio] 28.5 kg/m2 [facility] 07-23-2023 19:46-0500 Body temperature 97.5 [degF] [facility] 07-23-2023 19:46-0500 Body weight 92.98 kg [facility] 07-23-2023 19:46-0500 Diastolic blood pressure 70 mm[Hg] [facility] 07-23-2023 19:46-0500 Heart rate 88 /min [facility] 07-23-2023 19:46-0500 Respiratory rate 18 /min [facility] 07-23-2023 19:46-0500 SaO2% (BldA) [Mass fraction] 96 % [facility] 07-23-2023 19:46-0500 Systolic blood pressure 115 mm[Hg] [facility] 06-27-2022 18:01-0500 Body height 180.34 cm [facility] Work Phone: 06-27-2022 18:01-0500 Body mass index (BMI) [Ratio] 30.2 kg/m2 [facility] Work Phone: 06-27-2022 18:01-0500 Body temperature 97.5 [degF] [facility] Work Phone: 06-27-2022 18:01-0500 Body weight 98.42 kg [facility] Work Phone: 06-27-2022 18:01-0500 Diastolic blood pressure 70 mm[Hg] [facility] Work Phone: 06-27-2022 18:01-0500 Heart rate 92 /min [facility] Work Phone: 06-27-2022 18:01-0500 Respiratory rate 18 /min [facility] Work Phone: 06-27-2022 18:01-0500 SaO2% (BldA) [Mass fraction] 95 % [facility] Work Phone: 06-27-2022 18:01-0500 Systolic blood pressure 110 mm[Hg] [facility] Work Phone: 04-25-2022 19:07-0400 Body mass index (BMI) [Ratio] 30.2 kg/m2 [facility] Work Phone: 04-25-2022 19:07-0400 Body temperature 97.9 [degF] [facility] Work Phone: 04-25-2022 19:07-0400 Body weight 98.42 kg [facility] Work Phone: 04-25-2022 19:07-0400 Diastolic blood pressure 60 mm[Hg] [facility] Work Phone: 04-25-2022 19:07-0400 Heart rate 121 /min [facility] Work Phone: 04-25-2022 19:07-0400 Respiratory rate 18 /min [facility] Work Phone: 04-25-2022 19:07-0400 SaO2% (BldA) [Mass fraction] 96 % [facility] Work Phone: 04-25-2022 19:07-0400 Systolic blood pressure 118 mm[Hg] [facility] Work Phone: 2022 19:05-0400 Body height 180.34 cm [facility] Work Phone: 2022 19:05-0400 Body mass index (BMI) [Ratio] 30.8 kg/m2 [facility] Work Phone: 2022 19:05-0400 Body temperature 97.9 [degF] [facility] Work Phone: 2022 19:05-0400 Body weight 100.24 kg [facility] Work Phone: 2022 19:05-0400 Diastolic blood pressure 70 mm[Hg] [facility] Work Phone: 2022 19:05-0400 Heart rate 94 /min [facility] Work Phone: 2022 19:05-0400 Respiratory rate 18 /min [facility] Work Phone: 2022 19:05-0400 SaO2% (BldA) [Mass fraction] 95 % [facility] Work Phone: 2022 19:05-0400 Systolic blood pressure 122 mm[Hg] [facility] Work Phone: 01-07-2022 18:54-0400 Body mass index (BMI) [Ratio] 30.8 kg/m2 [facility] Work Phone: 01-07-2022 18:54-0400 Body temperature 97.9 [degF] [facility] Work Phone: 01-07-2022 18:54-0400 Body weight 100.24 kg [facility] Work Phone: 01-07-2022 18:54-0400 Diastolic blood pressure 70 mm[Hg] [facility] Work Phone: 01-07-2022 18:54-0400 Heart rate 94 /min [facility] Work Phone: 01-07-2022 18:54-0400 Respiratory rate 18 /min [facility] Work Phone: 01-07-2022 18:54-0400 SaO2% (BldA) [Mass fraction] 95 % [facility] Work Phone: 01-07-2022 18:54-0400 Systolic blood pressure 122 mm[Hg] [facility] Work Phone: Encounters Encounter Date Encounter Type Care Provider Facility Start: 05-25-2025 End: 05-25-2025 Emergency department patient visit Hemal Tucker Facility:[facility] Start: 05-24-2025 End: 05-24-2025 ambulatory Berenice Zain PHILOSOPHY LECTURER Facility:[facility] Start: 07-27-2024 End: 07-27-2024 ambulatory Berenice Zain PHILOSOPHY LECTURER Facility:[facility] Start: 07-23-2023 End: 07-23-2023 ambulatory [facility] Work Phone: Start: 07-23-2023 End: 07-23-2023 Patient encounter procedure [facility], Specimen Work Phone: Start: 06-27-2022 End: 06-27-2022 ambulatory [facility] Work Phone: Start: 06-27-2022 End: 06-27-2022 Patient encounter procedure [facility] Specimen Start: 2022 End: 2022 Patient encounter procedure [facility] Specimen Start: 01-07-2022 End: 01-07-2022 Patient encounter procedure [facility] Spec[facility] Start: 06-22-2021 Patient encounter status [facility] Procedures Date Procedure Procedure Detail Performing Clinician Investigation of transfusion reaction Microbial culture, routine Plan of Treatment Date Care Activity Detail Author Start: 2022 Measurement of Borre mendoza burgdorferi antibody [facility] Work Phone: Start: 2022 [facility] Work Phone: Microscopic observat ion [Identifier] in Unspecified specimen by Gram stain Gram Stain [facility] Work Phone: Wound Culture Wound Culture [facility] Work Phone: Payers Date Payer Category Payer Self-pay [id number] 2024 Unknown [id number] Private Health Insurance [facility] [id number] Unknown [id number] Unknown [id number] Unknown [id number] Social History Date Type Detail Facility Start: 10-25-2020 End: 10-25-2020 Tobacco smoking status NHIS Unknown if ever smoked [facility] Start: 1965 Sex Assigned At Male [facility] Medical Equipment Procedure Code Equipment Code Equipment Origin al Text Equipment Identifier Dates Blood Sugar Diagnostic (Accu-Chek Smartview Test Strip) strip Start: 12-17-2021 Lancets ([facility]Ch ek Fastclix [facility] Drum[facility] Start: 12-23-2019 lancing device w ith lancets [...] Drum) misc Start: 12-23-2019 [facility] Start: 06-19-2018 Blood Sugar Diagnostic [...] Drum) misc Start: 07-23-2023 [facility] Start: 06-19-2018 Blood Sugar Diagnostic [...] 07-23-2023 Lancets (Accu-Ch ek Fastclix Lancet Drum) [facility] Start: 12-23-2019 End: 07-23-2023 Evaluation note Note Date & Type Note Facility Evaluation note Diagnosis Onset Date [id number] acute Peripheral neuropathy acute Cellulitis of right lower leg acute [id number] acute [facility] Work Phone: Evaluation note Note Date & Type Note Facility Evaluation note Diagnosis Onset Date Bronchitis acute Right acute otitis media acu te Sinusitis acute Diabetes type 2, uncontrolled acute Hypertension chronic [facility] Work Phone: Evaluation note Note Date & Type Note Facility Evaluation note Diagnosis Onset Date Anxiety acute Diabetes type 2, uncontrolled acute Hyperlipidemia LDL goal <130 acute [facility] Work Phone: Chief Complaint and Reason for Visit Chief Complaint I&D R) infected 2nd toe Cellulitis/Wound care W/R leg Reason for Visit [id number] Peripheral neuropathy Cellulitis of right lower leg [id number] Chief Complaint Sinus cough X4 days medication [...] Active Member Role Status Dates Berenice Pittman PHILOSOPHY LECTURER, PHILOSOPHY LECTURER-C Primary Care Provider Active Team Status: Inactive Member Role Status Dates Berenice Pittman NP, KITTY-C Attending Provider, Referring Provider Active Team Status: Inactive Member Role Status Dates Berenice Pittman PHILOSOPHY LECTURER, PHILOSOPHY LECTURER-C Primary Care Provider, Attend ing Provider Active (unrecognized sect ion and content) No Status Records Found INFORMATION SOURCE (unrecogn ized section and content) DATE CREATED AUTHOR 05/26/2025 [facility] FOR RECORDS PERTAINING TO PATIENTS WHO ARE [...] BE BASED ON THE PRIMARY CLINICAL RECORDS. [facility] [employer], [facility]. provides no warranty or guarantee of the accuracy or completeness of information in this document.
--- NOTE | 2025-07-06 14:51 | US_ITS ---
PROCEDURE: TESTICULAR WITH ARTERIAL FLOW 07/06/2025 REASON FOR EXAM: ENGORGED VEINS SCROTUM TECHNIQUE: Procedure Code: USTES Modality: US Procedure: TESTICULAR WITH ARTERIAL FLOW FINDINGS: RIGHT testicle: 4.3 x 3.1 x 1.9 cm Homogeneous echotexture. No intratesticular mass. Adequate arterial and venous waveforms. Right epididymis: Unremarkable. LEFT testicle: 4.2 x 2.9 x 1.7 cm Homogeneous echotexture. No intratesticular mass. Adequate arterial and venous waveforms. Left epididymis: Unremarkable. Other findings: No hydrocele or large varicocele. Prominent vessels seen surrounding both testicles suggesting bilateral varicoceles. No large hydroceles. US/Testicular with Arterial Flow IMPRESSION: 1. Probable bilateral varicoceles. 2. Otherwise unremarkable ultrasound of the testicles with adequate blood flow. Reading Location: [facility]
== END | disposition home or self-care (01) ==
LOC: US 14:48
PROVIDERS: PCP Nurse Practitioner; Referring Provider Nurse Practitioner; Visit Provider Nurse Practitioner
DX: N50.82 Scrotal pain (principal)
CPT/HCPCS: 76870; 93976

== ENCOUNTER → 2025-07-11 | Outpatient (CLI) | payer BC, SELFPAY ==
--- OUTSIDE RECORDS SUMMARY | 2025-07-11 22:03 | XMS RPT_ITS | CCD ---
Author Organization [facility] Care Team Providers Care Pattern Fitter Name Role Phone Zain SURGICAL FIRST ASSISTANT, Berenice Attending Unavailable Zain SURGICAL FIRST ASSISTANT, Berenice Primary Care Unavailable Zain TANG, Berenice Attending Unavailable Zain SURGICAL FIRST ASSISTANT, Berenice Primary Care Unavailable Hemal Tucker Attending Unavailable Zain SURGICAL FIRST ASSISTANT, Berenice Primary Care Unavailable Allergies Allergy Classification Reported Allergen(s) Allergy Type Date of Onset Reaction(s) Facility (4 sources) Amoxicillin Drug Allergy 06-19-2018 Swelling [facility] (4 sources) atorvastatin Drug Allergy 06-19-2018 did not work [facility] (4 sources) Clavulanate Drug Allergy 06-19-2018 [facility] (1 source) Amoxicillin Drug Allergy 05-25-2025 [facility] Repository (1 source) atorvastatin Drug Allergy 05-25-2025 [facility] Repository (1 source) Clavulanate Drug Allergy 05-25-2025 [facility] Repository Medications Current Medications Medication Drug Class(es) [...] disease (1 source) Atherosclerotic heart disease of knik coronary artery without angina pectoris; Translations: [Atherosclerotic heart disease of knik coronary artery without angina pectoris] Onset: 05-25-2025 [...] Interpretation Reference Range Facility CRP, High Sensitivity [id number] on 05-26-2025 CRP, HIGH SENS < 0.15 Normal 0.00-3.00 [facility] Comment on above: Result Comment: Rela tive Risk for Future Cardiovascular Event Low <1.00 Average 1.00 - 3.00 High >3.00 Performed at: [address] [id number] Short Story Writer: Jabier Ashford PhD, Phone: [phone] Performed By: #### L 3100.7870 #### [facility] Laboratory [address] [place], [place], [id number] Basic Metabolic Profile (BMP )on 05-25-2025 BUN/CRE 30.6 RATIO High 10-20 [facility] Comment on above: Performed By: #### L 500.4050, L501.9985, L500.4100, L100.0100, L501.5200, L501.9910 #### [facility] Laboratory [address] [place], [place], [id number] ([phone]) Calcium [Mass/Vol] 9.7 mg/dL Normal 7.6-11.0 [facility] Comment on above: Performed By: #### L 500.4050, L501.9985, L500.4100, L100.0100, L501.5200, L501.9910 #### [facility] [address] [place], [address] Chloride [Moles/Vol] 101 mmol/L Normal 98-108 [facility] Comment on above: Performed By: #### L 500.4050, L501.9985, L500.4100, L100.0100, L501.5200, L501.9910 #### [facility] [address] [place], [address] CO2 [Moles/Vol] 20.2 mmol/L Low 21.0-32.0 [facility] Comment on above: Performed By: #### L 500.4050, L501.9985, L500.4100, L100.0100, L501.5200, L501.9910 #### [facility] [address] [place], [address] Creatinine [Mass/Vol] 0.68 mg/dL Low 0.70-1.20 [facility] Comment on above: Performed By: #### L 500.4050, L501.9985, L500.4100, L100.0100, L501.5200, L501.9910 #### [facility] [address] [place], [address] ECRCL 121.50 ml/min Normal 50-250 [facility] Comment on above: Performed By: #### L 500.4050, L501.9985, L500.4100, L100.0100, L501.5200, L501.9910 #### [facility] [address] [place], [address] GAP 15 Normal 5-15 [facility] Comment on above: Performed By: #### L 500.4050, L501.9985, L500.4100, L100.0100, L501.5200, L501.9910 #### [facility] [address] [place], [address] GFR/1.73 sq M.predicted among non-blacks MDRD (S/P/Bld) [Vol rate/Area] 106 mL/min/{1.73_m2} Normal >60 [facility] Comment on above: Result Comment: mL/m in/1.73m2 CKD-EPI Creatinine Equation (2020) Performed By: #### L 500.4050, L501.9985, L500.4100, L100.0100, L501.5200, L501.9910 #### [facility] [address] [place], [address] Glucose [Mass/Vol] 202 mg/dL High 70-99 [facility] Comment on above: Performed By: #### L 500.4050, L501.9985, L500.4100, L100.0100, L501.5200, L501.9910 #### [facility] [address] [place], [address] Potassium [Moles/Vol] 4.3 mmol/L Normal 3.3-5.1 [facility] Comment on above: Result Comment: Hemo lysis present, Results??could be affected. ?? Performed By: #### L 500.4050, L501.9985, L500.4100, L100.0100, L501.5200, L501.9910 #### [facility] [address] [place], [address] Sodium [Moles/Vol] 135 mmol/L Normal 133-145 [facility] Comment on above: Performed By: #### L 500.4050, L501.9985, L500.4100, L100.0100, L501.5200, L501.9910 #### [facility] [address] [place], [address] Urea nitrogen [Mass/Vol] 21 mg/dL High 4-19 [facility] Comment on above: Performed By: #### L 500.4050, L501.9985, L500.4100, L100.0100, L501.5200, L501.9910 #### [facility] [address] [place], [address] CBC W/Diff, Automatedon 11- Absolute Lymph 2.82 X10 3/uL Normal 0.83-4.51 [facility] Comment on above: Performed By: #### L 500.4050, L501.9985, L500.4100, L100.0100, L501.5200, L501.9910 #### [facility] [address] [place], [address] Absolute Neut 5.9 X10 3/uL Normal 2.0-7.7 [facility] Comment on above: Performed By: #### L 500.4050, L501.9985, L500.4100, L100.0100, L501.5200, L501.9910 #### [facility] [address] [place], [address] Basophils/100 WBC (Bld) 1.1 % High 0-1 [facility] Comment on above: Performed By: #### L 500.4050, L501.9985, L500.4100, L100.0100, L501.5200, L501.9910 #### [facility] [address] [place], [address] Eosinophils/100 WBC (Bld) 2.9 % Normal 0-5 [facility] Comment on above: Performed By: #### L 500.4050, L501.9985, L500.4100, L100.0100, L501.5200, L501.9910 #### [facility] [address] [place], [address] Erythrocyte distribution width (RBC) [Ratio] 12.3 % Normal 11.6-14.6 [facility] Comment on above: Performed By: #### L 500.4050, L501.9985, L500.4100, L100.0100, L501.5200, L501.9910 #### [facility] [address] [place], [address] Hematocrit (Bld) [Volume fraction] 47.2 % Normal 40-54 [facility] Comment on above: Performed By: #### L 500.4050, L501.9985, L500.4100, L100.0100, L501.5200, L501.9910 #### [facility] [address] [place], [address] Hemoglobin (Bld) [Mass/Vol] 15.9 g/dL Normal 13.0-16.5 [facility] Comment on above: Performed By: #### L 500.4050, L501.9985, L500.4100, L100.0100, L501.5200, L501.9910 #### [facility] [address] [place], [address] IG% 1.700 High 0.0-0.9 [facility] Comment on above: Result Comment: IG% - Immature Granulocytes (promyelocytes, myelocytes and metamyelocytes) > 1% indicates that a LEFT SHIFT is Present. Performed By: #### L 500.4050, L501.9985, L500.4100, L100.0100, L501.5200, L501.9910 #### [facility] [address] [place], [address] Lymphocytes/100 WBC (Bld) 28.2 % Normal 19-41 [facility] Comment on above: Performed By: #### L 500.4050, L501.9985, L500.4100, L100.0100, L501.5200, L501.9910 #### [facility] [address] [place], [address] MCH (RBC) [Entitic mass] 28.8 pg Normal 27.0-32.0 [facility] Comment on above: Performed By: #### L 500.4050, L501.9985, L500.4100, L100.0100, L501.5200, L501.9910 #### [facility] [address] [place], [address] MCHC (RBC) [Mass/Vol] 33.7 g/dL Normal 32-36 [facility] Comment on above: Performed By: #### L 500.4050, L501.9985, L500.4100, L100.0100, L501.5200, L501.9910 #### [facility] [address] [place], [address] MCV (RBC) [Entitic vol] 85.5 fL Normal 80-94 [facility] Comment on above: Performed By: #### L 500.4050, L501.9985, L500.4100, L100.0100, L501.5200, L501.9910 #### [facility] [address] [place], [address] Monocytes/100 WBC (Bld) 6.9 % Normal 0-10 [facility] Comment on above: Performed By: #### L 500.4050, L501.9985, L500.4100, L100.0100, L501.5200, L501.9910 #### [facility] [address] [place], [address] Neutrophils/100 WBC (Bld) 59.2 % Normal 47-70 [facility] Comment on above: Performed By: #### L 500.4050, L501.9985, L500.4100, L100.0100, L501.5200, L501.9910 #### [facility] [address] [place], [address] Nucleated RBC (Bld) [#/Vol] 0 10*3/uL Normal 0-5 [facility] Comment on above: Performed By: #### L 500.4050, L501.9985, L500.4100, L100.0100, L501.5200, L501.9910 #### [facility] [address] [place], [address] Platelet mean volume (Bld) [Entitic vol] 9.5 fL Normal 6.2-12.0 [facility] Comment on above: Performed By: #### L 500.4050, L501.9985, L500.4100, L100.0100, L501.5200, L501.9910 #### [facility] [address] [place], [address] Platelets (Bld) [#/Vol] 228 10*3/uL Normal 150-450 [facility] Comment on above: Performed By: #### L 500.4050, L501.9985, L500.4100, L100.0100, L501.5200, L501.9910 #### [facility] [address] [place], [address] RBC (Bld) [#/Vol] 5.52 10*6/uL Normal 4.6-6.2 [facility] Comment on above: Performed By: #### L 500.4050, L501.9985, L500.4100, L100.0100, L501.5200, L501.9910 #### [facility] [address] [place], [address] RDW SD 38.2 fl Normal 35.1-43.9 [facility] Comment on above: Performed By: #### L 500.4050, L501.9985, L500.4100, L100.0100, L501.5200, L501.9910 #### [facility] [address] [place], [address] WBC (Bld) [#/Vol] 10.0 10*3/uL Normal 4.4-11.0 [facility] Comment on above: Performed By: #### L 500.4050, L501.9985, L500.4100, L100.0100, L501.5200, L501.9910 #### [facility] Laboratory [address] [place], [address] Chest 1 View (Portable)on Chest 1 View (Portable) [facility] Imaging Services [address] [address] Chest 1 View (Portable) MR#: [id number] Acct: [id number] Name: EMILY GONZALEZ R Rep #: [id number] : 1965 M 60 From: Rogerio charles MD PCP: LYNETTE Corado Status: REG ER Study: Chest 1 View (Portable) Date of Exam: 05/25/25 Exam# [id number] Ordering Dr: Hemal Tucker DO PROCEDURE: CHEST [...] suggestive of mild linear atelectasis. Reading Location: [place] [address] CC: SURGICAL FIRST ASSISTANT-C Berenice Pittmna; Dr. Hemal Tucker DO Waste Baler: Signed Normal [facility] Emergency Department Summary on 05-25-2025 Emergency Department Summary [facility] Medical Records Department [address] [place] [address] Emergency Department Summary 05/25/25 MR#: [id number] Acct: [id number] Name: EMILY GONZALEZ R Rep #: [id number] : 1965 60 From: Hemal Tucker DO [...] he has not had a stress test. [facility] Medical History CVD (cardiovascular disease) Anxiety Diabetes [...] follow commands knew that he was at [facility] years 2024 Skin: Warm, dry, intact [...] troponins in (more content not included)... Normal [facility] L501.4021on 05-25-2025 Trop T High Sen 21 ng/L Normal <=22 [facility] Comment on above: Performed By: #### L 500.4050, L501.9985, L500.4100, L100.0100, L501.5200, L501.9910 #### [facility] Laboratory [address] [place], [address] Troponin T HS 2 HRon 025 Trop T High Sen Normal <=22 [facility] Comment on above: Result Comment: Phil velásquez via OM: Ordered Performed By: #### L 499.0042 #### [facility] Laboratory [address] [place], [address] Troponin T HS 4 HRon 025 Trop T High Sen Normal <=22 [facility] Comment on above: Result Comment: Phil velásquez via OM: Ordered Performed By: #### L 500.4050, L501.9985, L500.4100, L100.0100, L501.5200, L501.9910 #### [facility] [address] [place], [address] CBC W/Diff, Automatedon 05-14 Absolute Lymph 2.98 X10 3/uL Normal 0.83-4.51 [facility] Comment on above: Performed By: #### L 500.4050, L501.9985, L500.4100, L100.0100, L501.5200, L501.9910 #### [facility] Laboratory [address] [place], [address] Absolute Neut 6.2 X10 3/uL Normal 2.0-7.7 [facility] Comment on above: Performed By: #### L 500.4050, L501.9985, L500.4100, L100.0100, L501.5200, L501.9910 #### [facility] [address] [place], [address] Basophils/100 WBC (Bld) 0.9 % Normal 0-1 [facility] Comment on above: Performed By: #### L 500.4050, L501.9985, L500.4100, L100.0100, L501.5200, L501.9910 #### [facility] [address] [place], [address] Eosinophils/100 WBC (Bld) 2.3 % Normal 0-5 [facility] Comment on above: Performed By: #### L 500.4050, L501.9985, L500.4100, L100.0100, L501.5200, L501.9910 #### [facility] [address] [place], [address] Erythrocyte distribution width (RBC) [Ratio] 12.1 % Normal 11.6-14.6 [facility] Comment on above: Performed By: #### L 500.4050, L501.9985, L500.4100, L100.0100, L501.5200, L501.9910 #### [facility] [address] [place], [address] Hematocrit (Bld) [Volume fraction] 46.2 % Normal 40-54 [facility] Comment on above: Performed By: #### L 500.4050, L501.9985, L500.4100, L100.0100, L501.5200, L501.9910 #### [facility] [address] [place], [address] Hemoglobin (Bld) [Mass/Vol] 15.8 g/dL Normal 13.0-16.5 [facility] Comment on above: Performed By: #### L 500.4050, L501.9985, L500.4100, L100.0100, L501.5200, L501.9910 #### [facility] [address] [place], [address] IG% 1.700 High 0.0-0.9 [facility] Comment on above: Result Comment: IG% - Immature Granulocytes (promyelocytes, myelocytes and metamyelocytes) > 1% indicates that a LEFT SHIFT is Present. Performed By: #### L 500.4050, L501.9985, L500.4100, L100.0100, L501.5200, L501.9910 #### [facility] [address] [place], [address] Lymphocytes/100 WBC (Bld) 28.5 % Normal 19-41 [facility] Comment on above: Performed By: #### L 500.4050, L501.9985, L500.4100, L100.0100, L501.5200, L501.9910 #### [facility] [address] [place], [address] MCH (RBC) [Entitic mass] 28.6 pg Normal 27.0-32.0 [facility] Comment on above: Performed By: #### L 500.4050, L501.9985, L500.4100, L100.0100, L501.5200, L501.9910 #### [facility] [address] [place], [address] MCHC (RBC) [Mass/Vol] 34.2 g/dL Normal 32-36 [facility] Comment on above: Performed By: #### L 500.4050, L501.9985, L500.4100, L100.0100, L501.5200, L501.9910 #### [facility] [address] [facility] [place], [address] MCV (RBC) [Entitic vol] 83.7 fL Normal 80-94 [facility] Comment on above: Performed By: #### L 500.4050, L501.9985, L500.4100, L100.0100, L501.5200, L501.9910 #### [facility] [address] [place], [address] Monocytes/100 WBC (Bld) 7.2 % Normal 0-10 [facility] Comment on above: Performed By: #### L 500.4050, L501.9985, L500.4100, L100.0100, L501.5200, L501.9910 #### [facility] [address] [place], [address] Neutrophils/100 WBC (Bld) 59.4 % Normal 47-70 [facility] Comment on above: Performed By: #### L 500.4050, L501.9985, L500.4100, L100.0100, L501.5200, L501.9910 #### [facility] [address] [place], [address] Nucleated RBC (Bld) [#/Vol] 0 10*3/uL Normal 0-5 [facility] Comment on above: Performed By: #### L 500.4050, L501.9985, L500.4100, L100.0100, L501.5200, L501.9910 #### [facility] [address] [place], [address] Platelet mean volume (Bld) [Entitic vol] 10.1 fL Normal 6.2-12.0 [facility] Comment on above: Performed By: #### L 500.4050, L501.9985, L500.4100, L100.0100, L501.5200, L501.9910 #### [facility] [address] [place], [address] Platelets (Bld) [#/Vol] 281 10*3/uL Normal 150-450 [facility] Comment on above: Performed By: #### L 500.4050, L501.9985, L500.4100, L100.0100, L501.5200, L501.9910 #### [facility] [address] [place], [address] RBC (Bld) [#/Vol] 5.52 10*6/uL Normal 4.6-6.2 [facility] Comment on above: Performed By: #### L 500.4050, L501.9985, L500.4100, L100.0100, L501.5200, L501.9910 #### [facility] [address] [place], [address] RDW SD 36.6 fl Normal 35.1-43.9 [facility] Comment on above: Performed By: #### L 500.4050, L501.9985, L500.4100, L100.0100, L501.5200, L501.9910 #### [facility] [address] [place], [address] WBC (Bld) [#/Vol] 10.4 10*3/uL Normal 4.4-11.0 [facility] Comment on above: Performed By: #### L 500.4050, L501.9985, L500.4100, L100.0100, L501.5200, L501.9910 #### [facility] [address] [place], [address] Comprehensive Metabolic Prof [facility] 05-24-2025 Albumin [Mass/Vol] 4.7 g/dL Normal 3.4-4.8 [facility] Comment on above: Performed By: #### L 500.4050, L501.9985, L500.4100, L100.0100, L501.5200, L501.9910 #### [facility] [address] [place], [address] Albumin/Globulin [Mass ratio] 1.7 {ratio} Normal 0.9-2.4 [facility] Comment on above: Performed By: #### L 500.4050, L501.9985, L500.4100, L100.0100, L501.5200, L501.9910 #### [facility] [address] [place], [address] ALK PHOS 84 U/L Normal 40-129 [facility] Comment on above: Performed By: #### L 500.4050, L501.9985, L500.4100, L100.0100, L501.5200, L501.9910 #### [facility] [address] [place], [address] ALT [Catalytic activity/Vol] 84 U/L High <=46 [facility] Comment on above: Performed By: #### L 500.4050, L501.9985, L500.4100, L100.0100, L501.5200, L501.9910 #### [facility] [address] [place], [address] AST [Catalytic activity/Vol] 44 U/L High <=37 [facility] Comment on above: Performed By: #### L 500.4050, L501.9985, L500.4100, L100.0100, L501.5200, L501.9910 #### [facility] [address] [place], [address] Bilirubin [Mass/Vol] 0.58 mg/dL Normal 0.00-1.30 [facility] Comment on above: Performed By: #### L 500.4050, L501.9985, L500.4100, L100.0100, L501.5200, L501.9910 #### [facility] [address] [place], [address] BUN/CRE 29.8 RATIO High 10-20 [facility] Comment on above: Performed By: #### L 500.4050, L501.9985, L500.4100, L100.0100, L501.5200, L501.9910 #### [facility] [address] [place], [address] Calcium [Mass/Vol] 9.9 mg/dL Normal 7.6-11.0 [facility] Comment on above: Performed By: #### L 500.4050, L501.9985, L500.4100, L100.0100, L501.5200, L501.9910 #### [facility] [address] [place], [address] Chloride [Moles/Vol] 97 mmol/L Low 98-108 [facility] Comment on above: Performed By: #### L 500.4050, L501.9985, L500.4100, L100.0100, L501.5200, L501.9910 #### [facility] [address] [place], [address] CO2 [Moles/Vol] 23.5 mmol/L Normal 21.0-32.0 [facility] Comment on above: Performed By: #### L 500.4050, L501.9985, L500.4100, L100.0100, L501.5200, L501.9910 #### [facility] [address] [place], [address] Creatinine [Mass/Vol] 0.97 mg/dL Normal 0.70-1.20 [facility] Comment on above: Performed By: #### L 500.4050, L501.9985, L500.4100, L100.0100, L501.5200, L501.9910 #### [facility] [address] [place], [address] GAP 14 Normal 5-15 [facility] Comment on above: Performed By: #### L 500.4050, L501.9985, L500.4100, L100.0100, L501.5200, L501.9910 #### [facility] [address] [place], [address] GFR/1.73 sq M.predicted among non-blacks MDRD (S/P/Bld) [Vol rate/Area] 89 mL/min/{1.73_m2} Normal >60 [facility] Comment on above: Result Comment: mL/m in/1.73m2 CKD-EPI Creatinine Equation (2020) Performed By: #### L 500.4050, L501.9985, L500.4100, L100.0100, L501.5200, L501.9910 #### [facility] [address] [place], [address] Globulin (S) [Mass/Vol] 2.8 g/dL Normal 2.2-4.2 [facility] Comment on above: Performed By: #### L 500.4050, L501.9985, L500.4100, L100.0100, L501.5200, L501.9910 #### [facility] [address] [place], [address] Glucose [Mass/Vol] 243 mg/dL High 70-99 [facility] Comment on above: Performed By: #### L 500.4050, L501.9985, L500.4100, L100.0100, L501.5200, L501.9910 #### [facility] [address] [place], [address] Potassium [Moles/Vol] 4.0 mmol/L Normal 3.3-5.1 [facility] Comment on above: Performed By: #### L 500.4050, L501.9985, L500.4100, L100.0100, L501.5200, L501.9910 #### [facility] [address] [place], [address] Sodium [Moles/Vol] 135 mmol/L Normal 133-145 [facility] Comment on above: Performed By: #### L 500.4050, L501.9985, L500.4100, L100.0100, L501.5200, L501.9910 #### [facility] [address] [place], [address] T PROT 7.5 g/dL Normal 5.9-8.4 [facility] Comment on above: Performed By: #### L 500.4050, L501.9985, L500.4100, L100.0100, L501.5200, L501.9910 #### [facility] [address] [place], [address] Urea nitrogen [Mass/Vol] 29 mg/dL High 4-19 [facility] Comment on above: Performed By: #### L 500.4050, L501.9985, L500.4100, L100.0100, L501.5200, L501.9910 #### [facility] [address] [place], [address] L501.4021on 05-24-2025 Trop T High Sen 23 ng/L High <=22 [facility] Comment on above: Performed By: #### L 500.4050, L501.9985, L500.4100, L100.0100, L501.5200, L501.9910 #### [facility] [facility] [address] [place], [address] Lipid Profileon 05-24-2025 CHOL:HDL 2.89 Normal [facility] Comment on above: Performed By: #### L 500.4050, L501.9985, L500.4100, L100.0100, L501.5200, L501.9910 #### [facility] [address] [place], [address] Cholesterol [Mass/Vol] 115 mg/dL Normal <=200 [facility] Comment on above: Result Comment: Chol esterol level, Desirable <200 mg/dL Borderline high cholesterol 200-239 mg/dL High cholesterol >=240 mg/dL Recommendations of the NCEP Adult Treatment Panel for the following risk-cutoff thresholds for the [place] population. Performed By: #### L 500.4050, L501.9985, L500.4100, L100.0100, L501.5200, L501.9910 #### [facility] [address] [place], [address] Cholesterol in HDL [Mass/Vol] 40 mg/dL Normal [facility] Comment on above: Result Comment: Rosa onal Cholesterol Education Program (NCEP) guidelines: <40 mg/dL: Low HDL-cholesterol (major risk factor for CHD) >= 60 mg/dL: High HDL-cholesterol (negative risk factor for CHD) HDL-cholesterol is affected by a number of factors, e.g. smoking, exercise, hormones, sex and age. Performed By: #### L 500.4050, L501.9985, L500.4100, L100.0100, L501.5200, L501.9910 #### [facility] [address] [place], [address] Cholesterol in LDL [Mass/Vol] 47 mg/dL Normal [facility] Comment on above: Result Comment: Bord lhkece=868-432 mg/dL Higher Pahf=977 mg/dL or greater Shafer Equation 2020 for LDL-C Performed By: #### L 500.4050, L501.9985, L500.4100, L100.0100, L501.5200, L501.9910 #### [facility] [address] [place], [address] Cholesterol in VLDL [Mass/Vol] 34 mg/dL Normal 5-40 [facility] Comment on above: Performed By: #### L 500.4050, L501.9985, L500.4100, L100.0100, L501.5200, L501.9910 #### [facility] [address] [place], [address] Triglyceride [Mass/Vol] 169 mg/dL Normal [facility] Comment on above: Result Comment: The drugs N-Acetylcysteine and Metamizole may falsely depress this assay. Normal range: <150 mg/dL Borderline High: 150-199 mg/dL High: 200-499 mg/dL Very High: >500 mg/dL Performed By: #### L 500.4050, L501.9985, L500.4100, L100.0100, L501.5200, L501.9910 #### [facility] [address] [place], [place], [id number] PSA,Total- Diagnosticon 05-14 PSA, DIAGNOSTIC 0.33 ng/mL Normal 0.00-4.00 [facility] Comment on above: Result Comment: This test [...] 500.4050, L501.9985, L500.4100, L100.0100, L501.5200, L501.9910 #### [facility] [address] [place], [place], [id number] CBC W/Diff, Automatedon 07-14 Absolute Lymph 2.78 X10 3/uL Normal 0.83-4.51 [facility] Comment on above: Performed By: #### L 500.4050, L501.9985, L500.4100, L100.0100, L501.5200, L501.9910 #### [facility] [address] [place], [address] Absolute Neut 6.0 X10 3/uL Normal 2.0-7.7 [facility] Comment on above: Performed By: #### L 500.4050, L501.9985, L500.4100, L100.0100, L501.5200, L501.9910 #### [facility] [address] [place], [address] Basophils/100 WBC (Bld) 1.0 % Normal 0-1 [facility] Comment on above: Performed By: #### L 500.4050, L501.9985, L500.4100, L100.0100, L501.5200, L501.9910 #### [facility] [address] [place], [address] Eosinophils/100 WBC (Bld) 2.6 % Normal 0-5 [facility] Comment on above: Performed By: #### L 500.4050, L501.9985, L500.4100, L100.0100, L501.5200, L501.9910 #### [facility] [address] [place], [address] Erythrocyte distribution width (RBC) [Ratio] 12.3 % Normal 11.6-14.6 [facility] Comment on above: Performed By: #### L 500.4050, L501.9985, L500.4100, L100.0100, L501.5200, L501.9910 #### [facility] [address] [place], [address] Hematocrit (Bld) [Volume fraction] 46.0 % Normal 40-54 [facility] Comment on above: Performed By: #### L 500.4050, L501.9985, L500.4100, L100.0100, L501.5200, L501.9910 #### [facility] [address] [place], [address] Hemoglobin (Bld) [Mass/Vol] 15.5 g/dL Normal 13.0-16.5 [facility] Comment on above: Performed By: #### L 500.4050, L501.9985, L500.4100, L100.0100, L501.5200, L501.9910 #### [facility] [address] [place], [address] IG% 1.800 High 0.0-0.9 [facility] Comment on above: Result Comment: IG% - Immature Granulocytes (promyelocytes, myelocytes and metamyelocytes) > 1% indicates that a LEFT SHIFT is Present. Performed By: #### L 500.4050, L501.9985, L500.4100, L100.0100, L501.5200, L501.9910 #### [facility] [address] [place], [address] Lymphocytes/100 WBC (Bld) 27.7 % Normal 19-41 [facility] Comment on above: Performed By: #### L 500.4050, L501.9985, L500.4100, L100.0100, L501.5200, L501.9910 #### [facility] [address] [place], [address] MCH (RBC) [Entitic mass] 28.2 pg Normal 27.0-32.0 [facility] Comment on above: Performed By: #### L 500.4050, L501.9985, L500.4100, L100.0100, L501.5200, L501.9910 #### [facility] [address] [place], [address] MCHC (RBC) [Mass/Vol] 33.7 g/dL Normal 32-36 [facility] Comment on above: Performed By: #### L 500.4050, L501.9985, L500.4100, L100.0100, L501.5200, L501.9910 #### [facility] [address] [place], [address] MCV (RBC) [Entitic vol] 83.8 fL Normal 80-94 [facility] Comment on above: Performed By: #### L 500.4050, L501.9985, L500.4100, L100.0100, L501.5200, L501.9910 #### [facility] [address] [place], [address] Monocytes/100 WBC (Bld) 7.7 % Normal 0-10 [facility] Comment on above: Performed By: #### L 500.4050, L501.9985, L500.4100, L100.0100, L501.5200, L501.9910 #### [facility] [address] [place], [address] Neutrophils/100 WBC (Bld) 59.2 % Normal 47-70 [facility] Comment on above: Performed By: #### L 500.4050, L501.9985, L500.4100, L100.0100, L501.5200, L501.9910 #### [facility] [address] [place], [address] Nucleated RBC (Bld) [#/Vol] 0 10*3/uL Normal 0-5 [facility] Comment on above: Performed By: #### L 500.4050, L501.9985, L500.4100, L100.0100, L501.5200, L501.9910 #### [facility] [address] [place], [address] Platelet mean volume (Bld) [Entitic vol] 10.3 fL Normal 6.2-12.0 [facility] Comment on above: Performed By: #### L 500.4050, L501.9985, L500.4100, L100.0100, L501.5200, L501.9910 #### [facility] [address] [place], [address] Platelets (Bld) [#/Vol] 238 10*3/uL Normal 150-450 [facility] Comment on above: Performed By: #### L 500.4050, L501.9985, L500.4100, L100.0100, L501.5200, L501.9910 #### [facility] [address] [place], [address] RBC (Bld) [#/Vol] 5.49 10*6/uL Normal 4.6-6.2 [facility] Comment on above: Performed By: #### L 500.4050, L501.9985, L500.4100, L100.0100, L501.5200, L501.9910 #### [facility] [address] [place], [address] RDW SD 37.3 fl Normal 35.1-43.9 [facility] Comment on above: Performed By: #### L 500.4050, L501.9985, L500.4100, L100.0100, L501.5200, L501.9910 #### [facility] [address] [place], [address] WBC (Bld) [#/Vol] 10.1 10*3/uL Normal 4.4-11.0 [facility] Comment on above: Performed By: #### L 500.4050, L501.9985, L500.4100, L100.0100, L501.5200, L501.9910 #### [facility] [address] [place], [address] Comprehensive Metabolic Prof cton 07-27-2024 Albumin [Mass/Vol] 4.1 g/dL Normal 3.2-5.0 [facility] Comment on above: Performed By: #### L 500.4050, L501.9985, L500.4100, L100.0100, L501.5200, L501.9910 #### [facility] [address] [place], [address] Albumin/Globulin [Mass ratio] 1.2 {ratio} Normal 0.9-2.4 [facility] Comment on above: Performed By: #### L 500.4050, L501.9985, L500.4100, L100.0100, L501.5200, L501.9910 #### [facility] [address] [place], [address] ALK P 84 U/L Normal 45-117 [facility] Comment on above: Performed By: #### L 500.4050, L501.9985, L500.4100, L100.0100, L501.5200, L501.9910 #### [facility] [address] [place], [address] ALT [Catalytic activity/Vol] 40 U/L Normal 16-61 [facility] Comment on above: Performed By: #### L 500.4050, L501.9985, L500.4100, L100.0100, L501.5200, L501.9910 #### [facility] [address] [place], [address] AST [Catalytic activity/Vol] 23 U/L Normal 15-37 [facility] Comment on above: Performed By: #### L 500.4050, L501.9985, L500.4100, L100.0100, L501.5200, L501.9910 #### [facility] [address] [place], [address] Bilirubin [Mass/Vol] 0.40 mg/dL Normal 0.20-1.00 [facility] Comment on above: Result Comment: For patients on eltrombopag therapy, use of Dimension [place] TBIL is not recommended. Performed By: #### L 500.4050, L501.9985, L500.4100, L100.0100, L501.5200, L501.9910 #### [facility] [address] [place], [address] BUN/CRE 31.8 RATIO High 10-20 [facility] Comment on above: Performed By: #### L 500.4050, L501.9985, L500.4100, L100.0100, L501.5200, L501.9910 #### [facility] [address] [place], [address] CA,Total 9.6 mg/dL Normal 8.5-10.1 [facility] Comment on above: Performed By: #### L 500.4050, L501.9985, L500.4100, L100.0100, L501.5200, L501.9910 #### [facility] [address] [place], [address] Chloride [Moles/Vol] 102 mmol/L Normal 98-107 [facility] Comment on above: Performed By: #### L 500.4050, L501.9985, L500.4100, L100.0100, L501.5200, L501.9910 #### [facility] [address] [place], [address] CO2 [Moles/Vol] 27.0 mmol/L Normal 21.0-32.0 [facility] Comment on above: Performed By: #### L 500.4050, L501.9985, L500.4100, L100.0100, L501.5200, L501.9910 #### [facility] [address] [place], [address] Creatinine [Mass/Vol] 0.72 mg/dL Normal 0.70-1.30 [facility] Comment on above: Result Comment: The validity of the calculated GFR GFRAA in patients over 70 years has not been determined. Clinical correlation is essential. Performed By: #### L 500.4050, L501.9985, L500.4100, L100.0100, L501.5200, L501.9910 #### [facility] [address] [place], [address] EST GFR - AA 142 mL/min Normal >60 [facility] Comment on above: Result Comment: Afri can [place] GFR Calc Performed By: #### L 500.4050, L501.9985, L500.4100, L100.0100, L501.5200, L501.9910 #### [facility] [address] [place], [address] GAP 8 Normal 5-15 [facility] Comment on above: Performed By: #### L 500.4050, L501.9985, L500.4100, L100.0100, L501.5200, L501.9910 #### [facility] [address] [place], [address] GFR/1.73 sq M.predicted among non-blacks MDRD (S/P/Bld) [Vol rate/Area] 117 mL/min/{1.73_m2} Normal >60 [facility] Comment on above: Result Comment: Non- GFR Calc Performed By: #### L 500.4050, L501.9985, L500.4100, L100.0100, L501.5200, L501.9910 #### [facility] [address] [place], [address] Globulin (S) [Mass/Vol] 3.4 g/dL Normal 2.2-4.2 [facility] Comment on above: Performed By: #### L 500.4050, L501.9985, L500.4100, L100.0100, L501.5200, L501.9910 #### [facility] [address] [place], [address] Glucose [Mass/Vol] 195 mg/dL High 74-106 [facility] Comment on above: Result Comment: Fast ing Glucose result greater than or equal to 126 mg/dL suggests DIABETES MELLITUS per A.D.A. criteria. Performed By: #### L 500.4050, L501.9985, L500.4100, L100.0100, L501.5200, L501.9910 #### [facility] [address] [place], [address] Potassium [Moles/Vol] 4.3 mmol/L Normal 3.5-5.1 [facility] Comment on above: Performed By: #### L 500.4050, L501.9985, L500.4100, L100.0100, L501.5200, L501.9910 #### [facility] [address] [place], [address] Sodium [Moles/Vol] 137 mmol/L Normal 136-145 [facility] Comment on above: Performed By: #### L 500.4050, L501.9985, L500.4100, L100.0100, L501.5200, L501.9910 #### [facility] [address] [place], [address] T PROT 7.5 g/dL Normal 6.4-8.2 [facility] Comment on above: Performed By: #### L 500.4050, L501.9985, L500.4100, L100.0100, L501.5200, L501.9910 #### [facility] [address] [place], [address] Urea nitrogen [Mass/Vol] 23 mg/dL High 7-18 [facility] Comment on above: Performed By: #### L 500.4050, L501.9985, L500.4100, L100.0100, L501.5200, L501.9910 #### [facility] [address] [place], [address] Hemoglobin A1con 07-27-2024 HbA1c (Bld) [Mass fraction] 12.7 % High 3.8-5.6 [facility] Comment on above: Result Comment: Norm al < 5.7 % Prediabetic 5.7 - 6.4 % Diabetic >or= 6.5 % Please note range changes. Performed By: #### L 500.4050, L501.9985, L500.4100, L100.0100, L501.5200, L501.9910 #### [facility] [address] [place], [address] Lipid Profileon 07-27-2024 Cholesterol [Mass/Vol] 129 mg/dL Normal 200 [facility] Comment on above: Result Comment: <200 mg/dL Desirable 200-240 mg/dL Borderline >240 mg/dL High Risk Performed By: #### L 500.4050, L501.9985, L500.4100, L100.0100, L501.5200, L501.9910 #### [facility] [address] [place], [address] Cholesterol in HDL [Mass/Vol] 37 mg/dL Low [facility] Comment on above: Result Comment: The drugs N-Acetylcysteine and Metamizole may falsely depress this assay. Reference Range HDL <40 mg/dL Low HDL Cholesterol HDL >or= 60 mg/dL High HDL Cholesterol Performed By: #### L 500.4050, L501.9985, L500.4100, L100.0100, L501.5200, L501.9910 #### [facility] [address] [place], [address] LDL TNP Normal 0-130 [facility] Comment on above: Performed By: #### L 500.4050, L501.9985, L500.4100, L100.0100, L501.5200, L501.9910 #### [facility] [address] [place], [address] Triglyceride [Mass/Vol] 461 mg/dL High [facility] Comment on above: Result Comment: The drugs [...] 500.4050, L501.9985, L500.4100, L100.0100, L501.5200, L501.9910 #### [facility] [address] [place], [address] VLDL TNP Normal 5-40 [facility] Comment on above: Performed By: #### L 500.4050, L501.9985, L500.4100, L100.0100, L501.5200, L501.9910 #### [facility] [address] [place], [address] Magnesiumon 07-27-2024 Magnesium [Mass/Vol] 2.1 mg/dL Normal 1.6-2.6 [facility] Comment on above: Performed By: #### L 500.4050, L501.9985, L500.4100, L100.0100, L501.5200, L501.9910 #### [facility] [address] [place], [address] PSA,Total - Annual Screenon 07-27-2024 PSA,TOT SCREEN 0.36 ng/mL Normal 0.00-4.00 [facility] Comment on above: Result Comment: This test was performed using the TPSA assay method for the [place] chemistry system. Values obtained with different assay methods cannot be used interchangably. When changing PSA assays in the course of monitoring a patient, additional sequential testing should be carried out to confirm baseline values. Performed By: #### L 500.4050, L501.9985, L500.4100, L100.0100, L501.5200, L501.9910 #### [facility] [address] [place], [address] Absolute lymphocyte countOrd ered By: Berenice Pittman on 07-23-2023 Lymphocytes Auto (Unsp spec) [#/Vol] 2.71 10*3/uL 0.83-4.51 [facility] Basophil percentageOrdered B y: Berenice Pittman on 07-23-2023 Basophils/100 WBC (Bld) 0.8 % 0-1 [facility] Bilirubin [Mass/Vol] 0.60 mg/dL 0.20-1.00 [facility] Comment on above: For patients on eltr ombopag therapy, use of Dimension [place] TBIL is not recommended. Chloride [Moles/Vol] 107 mmol/L 98-107 [facility] Cholesterol [Mass/Vol] 130 mg/dL <200 [facility] Comment on above: <200 mg/dL Desirable 200-240 mg/dL Borderline >240 mg/dL High Risk Eosinophils/100 WBC (Bld) 3.8 % 0-5 [facility] Glucose [Mass/Vol] 180 mg/dL 74-106 [facility] Comment on above: Fasting Glucose resu lt greater than or equal to 126 mg/dL suggests DIABETES MELLITUS per A.D.A. criteria. Neutrophils (Bld) [#/Vol] 5.9 10*3/uL 2.0-7.7 [facility] Neutrophils/100 WBC (Bld) 59.3 % 47-70 [facility] Potassium [Moles/Vol] 3.9 mmol/L 3.5-5.1 [facility] Protein [Mass/Vol] 8.0 g/dL 6.4-8.2 [facility] Sodium [Moles/Vol] 137 mmol/L 136-145 [facility] Triglyceride [Mass/Vol] 224 mg/dL <199 [facility] Comment on above: The drugs N-Acetylcy steine and Metamizole may falsely depress this assay.Serum Triglycerides Reference Interval Normal <150 mg/dL Borderline high 150 - 199 mg/dL High 200 - 499 mg/dL Very High > or = 500 mg/dL WBC (Bld) [#/Vol] 9.9 10*3/uL 4.4-11.0 [facility] Blood erythrocytes count (nu mber/volume)Ordered By: Berenice Pittman on 07-23-2023 RBC (Bld) [#/Vol] 5.94 10*6/uL 4.6-6.2 [facility] Blood hemoglobin measurement (mass/volume)Ordered By: Berenice Pittman on 07-23-2023 Hemoglobin (Bld) [Mass/Vol] 16.9 g/dL 13.0-16.5 [facility] Blood lymphocytes/100 leukoc ytesOrdered By: Berenice Pittman on 07-23-2023 Lymphocytes/100 WBC (Bld) 27.5 % 19-41 [facility] Blood monocytes/100 leukocyt esOrdered By: Berenice Pittman on 07-23-2023 Monocytes/100 WBC (Bld) 7.2 % 0-10 [facility] Blood platelet mean volumeOr dered By: Berenice Pittman on 07-23-2023 Platelet mean volume (Bld) [Entitic vol] 9.9 fL 6.2-12.0 [facility] Determination of erythrocyte mean corpuscular volume (MCV)Ordered By: Berenice Pittman on 07-23-2023 MCV (RBC) [Entitic vol] 84.5 fL 80-94 [facility] Hematocrit Auto (Bld) [Volum e fraction]Ordered By: Berenice Pittman on 07-23-2023 Hematocrit (Bld) [Volume fraction] 50.2 % 40-54 [facility] Laboratory - Chemistry and C hemistry - challengeOrdered By: Berenice Pittman on 07-23-2023 ALP [Catalytic activity/Vol] 90 U/L 45-117 [facility] ALT [Catalytic activity/Vol] 82 U/L 16-61 [facility] CO2 [Moles/Vol] 23.0 mmol/L 21.0-32.0 [facility] Globulin (S) [Mass/Vol] 3.5 g/dL 2.2-4.2 [facility] Urea nitrogen/Creatinine [Mass ratio] 18.9 mg/mg 10-20 [facility] - Hematology and Cell countsOrdered By: Berenice Pittman on 07-23-2023 Erythrocyte distribution width (RBC) [Entitic vol] 37.4 fL 35.1-43.9 [facility] Erythrocyte distribution width (RBC) [Ratio] 12.4 % 11.6-14.6 [facility] Immature granulocytes/100 WBC (Bld) 1.400 % 0.0-0.9 [facility] Comment on above: IG% - Immature Granu locytes (promyelocytes, myelocytes and metamyelocytes) > 1% indicates that a LEFT SHIFT is Present. MCH (RBC) [Entitic mass] 28.5 pg 27.0-32.0 [facility] Nucleated RBC/100 WBC (Bld) [Ratio] 0 % 0-5 [facility] - Hematology and Cell countson 07-23-2023 HbA1c (Bld) [Mass fraction] 12.2 % 4.2-6.3 [facility] MCHC Auto (RBC) [Mass/Vol]Or dered By: Berenice Pittman on 07-23-2023 MCHC (RBC) [Mass/Vol] 33.7 g/dL 32-36 [facility] No Panel InformationOrdered By: Berenice Pittman on 07-23-2023 Estimated GFR (MDRD) Amer 139 mL/min >60 [facility] Comment on above: GFR Calc Estimated GFR (MDRD) Non-Af Amer 115 mL/min >60 [facility] Comment on above: Non- GFR Calc Prostate Specific Antigen Screen 0.40 ng/mL 0.00-4.00 [facility] Comment on above: This test was perfor med using the TPSA assay method [facility] the[facility]. Values obtained with differentassay methods cannot be used interchangably.When changing PSA assays in the course of monitoring apatient, additional sequential testing should be carriedout to confirm baseline values. Platelets bldOrdered By: Geovanny Pittman on 07-23-2023 Platelets (Bld) [#/Vol] 245 10*3/uL 150-450 [facility] Serum or plasma albumin lee urement (mass/volume)Ordered By: Berenice Pittman on 07-23-2023 Albumin [Mass/Vol] 4.5 g/dL 3.2-5.0 [facility] Serum or plasma albumin/glob ulin mass ratioOrdered By: Berenice Pittman on 07-23-2023 Albumin/Globulin [Mass ratio] 1.3 {ratio} 0.9-2.4 [facility] Serum or plasma calcium lee urement (mass/volume)Ordered By: Berenice Pittman on 07-23-2023 Calcium [Mass/Vol] 9.9 mg/dL 8.5-10.1 [facility] Serum or plasma cholesterol in HDL measurement (mass/volume)Ordered By: Berenice Pittman on 07-23-2023 Cholesterol in HDL [Mass/Vol] 46 mg/dL >40 [facility] Comment on above: The drugs N-Acetylcy steine and Metamizole may falsely depress this assay. Reference Range HDL <40 mg/dL Low HDL Cholesterol HDL >or= 60 mg/dL High HDL Cholesterol Serum or plasma cholesterol in VLDL measurement (mass/volume)Ordered By: Berenice Pittman on 07-23-2023 Cholesterol in VLDL [Mass/Vol] 45 mg/dL 5-40 [facility] Serum or plasma creatinine m easurement (mass/volume)Ordered By: Berenice Pittman on 07-23-2023 Creatinine [Mass/Vol] 0.74 mg/dL 0.70-1.30 [facility] Comment on above: The validity of the calculated GFR & GFRAA in patients over 70 years has not been determined. Clinical correlation is essential. Serum or plasma low density lipoprotein (LDL) cholesterol measurement (mass/volume)Ordered By: Berenice Pittman on 07-23-2023 Cholesterol in LDL [Mass/Vol] 39 mg/dL 0-130 [facility] Serum or plasma urea nitroge n measurement (mass/volume)Ordered By: Berenice Pittman on 07-23-2023 Urea nitrogen [Mass/Vol] 14 mg/dL 7-18 [facility] Thin prep Papanicolaou smear with manual screeningOrdered By: Berenice Pittman on 07-23-2023 Thin prep Papanicolaou smear with manual screening 37 U/L 1537 [facility] Thin prep Papanicolaou smear with manual screening 7 - [facility] Absolute lymphocyte counton 06-27-2022 Lymphocytes Auto (Unsp spec) [#/Vol] 1.56 10*3/uL 0.83-4.51 [facility] Work Phone: Basophil percentageon 2021 Basophils/100 WBC (Bld) 0.8 % 0-1 [facility] Work Phone: Bilirubin [Mass/Vol] 0.60 mg/dL 0.20-1.00 [facility] Work Phone: Comment on above: For patients on eltr ombopag therapy, use of Dimension [place] TBIL is not recommended. Chloride [Moles/Vol] 100 mmol/L 98-107 [facility] Work Phone: Cholesterol [Mass/Vol] 121 mg/dL <200 [facility] Work Phone: Comment on above: <200 mg/dL Desirable 200-240 mg/dL Borderline >240 mg/dL High Risk Eosinophils/100 WBC (Bld) 3.8 % 0-5 [facility] Work Phone: Glucose [Mass/Vol] 316 mg/dL 74-106 [facility] Work Phone: Comment on above: Glucose result great er than or equal to 200 mg/dLsuggests DIABETES MELLITUS per A.D.A. criteria. Neutrophils (Bld) [#/Vol] 3.5 10*3/uL 2.0-7.7 [facility] Work Phone: Neutrophils/100 WBC (Bld) 57.5 % 47-70 [facility] Work Phone: Potassium [Moles/Vol] 4.3 mmol/L 3.5-5.1 [facility] Work Phone: Protein [Mass/Vol] 7.8 g/dL 6.4-8.2 [facility] Work Phone: Sodium [Moles/Vol] 133 mmol/L 136-145 [facility] Work Phone: Triglyceride [Mass/Vol] 365 mg/dL <199 [facility] Work Phone: Comment on above: The drugs N-Acetylcy steine and Metamizole may falsely depress this assay.Serum Triglycerides Reference Interval Normal <150 mg/dL Borderline high 150 - 199 mg/dL High 200 - 499 mg/dL Very High > or = 500 mg/dL WBC (Bld) [#/Vol] 6.1 10*3/uL 4.4-11.0 [facility] Work Phone: Blood erythrocytes count (nu mber/volume)on 06-27-2022 RBC (Bld) [#/Vol] 5.55 10*6/uL 4.6-6.2 [facility] Work Phone: Blood hemoglobin measurement (mass/volume)on 06-27-2022 Hemoglobin (Bld) [Mass/Vol] 15.7 g/dL 13.0-16.5 [facility] Work Phone: Blood lymphocytes/100 leukoc yteson 06-27-2022 Lymphocytes/100 WBC (Bld) 25.6 % 19-41 [facility] Work Phone: Blood monocytes/100 leukocyt eson 06-27-2022 Monocytes/100 WBC (Bld) 10.3 % 0-10 [facility] Work Phone: Blood platelet mean volumeon 06-27-2022 Platelet mean volume (Bld) [Entitic vol] 9.9 fL 6.2-12.0 [facility] Work Phone: Determination of erythrocyte mean corpuscular volume (MCV)on 06-27-2022 MCV (RBC) [Entitic vol] 83.2 fL 80-94 [facility] Work Phone: Hematocrit Auto (Bld) [Volum e fraction]on 06-27-2022 Hematocrit (Bld) [Volume fraction] 46.2 % 40-54 [facility] Work Phone: Laboratory - Chemistry and C hemistry - challengeon 06-27-2022 ALP [Catalytic activity/Vol] 92 U/L 45-117 [facility] Work Phone: ALT [Catalytic activity/Vol] 91 U/L 16-61 [facility] Work Phone: CO2 [Moles/Vol] 28.0 mmol/L 21.0-32.0 [facility] Work Phone: Globulin (S) [Mass/Vol] 3.6 g/dL 2.2-4.2 [facility] Work Phone: Urea nitrogen/Creatinine [Mass ratio] 19.4 mg/mg 10-20 [facility] Work Phone: Laboratory - Hematology and Cell countson 06-27-2022 Erythrocyte distribution width (RBC) [Entitic vol] 39.0 fL 35.1-43.9 [facility] Work Phone: Erythrocyte distribution width (RBC) [Ratio] 12.8 % 11.6-14.6 [facility] Work Phone: Immature granulocytes/100 WBC (Bld) 2.000 % 0.0-0.9 [facility] Work Phone: Comment on above: IG% - Immature Granu locytes (promyelocytes, myelocytes and metamyelocytes) > 1% indicates that a LEFT SHIFT is Present. MCH (RBC) [Entitic mass] 28.3 pg 27.0-32.0 [facility] Work Phone: Nucleated RBC/100 WBC (Bld) [Ratio] 0 % 0-5 [facility] Work Phone: MCHC Auto (RBC) [Mass/Vol]on 06-27-2022 MCHC (RBC) [Mass/Vol] 34.0 g/dL 32-36 [facility] Work Phone: No Panel Informationon 06-27 Estimated GFR (MDRD) Amer 115 mL/min >60 [facility] Work Phone: Comment on above: GFR Calc Estimated GFR (MDRD) Non-Af Amer 95 mL/min >60 [facility] Work Phone: Comment on above: Non- GFR Calc Prostate Specific Antigen Screen 0.43 ng/mL 0.00-4.00 [facility] Work Phone: Comment on above: This test was perfor med using the TPSA assay method for theOpendiscTrilibis chemistry system. Values obtained with differentassay methods cannot be used interchangably.When changing PSA assays in the course of monitoring apatient, additional sequential testing should be carriedout to confirm baseline values. Platelets bldon 06-27-2022 Platelets (Bld) [#/Vol] 203 10*3/uL 150-450 [facility] Work Phone: Serum or plasma albumin lee urement (mass/volume)on 06-27-2022 Albumin [Mass/Vol] 4.2 g/dL 3.2-5.0 [facility] Work Phone: Serum or plasma albumin/glob ulin mass ratioon 06-27-2022 Albumin/Globulin [Mass ratio] 1.2 {ratio} 0.9-2.4 [facility] Work Phone: Serum or plasma calcium lee urement (mass/volume)on 06-27-2022 Calcium [Mass/Vol] 9.7 mg/dL 8.5-10.1 [facility] Work Phone: Serum or plasma cholesterol in HDL measurement (mass/volume)on 06-27-2022 Cholesterol in HDL [Mass/Vol] 39 mg/dL >40 [facility] Work Phone: Comment on above: The drugs N-Acetylcy steine and Metamizole may falsely depress this assay. Reference Range HDL <40 mg/dL Low HDL Cholesterol HDL >or= 60 mg/dL High HDL Cholesterol Serum or plasma cholesterol in VLDL measurement (mass/volume)on 06-27-2022 Cholesterol in VLDL [Mass/Vol] 73 mg/dL 5-40 [facility] Work Phone: Serum or plasma creatinine m easurement (mass/volume)on 06-27-2022 Creatinine [Mass/Vol] 0.88 mg/dL 0.70-1.30 [facility] Work Phone: Comment on above: The validity of the calculated GFR & GFRAA in patients over 70 years has not been determined. Clinical correlation is essential. Serum or plasma low density lipoprotein (LDL) cholesterol measurement (mass/volume)on 06-27-2022 Cholesterol in LDL [Mass/Vol] 9 mg/dL 0-130 [facility] Work Phone: Serum or plasma urea nitroge n measurement (mass/volume)on 06-27-2022 Urea nitrogen [Mass/Vol] 17 mg/dL 7-18 [facility] Work Phone: Thin prep Papanicolaou smear with manual screeningon 06-27-2022 Thin prep Papanicolaou smear with manual screening 39 U/L 15-37 [facility] Work Phone: Thin prep Papanicolaou smear with manual screening 11 15-15 [facility] Work Phone: Whole blood hemoglobin A1c/t otal hemoglobin ratio (mass fraction)on 06-27-2022 HbA1c (Bld) [Mass fraction] 11.8 % 3.8-5.6 [facility] Work Phone: Comment on above: Normal < 5.7 % Predi abetic 5.7 - 6.4 % Diabetic >or= 6.5 % Please note range changes. Interpretation of Borrelia b urgdorferi antibody assayon 2022 B. burgdorferi Ab (S) [Interp] REF LAB [facility] Work Phone: Thin prep Papanicolaou smear with manual screeningon 2022 Thin prep Papanicolaou smear with manual screening Negative Negative [facility] Work Phone: Comment on above: Lyme Antibody Negati veNo laboratory evidence of infection with B. burgdorferi(Lyme disease). Negative results may occur in patientsrecently infected (greater than or equal to 14 days) withB. burgdorferi. If recent infection is suspected, repeattesting on a new sample collected in 7 to 14 days isrecommended.Performed at: [address] [id number] Director: Jabier Ashford PhD, Phone: [phone] Basophil percentageon 2021 Bilirubin [Mass/Vol] 0.40 mg/dL 0.20-1.00 [facility] Work Phone: Comment on above: For patients on eltr ombopag therapy, use of Dimension [place] TBIL is not recommended. Chloride [Moles/Vol] 104 mmol/L 98-107 [facility] Work Phone: Glucose [Mass/Vol] 363 mg/dL 74-106 [facility] Work Phone: Comment on above: Glucose result great er than or equal to 200 mg/dLsuggests DIABETES MELLITUS per A.D.A. criteria. Potassium [Moles/Vol] 4.0 mmol/L 3.5-5.1 [facility] Work Phone: Protein [Mass/Vol] 7.1 g/dL 6.4-8.2 [facility] Work Phone: Sodium [Moles/Vol] 136 mmol/L 136-145 [facility] Work Phone: Laboratory - Chemistry and C hemistry - challengeon 01-07-2022 ALP [Catalytic activity/Vol] 90 U/L 45-117 [facility] Work Phone: ALT [Catalytic activity/Vol] 57 U/L 16-61 [facility] Work Phone: CO2 [Moles/Vol] 25.0 mmol/L 21.0-32.0 [facility] Work Phone: Globulin (S) [Mass/Vol] 3.4 g/dL 2.2-4.2 [facility] Work Phone: Urea nitrogen/Creatinine [Mass ratio] 21.7 mg/mg 10-20 [facility] Work Phone: No Panel Informationon 01-07 Estimated GFR (MDRD) Amer 92 mL/min >60 [facility] Work Phone: Comment on above: GFR Calc Estimated GFR (MDRD) Non-Af Amer 76 mL/min >60 [facility] Work Phone: Comment on above: Non- GFR Calc Serum or plasma albumin lee urement (mass/volume)on 01-07-2022 Albumin [Mass/Vol] 3.7 g/dL 3.2-5.0 [facility] Work Phone: Serum or plasma albumin/glob ulin mass ratioon 01-07-2022 Albumin/Globulin [Mass ratio] 1.1 {ratio} 0.9-2.4 [facility] Work Phone: Serum or plasma calcium lee urement (mass/volume)on 01-07-2022 Calcium [Mass/Vol] 8.7 mg/dL 8.5-10.1 [facility] Work Phone: Serum or plasma creatinine m easurement (mass/volume)on 01-07-2022 Creatinine [Mass/Vol] 1.06 mg/dL 0.70-1.30 [facility] Work Phone: Comment on above: The validity of the calculated GFR & GFRAA in patients over 70 years has not been determined. Clinical correlation is essential. Serum or plasma urea nitroge n measurement (mass/volume)on 01-07-2022 Urea nitrogen [Mass/Vol] 23 mg/dL 7-18 [facility] Work Phone: Thin prep Papanicolaou smear with manual screeningon 01-07-2022 Thin prep Papanicolaou smear with manual screening 28 U/L 15-37 [facility] Work Phone: Thin prep Papanicolaou smear with manual screening 7 5-15 [facility] Work Phone: Whole blood hemoglobin A1c/t otal hemoglobin ratio (mass fraction)on 01-07-2022 HbA1c (Bld) [Mass fraction] 11.5 % 3.8-5.6 [facility] Work Phone: Comment on above: Normal < 5.7 % Predi abetic 5.7 - 6.4 % Diabetic >or= 6.5 % Please note range changes. Bacteria identified Cx Nom ( Wound) Wound Culture Staphylococcus aureus [facility] Work Phone: Gram stain for investigation of transfusion reaction Microscopic observation Gram stain Nom (Unsp spec) [facility] Work Phone: Vital Signs Date Time Vital Sign Value Performing Clinician Faci lity 07-23-2023 19:46-0500 Body height 180.34 cm [facility] 07-23-2023 19:46-0500 Body mass index (BMI) [Ratio] 28.5 kg/m2 [facility] 07-23-2023 19:46-0500 Body temperature 97.5 [degF] [facility] 07-23-2023 19:46-0500 Body weight 92.98 kg [facility] 07-23-2023 19:46-0500 Diastolic blood pressure 70 mm[Hg] [facility] 07-23-2023 19:46-0500 Heart rate 88 /min [facility] 07-23-2023 19:46-0500 Respiratory rate 18 /min [facility] 07-23-2023 19:46-0500 SaO2% (BldA) [Mass fraction] 96 % [facility] 07-23-2023 19:46-0500 Systolic blood pressure 115 mm[Hg] [facility] 06-27-2022 18:01-0500 Body height 180.34 cm [facility] Work Phone: 06-27-2022 18:01-0500 Body mass index (BMI) [Ratio] 30.2 kg/m2 [facility] Work Phone: 06-27-2022 18:01-0500 Body temperature 97.5 [degF] [facility] Work Phone: 06-27-2022 18:01-0500 Body weight 98.42 kg [facility] Work Phone: 06-27-2022 18:01-0500 Diastolic blood pressure 70 mm[Hg] [facility] Work Phone: 06-27-2022 18:01-0500 Heart rate 92 /min [facility] Work Phone: 06-27-2022 18:01-0500 Respiratory rate 18 /min [facility] Work Phone: 06-27-2022 18:01-0500 SaO2% (BldA) [Mass fraction] 95 % [facility] Work Phone: 06-27-2022 18:01-0500 Systolic blood pressure 110 mm[Hg] [facility] Work Phone: 04-25-2022 19:07-0400 Body mass index (BMI) [Ratio] 30.2 kg/m2 [facility] Work Phone: 04-25-2022 19:07-0400 Body temperature 97.9 [degF] [facility] Work Phone: 04-25-2022 19:07-0400 Body weight 98.42 kg [facility] Work Phone: 04-25-2022 19:07-0400 Diastolic blood pressure 60 mm[Hg] [facility] Work Phone: 04-25-2022 19:07-0400 Heart rate 121 /min [facility] Work Phone: 04-25-2022 19:07-0400 Respiratory rate 18 /min [facility] Work Phone: 04-25-2022 19:07-0400 SaO2% (BldA) [Mass fraction] 96 % [facility] Work Phone: 04-25-2022 19:07-0400 Systolic blood pressure 118 mm[Hg] [facility] Work Phone: 2022 19:05-0400 Body height 180.34 cm [facility] Work Phone: 2022 19:05-0400 Body mass index (BMI) [Ratio] 30.8 kg/m2 [facility] Work Phone: 2022 19:05-0400 Body temperature 97.9 [degF] [facility] Work Phone: 2022 19:05-0400 Body weight 100.24 kg [facility] Work Phone: 2022 19:05-0400 Diastolic blood pressure 70 mm[Hg] [facility] Work Phone: 2022 19:05-0400 Heart rate 94 /min [facility] Work Phone: 2022 19:05-0400 Respiratory rate 18 /min [facility] Work Phone: 2022 19:05-0400 SaO2% (BldA) [Mass fraction] 95 % [facility] Work Phone: 2022 19:05-0400 Systolic blood pressure 122 mm[Hg] [facility] Work Phone: 01-07-2022 18:54-0400 Body mass index (BMI) [Ratio] 30.8 kg/m2 [facility] Work Phone: 01-07-2022 18:54-0400 Body temperature 97.9 [degF] [facility] Work Phone: 01-07-2022 18:54-0400 Body weight 100.24 kg [facility] Work Phone: 01-07-2022 18:54-0400 Diastolic blood pressure 70 mm[Hg] [facility] Work Phone: 01-07-2022 18:54-0400 Heart rate 94 /min [facility] Work Phone: 01-07-2022 18:54-0400 Respiratory rate 18 /min [facility] Work Phone: 01-07-2022 18:54-0400 SaO2% (BldA) [Mass fraction] 95 % [facility] Work Phone: 01-07-2022 18:54-0400 Systolic blood pressure 122 mm[Hg] [facility] Work Phone: Encounters Encounter Date Encounter Type Care Provider Facility Start: 05-25-2025 End: 05-25-2025 Emergency department patient visit Hemal Tucker Facility:[facility] Start: 05-24-2025 End: 05-24-2025 ambulatory Berenice Zain SURGICAL FIRST ASSISTANT Facility:[facility] Start: 07-27-2024 End: 07-27-2024 ambulatory Berenice Zain SURGICAL FIRST ASSISTANT Facility:[facility] Start: 07-23-2023 End: 07-23-2023 ambulatory [facility] Work Phone: Start: 07-23-2023 End: 07-23-2023 Patient encounter procedure [facility] Specimen Work Phone: Start: 06-27-2022 End: 06-27-2022 ambulatory [facility] Work Phone: Start: 06-27-2022 End: 06-27-2022 Patient encounter procedure [facility] Specimen Start: 2022 End: 2022 Patient encounter procedure [facility] Spec[facility] Start: 01-07-2022 End: 01-07-2022 Patient encounter procedure [facility] Spec[facility] Start: 06-22-2021 Patient encounter status [facility] Procedures Date Procedure Procedure Detail Performing Clinician Investigation of transfusion reaction Microbial culture, routine Plan of Treatment Date Care Activity Detail Author Start: 2022 Measurement of Borre mendoza burgdorferi antibody [facility] Work Phone: Start: 2022 [facility] Work Phone: Microscopic observat ion [Identifier] in Unspecified specimen by Gram stain Gram Stain [facility] Work Phone: Wound Culture Wound Culture [facility] Work Phone: Payers Date Payer Category Payer Self-pay [id number] 2024 Unknown [id number] Private Health Insurance [facility] [id number] Unknown [id number] Unknown [id number] Social History Date Type Detail Facility Start: 10-25-2020 End: 10-25-2020 Tobacco smoking status NHIS Unknown if ever smoked [facility] Start: 1965 Sex Assigned At Male [facility] Medical Equipment Procedure Code Equipment Code Equipment Origin al Text Equipment Identifier Dates Blood Sugar Diagnostic (Accu-Chek Smartview Test Strip) strip Start: 12-17-2021 Lancets (Accu-Ch ek Fastclix Lancet Drum) [facility] Start: 12-23-2019 lancing device w ith lancets [...] Drum) misc Start: 12-23-2019 lancing device [facility] lancets kit Start: 06-19-2018 Blood [...] Drum) misc Start: 07-23-2023 lancing device [facility] lancets kit Start: 06-19-2018 Blood [...] 07-23-2023 Lancets (Accu-Ch ek Fastclix Lancet Drum) [facility] Start: 12-23-2019 End: 07-23-2023 Evaluation note Note Date & Type Note Facility Evaluation note Diagnosis Onset Date [id number] acute Peripheral neuropathy acute Cellulitis of right lower leg acute [id number] acute [facility] Work Phone: Evaluation note Note Date & Type Note Facility Evaluation note Diagnosis Onset Date Bronchitis acute Right acute otitis media acu te Sinusitis acute Diabetes type 2, uncontrolled acute Hypertension chronic [facility] Work Phone: Evaluation note Note Date & Type Note Facility Evaluation note Diagnosis Onset Date Anxiety acute Diabetes type 2, uncontrolled acute Hyperlipidemia LDL goal <130 acute [facility] Work Phone: Chief Complaint and Reason for Visit Chief Complaint I&D R) infected 2nd toe Cellulitis/Wound care W/R leg Reason for Visit [id number] Peripheral neuropathy Cellulitis of right lower leg [id number] Chief Complaint Sinus cough X4 days medication [...] Active Member Role Status Dates Berenice Pittman SURGICAL FIRST ASSISTANT, SURGICAL FIRST ASSISTANT-C Primary Care Provider Active Team Status: Inactive Member Role Status Dates Berenice Pittman NP, KITTY-C Attending Provider, Referring Provider Active Team Status: Inactive Member Role Status Dates Berenice Pittman SURGICAL FIRST ASSISTANT, SURGICAL FIRST ASSISTANT-C Primary Care Provider, Attend ing Provider Active (unrecognized sect ion and content) No Status Records Found INFORMATION SOURCE (unrecogn ized section and content) DATE CREATED AUTHOR 05/26/2025 [facility] FOR RECORDS PERTAINING TO PATIENTS WHO [...] BE BASED ON THE PRIMARY CLINICAL RECORDS. [facility] [employer], [facility]. provides no warranty or guarantee of the accuracy or completeness of information in this document.
[2025-07-11 23:00] LABS: D-Dimer Quantitative (DVT/PE) 0.27 FEU/ug/m (0.27-0.49)
[2025-07-11 23:06] LABS: AST(SGOT) 30 U/L (<=37); Alanine Aminotransfer ALT/SGPT 43 U/L (<=46); Albumin, Serum 4.6 g/dL (3.4-4.8); Alkaline Phosphatase 87 U/L (40-129); Anion Gap 11 (7-18); BUN 21 mg/dL (4-19); BUN/Creat Ratio 25.4 RATIO (10-20); CPK Total, Creatine Kinase 58 U/L (24-195); Calcium,Total 10.0 mg/dL (7.6-11.0); Carbon Dioxide 26.5 mmol/L (20.0-29.0); Chloride 97 mmol/L (96-106); Globulin 2.8 g/dL (2.2-4.2); Glucose 339 mg/dL (70-99); Potassium 4.7 mmol/L (3.5-5.1)
[2025-07-11 23:10] LABS: CRP < 3.00 mg/L (0.0-3.0); Lipase 30 U/L (13-75)
== END | disposition home or self-care (01) ==
PROVIDERS: PCP Nurse Practitioner; Referring Provider Nurse Practitioner; Visit Provider Nurse Practitioner
DX: N50.82 Scrotal pain (principal); E11.65 Type 2 diabetes mellitus with hyperglycemia; I10 Essential (primary) hypertension; R52 Pain, unspecified; M79.18 Myalgia, other site
CPT/HCPCS: 80053; 82550; 83036; 83690; 85379; 86140